=== PATIENT | female | born 1960 | race Caucasian/White ===

== ENCOUNTER 2019-04-27 11:02 | Emergency (ER) | payer OTHER, MEDICARE, SELFPAY ==
[2019-04-27 10:59] VITALS: BP 149/88; PULSE 80; RESP 12; TEMP 36.4; O2SAT 97
[2019-04-27 11:34] LABS: Basophils Absolute Auto 0.1 K/mm3 (0.0-0.1); Basophils Percent Auto 0.4 % (0.2-1.2); Eosinophils Absolute Auto 0.3 K/mm3 (0-0.3); Eosinophils Percent Auto 2.1 % (0-4.4); Hematocrit 41.6 % (37.0-47.0); Hemoglobin 13.5 g/dL (12.0-15.0); Immature Granulocyte Absolute 0.02 K/mm3 (0.00-0.031); Immature Granulocyte Percent A 0.2 % (0-0.5); Lymphocytes Absolute Auto 1.87 K/mm3 (0.9-3.2); Lymphocytes Percent Auto 15.4 % (18.3-44.2); Mean Corpuscular HGB Conc 32.5 g/dl (32-36); Mean Corpuscular Hemoglobin 30.3 pg (26-34); Mean Corpuscular Volume 93.3 fl (80-100); Mean Platelet Volume 10.5 fl (7.4-10.4); Monocytes Absolute Auto 0.7 K/mm3 (0.1-0.6); Monocytes Percent Auto 5.6 % (2.6-8.5); Neutrophils Absolute Auto 9.3 K/mm3 (1.3-6.7); Neutrophils Percent Auto 76.3 % (45.5-73.1); Platelet Count Result 247 k/mm3 (150-375); Red Blood Count 4.46 M/mm3 (4.2-5.4); Red Cell Distribution Width 14.7 % (11.5-14.5); White Blood Count 12.1 K/mm3 (4.5-10.0)
[2019-04-27 11:51] LABS: Alanine Aminotransferase 15 U/L (4-35); Alkaline Phosphatase 110 U/L (38-126); Aspartate Amino Transferase 19 U/L (14-36); Bilirubin,Total 0.7 mg/dL (0.2-1.3); Blood Urea Nitrogen 17 mg/dL (7-17); Calcium 8.9 mg/dL (8.4-10.2); Carbon Dioxide 29 mmol/L (22-30); Chloride 94 mmol/L (98-107); Estimated CRCL calculation 66 ml/min; Estimated Glomerular Filt Rate 57; Glucose 303 mg/dL (65-105); Potassium 4.2 mmol/L (3.4-5.0); Sodium 134 mmol/L (137-145)
--- NOTE | 2019-04-27 13:30 | ED.ABDPAIN ---
HPI - Abdominal Pain General Chief Complaint: Vaginal Bleeding Stated Complaint: VAG BLEED Time Seen by Provider: 04/27/19 11:14 Source: patient Mode of arrival: EMS Limitations: no limitations History of Present Illness HPI narrative: Patient presents with chief complaint of vaginal bleeding that was noted when she woke up this morning. Patient states that she had blood all over the bed sheets. care home staff states that patient went through 2 adult diapers. Patient denies any pain, weakness, dizziness, shortness of breath at this time. Patient states she has a history of vaginal bleeding and states during her last episode Dr. Rivera took her to the OR and performed a D&C. Patient states she also had a further evaluation which resulted that she was negative for cancer. Patient states she was informed by Dr. Rivera that if this happens again she will likely have to have a D&C or hysterectomy. Patient is on blood thinners due to past stroke. Patient also has diabetes. Related Data Home Medications Medication Instructions Recorded Confirmed acetaminophen 650 mg PO BID PRN 02/01/19 03/22/19 ascorbic acid (vitamin C) [Vitamin 500 mg PO BID 02/01/19 03/22/19 C] atorvastatin 80 mg PO HS 02/01/19 03/22/19 bumetanide 1 mg PO DAILY 02/01/19 03/22/19 clonidine HCl 0.1 mg PO BID 02/01/19 03/22/19 ergocalciferol (vitamin D2) 50,000 unit PO WEEKLY 02/01/19 03/22/19 [Vitamin D2] fluoxetine 20 mg PO DAILY 02/01/19 03/22/19 gentamicin 1 applic TOPICAL DIRECTED 02/01/19 03/22/19 hydrocodone-acetaminophen 1 tablet PO Q4H PRN 02/01/19 03/22/19 memantine 5 mg PO QAM 02/01/19 03/22/19 metoprolol succinate 25 mg PO DAILY 02/01/19 03/22/19 mupirocin 1 applic TOPICAL DIRECTED 02/01/19 03/22/19 senna 8.6 mg PO DAILY PRN 02/01/19 03/22/19 spironolactone 25 mg PO DAILY 02/01/19 03/22/19 Eliquis 5 mg PO BID 03/22/19 03/22/19 Saccharomyces boulardii 500 mg PO DAILY 03/22/19 03/22/19 cyanocobalamin (vitamin B-12) 1,000 mcg PO DAILY 03/22/19 03/22/19 [Vitamin B-12] Allergies Allergy/AdvReac Type Severity Reaction Status Date / Time No Known Allergies Allergy Unknown Verified 04/27/19 11:07 Review of Systems Review of Systems: Narrative: CONSTITUTIONAL: Denies fever, chills, or sweats. EYES: Denies visual changes, redness, or discharge. ENT: Denies rhinorrhea, congestion, sore throat, or otalgia. CARDIOVASCULAR: Denies chest pain, palpitations, or edema. RESPIRATORY: Denies cough or dyspnea. GASTROINTESTINAL: Denies abdominal pain, nausea, vomiting, or diarrhea. GENITOURINARY: Reports vaginal bleeding denies dysuria or hematuria. SKIN: Denies rash or itching. MUSCULOSKELETAL: Denies back pain, joint pain, or myalgia. NEUROLOGIC: Denies headache, numbness, dizziness, or weakness. PSYCHIATRIC: Denies anxiety or depression. [facility] Past Medical History Medical History (Updated 04/27/19 @ 14:06 by Jose Alberto Cardoso PA-C) Acute respiratory failure with hypoxia Current use of [facility] anticoagulation CVA (cerebral vascular accident) In 2015 and 2016, with residual right-sided weakness and expressive aphasia. Dementia Cognitive dysfunction felt to be a result of her strokes. Diastolic congestive heart failure Hypertension Morbid obesity Post-menopausal bleeding Status post endometrial curettage in January 2019 with benign pathology. Type 2 diabetes mellitus Insulin-dependent. Venous stasis ulcer Surgical History Surgical History (Updated 03/22/19 @ 17:11 by Marcela Bal PA-C) Status post debridement Upper buttock wound with necrotizing infection in 2016. Social History Social History (Updated 03/22/19 @ 17:28 by Marcela Bal PA-C) Social History: The patient lives at [facility] in [place]. She has been in prison since her stroke in 2016. No alcohol, tobacco, or drug use. Her brother, Mikey, is her healthcare power of mergers and acquisitions attorney. Her primary care providers Dr. Marty Birmingham. Terra
--- NOTE | 2019-04-27 13:33 | PC.NURSE ---
called pharm and requested insulin for pt, left on vm
[2019-04-27] MEDS: INSULIN ASPART (*BKC) 100 UNITS/ML SUB-Q (14:17)
[2019-04-27 14:18] VITALS: BP 153/93; PULSE 77; RESP 23; O2SAT 96
== END 2019-04-27 14:30 ==
PROVIDERS: Physician Assistant; Emergency Provider Emergency Medicine; PCP Student in an Organized Health Care Education/Training Program
DX: N93.9 Abnormal uterine and vaginal bleeding, unspecified (principal); E11.65 Type 2 diabetes mellitus with hyperglycemia; Z79.4 Long term (current) use of insulin; I69.920 Aphasia following unspecified cerebrovascular disease; I69.951 Hemiplegia and hemiparesis following unspecified cerebrovascular disease affecting right dominant side; I10 Essential (primary) hypertension; E66.9 Obesity, unspecified; Z68.43 Body mass index [BMI] 50.0-59.9, adult
CPT/HCPCS: 36415; 80053; 85025; 99284; J1815

== ENCOUNTER 2019-06-17 21:13 | Inpatient (IN) | payer OTHER, MEDICARE, SELFPAY ==
--- NOTE | ~2019-06-17 | XR_ITS ---
EXAMINATION: XR foot LT min 3V DATE: 06/18/2019 13:17 INDICATION: Left foot ulcer TECHNIQUE: Dorsoplantar, two oblique and lateral views of the left foot were obtained. COMPARISON: None. FINDINGS: Alignment is normal. No fracture. No cortical erosions or periosteal reaction. Mild osteoarthritis at the first metatarsophalangeal and a few interphalangeal joints. Moderate-sized plantar calcaneal spu r. Small enthesopathic ossicle at the distal Achilles tendon. No left ankle joint effusion. Diffuse s oft tissue swelling about the left foot, ankle and distal lower leg. Multiple dystrophic calcificatio ns in the soft tissues at the distal lower leg which can be seen with venous stasis. IMPRESSION: 1. No osteomyelitis or other acute osseous abnormality. Reviewed, dictated and finalized at location A.
--- NOTE | ~2019-06-17 | US_ITS ---
EXAMINATION: US pelvic complete w TV DATE: 06/18/2019 13:18 INDICATION: Postmenopausal bleeding TECHNIQUE: Multiple transabdominal sonographic images of the pelvis were obtained. Patient was unable to tolerate endovaginal probe. COMPARISON: 02/02/2019 FINDINGS: The uterus measures 10.4 x 3.7 x 6.8 cm. The endometrial complex measures 20 mm in thickness however this appears to be comprised almost exclusively by the endometrial canal with minimal more periphera l endometrial tissue. There is anechoic fluid within the endometrial canal at the fundus which appear s to delineate a hypoechoic endometrial filling defect with smooth margins but without definitive int ernal flow on color Doppler. There is a linear echogenic structure which appears to extend into the f luid collection from the region of the right uterine cornua. The right ovary measures 1.5 x 1.7 x 2.3 cm. The left ovary measures 1.7 x 2.2 x 1.7 cm. There is normal vascular flow in the ovaries. There is no free fluid in the pelvis. IMPRESSION: 1. Anechoic fluid surrounding hypoechoic material within the endometrial canal which appears to accou nt for the thickening of the endometrial complex. Differential for the echogenic material would inclu de clot, endometrial polyp, submucosal fibroid or malignancy. Recommend hysteroscopy for further eval uation. 2. Indeterminate linear echogenic structure which projects into the endometrial canal in the region o f the right uterine cornua. Correlate clinically for foreign body such as fallopian tube occlusion de vice. Differential would include calcified vessel or dystrophic myometrial calcifications. Reviewed, dictated and finalized at location A. IMPRESSION: 1. Anechoic fluid surrounding hypoechoic material within the endometrial canal which appears to account for the thickening of the endometrial complex. Differe ntial for the echogenic material would include clot, endometrial polyp, submuco liza fibroid or malignancy. Recommend hysteroscopy for further evaluation. 2. Indeterminate linear echogenic structure which projects into the endometrial canal in the region of the right uterine cornua. Correlate clinically for fore ign body such as fallopian tube occlusion device. Differential would include ca lcified vessel or dystrophic myometrial calcifications.
[2019-06-17 21:09] VITALS: BP 104/53; PULSE 84; RESP 22; TEMP 37.7; O2SAT 96
--- NOTE | 2019-06-17 22:39 | ED.FEMALEGU ---
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 Per brother states that the pt's H&H was 6.7 at the [facility], so they sent her here to get a blood transfusion. He reports that the pt has also been having confusion, lethargy, pallor, N/V and a fever of 100. He notes that the pt has a hx of abnormal vaginal bleeding in the past and was scheduled to have a hysteroscopy early next month, but states that it was canceled d/t the COVID pandemic. 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 MD elicited complaint: vaginal bleeding Pertinent past history: diabetes Onset (ago): week(s) (1) Location of symptoms: vaginal Vaginal bleeding: heavy Associated symptoms: fever (of 100), nausea, vomiting and other (confusion, lethargy, pallor) Related Data Home Medications Medication Instructions Recorded Confirmed atorvastatin 80 mg PO HS 02/01/19 06/18/19 bumetanide 1 mg PO DAILY 02/01/19 06/18/19 clonidine HCl 0.1 mg PO BID 02/01/19 06/18/19 ergocalciferol (vitamin D2) 50,000 unit PO WEEKLY 02/01/19 06/18/19 [Vitamin D2] fluoxetine 20 mg PO DAILY 02/01/19 06/18/19 memantine 5 mg PO QAM 02/01/19 06/18/19 metoprolol succinate 25 mg PO DAILY 02/01/19 06/18/19 spironolactone 25 mg PO DAILY 02/01/19 06/18/19 Eliquis 5 mg PO BID 03/22/19 06/18/19 NaCl-Zn ac-vit B6-citric acid See Rx Instructions .ROUTE .COMPLEX 06/18/19 06/18/19 [Wound Cleanser] mpbrwvfa-szbfiruko-cyxgotk HMB 1 ea PO BID 06/18/19 06/18/19 [Farhan] bismuth tribrom-petrolatum,wh 06/18/19 06/18/19 [Xeroform Non-Occlusive] calcium alginate 06/18/19 06/18/19 collagenase clostridium histo. 1 applic TOPICAL DAILY 06/18/19 06/18/19 [Santyl] ferrous sulfate 324 mg PO DAILY 06/18/19 06/18/19 insulin aspart U-100 [Novolog See Protocol SUBCUT ACINSULIN 06/18/19 06/18/19 Flexpen U-100 Insulin] losartan 50 mg PO DAILY 06/18/19 06/18/19 multivitamin with minerals 1 tablet PO DAILY 06/18/19 06/18/19 sodium hypochlorite [Dakin's See Rx Instructions .ROUTE .COMPLEX 06/18/19 06/18/19 Solution] Allergies Allergy/AdvReac Type Severity Reaction Status Date / Time No Known Allergies Allergy Unknown Verified 06/18/19 01:25 Review of Systems Review of Systems: All systems reviewed & are unremarkable except as noted in HPI and below Constitutional: Constitutional: Reports fever(s) (of 100) and Reports other (lethargy) Gastrointestinal: Gastrointestinal: Reports nausea and Reports vomiting Genitourinary: Genitourinary: Reports abnormal vaginal bleeding (heavy) Integumentary/Breasts: Skin/Breast: Reports other (pallor) Neurologic: Reports confusion PMFSH Family History Family History Grandparent Breast cancer Mother Carcinoma of colon Diabetes mellitus Hypertension Sibling Diabetes mellitus Sibling Diabetes mellitus Hypertension Sibling Diabetes mellitus Hypertension Father Diabetes mellitus Hypertension Social History Social History Social History: The patient lives at [facility] in [place]. She has been in [facility] since her stroke in 2016. No alcohol, tobacco, or drug use. Her brother, Mikey, is her healthcare power of commercial litigation attorney. Her primary care providers Dr. Marty Birmingham. Smoking status: Unknown if ever smoked Alcohol intake: unknown Substance use: unknown Substance use type: unknown Gender identity (if verbalized by the patient): Female Spiritual care concerns: No Agree to blood products: Yes Exam Const: General: no acute distress
[2019-06-17 22:43] LABS: Basophils Absolute Auto 0.1 K/mm3 (0.0-0.1); Basophils Percent Auto 0.4 % (0.2-1.2); Eosinophils Absolute Auto 0.1 K/mm3 (0-0.3); Eosinophils Percent Auto 0.4 % (0-4.4); Hematocrit 21.1 % (37.0-47.0); Immature Granulocyte Absolute 0.15 K/mm3 (0.00-0.031); Immature Granulocyte Percent A 0.9 % (0-0.5); Lymphocytes Percent Auto 13.5 % (18.3-44.2); Mean Corpuscular HGB Conc 31.3 g/dl (32-36); Mean Corpuscular Hemoglobin 30.7 pg (26-34); Mean Corpuscular Volume 98.1 fl (80-100); Mean Platelet Volume 10.7 fl (7.4-10.4); Monocytes Absolute Auto 1.1 K/mm3 (0.1-0.6); Monocytes Percent Auto 6.9 % (2.6-8.5); Neutrophils Absolute Auto 12.7 K/mm3 (1.3-6.7); Neutrophils Percent Auto 77.9 % (45.5-73.1); Nucleated Red Blood Cells Perc 0.2 % (0.0-0.2); Platelet Count Result 300 k/mm3 (150-375); Red Blood Count 2.15 M/mm3 (4.2-5.4); Red Cell Distribution Width 14.7 % (11.5-14.5); White Blood Count 16.4 K/mm3 (4.5-10.0)
[2019-06-17 22:46] LABS: Hemoglobin 6.6 g/dL (12.0-15.0)
[2019-06-17 22:53] LABS: INR 1.4; Prothrombin Time 16.5 Seconds (11.1-14.7)
[2019-06-17 22:54] LABS: Partial Thromboplastin Time 29.2 SECONDS (22.3-36.8)
[2019-06-17 22:56] LABS: Alanine Aminotransferase 13 U/L (4-35); Albumin Level 3.3 g/dL (3.5-5.1); Alkaline Phosphatase 76 U/L (38-126); Aspartate Amino Transferase 25 U/L (14-36); Bilirubin,Total 0.3 mg/dL (0.2-1.3); Blood Urea Nitrogen 35 mg/dL (7-17); Calcium 8.1 mg/dL (8.4-10.2); Carbon Dioxide 22 mmol/L (22-30); Chloride 100 mmol/L (98-107); Estimated CRCL calculation 58 ml/min; Estimated Glomerular Filt Rate 42; Glucose 166 mg/dL (65-105); Potassium 4.4 mmol/L (3.4-5.0); Sodium 132 mmol/L (137-145)
[2019-06-17] MEDS: SODIUM CHLORIDE 0.9% IV 1,000 ML 999 ML IV CONT (23:42)
[2019-06-17 23:47] LABS: Lactic Acid 1.6 mmol/L (0.7-2.1)
[2019-06-17 23:55] LABS: Add Urine Microscopic? NO; Appearance Urine Clear (Clear); Bilirubin Urine Negative (Negative); Blood Urine Negative (Negative); Color Urine Yellow (Yellow); Glucose Urine UA Negative (Negative); Ketones Urine Negative (Negative); Leukocyte Esterase Ur Negative LEU/UL (Negative); Nitrate Urine Negative (Negative); Protein Urine Negative (Negative); RBC Urine 0-2 /hpf (0-2); Specific Grav Ur 1.027 (1.001-1.035); Urobilinogen Urine Negative mg/dL (<2.0); WBC Urine 0-3 /hpf
[2019-06-18] VITALS (23 sets, daily range): BP systolic 94–122; BP diastolic 47–78; PULSE 18–99; RESP 18–99; TEMP 36.2–37.1; O2SAT 86–100; BMI 46.9
[2019-06-18 02:11] LABS: Hemoglobin 6.3 g/dL (12.0-15.0)
[2019-06-18 02:12] LABS: Hematocrit 19.5 % (37.0-47.0)
[2019-06-18] MEDS: SODIUM CHLORIDE 0.9% IV 250 ML 30 ML IV CONT ×3 (02:55→22:22)
--- NOTE | 2019-06-18 03:37 | ADMGEN ---
This patient, Maribell Kincaid, was admitted to Medical Room 256-01 at 0235. Patient/family oriented to hospital policies and general routines including ID bracelet, bed and alarms, visiting hours, pain management, procedures, bathroom and other care routines, personal items, smoking policy, room service/diet, and visiting hours. Valuables list has been completed. Information on how to activate the Rapid Response Team has been discussed. Patient/Family are encouraged to report perceived risks to care and to ask questions if they do not understand what they are told or what they should do.
[2019-06-18] MEDS: LACTATED RINGERS 1,000 ML 125 ML IV CONT (06:08)
[2019-06-18 08:09] LABS: Glucose Point of Care 194 (65-105)
[2019-06-18] MEDS: INSULIN ASPART (*BKC) 100 UNITS/ML SUB-Q ×3 (08:12→16:28)
[2019-06-18] MEDS: CLONIDINE HCL 0.1 MG TABLET PO ×2 (08:15→16:27)
[2019-06-18] MEDS: FERROUS SULFATE 324 MG TABLET PO (08:15)
[2019-06-18] MEDS: COLLAGENASE OINT 30 GM TUBE 1 APPLIC TOPICAL (08:15)
[2019-06-18] MEDS: METOPROLOL SUCCINATE EXT REL 25 MG TABCR PO (08:16)
[2019-06-18] MEDS: FLUOXETINE HCL 20 MG CAP PO (08:16)
[2019-06-18] MEDS: MEMANTINE 5 MG TABLET PO (08:16)
[2019-06-18] MEDS: THERAPEUTIC MULTIVITAMINS/MINERALS TAB (*BKC) 1 TABLET PO (08:16)
[2019-06-18] MEDS: TOLNAFTATE 1% POWDER 45 GM BTL 1 APPLIC TOPICAL ×2 (08:17→21:10)
[2019-06-18 08:42] LABS: Hematocrit 22.3 % (37.0-47.0); Hemoglobin 7.3 g/dL (12.0-15.0)
[2019-06-18 08:48] LABS: Hemoglobin A1C 7.6 % (<5.7)
--- NOTE | 2019-06-18 10:27 | P.CONIM_ITS ---
Assessment and Plan Assessment and plan (1) Postmenopausal vaginal bleeding: Code(s): N95.0 - Postmenopausal bleeding Status: Acute Assessment and Plan: Patient Hemodynamically stable; Dr. Banerjee is following and appreciate recommendations * Defer care to Dr. Banerjee * Gildardo on hold * Monitor * She will be getting transfusions today * Trend H&H (2) Anemia: Qualifiers: Anemia type: iron deficiency Iron deficiency anemia type: chronic blood loss Qualified Code(s): D50.0 - Iron deficiency anemia secondary to blood loss (chronic) Code(s): D64.9 - Anemia, unspecified Status: Acute Assessment and Plan: Likely secondary to above with underlying chronic anemia. Hgb stable at 6.5; transfusions today * Trend H&H * Transfusions as needed per Dr. Banerjee * Monitor (3) Wound of lower extremity: Code(s): S81.809A - Unspecified open wound, unspecified lower leg, initial encounter Status: Acute Assessment and Plan: Left heel wound. This is known diabetic foot wound; she was planned to have a debridement at [facility] on 06/19. After speaking with the SHOE SINGER there was no plan for initiating antibiotics yet. WBC 16.4; blood cultures pending. Wound has black eschar noted; surrounding tissue does not appear to be infected. * Pending length of stay, will consider Ortho Consult for further input. Should she be discharged tomorrow, likely follow up with Vascular Surgery at [facility] on 06/19 for debridement, however, unclear if this will occur in light of her bleeding/anemia * Will do left foot xray to r/o osteomyelitis * Will hold on antibiotics for now * Local wound care, as well as left buttocks * Wound care consulted, but they are not here over the weekends * Monitor closely (4) Hypertension: Qualifiers: Hypertension type: unspecified Qualified Code(s): I10 - Essential (primary) hypertension Code(s): I10 - Essential (primary) hypertension Status: Acute Assessment and Plan: BP reviewed and running soft overnight; currently stable. BP 120s sys this morning * Hold losartan, spironolactone, and bumetanide for now due to soft BP and MONTRELL * Will continue home clonidine and metoprolol for now * Monitor (5) MONTRELL (acute kidney injury): Code(s): N17.9 - Acute kidney failure, unspecified Status: Acute Assessment and Plan: Cr 1.30; likely due to volume depletion due to blood loss * Will trend with BMP this afternoon * Renally dose and avoid nephrotoxic agents if possible * Monitor * IVF repletion * Patient will be getting transfusions as well (6) Type 2 diabetes mellitus: Qualifiers: Diabetes mellitus nursing home insulin use: with buttermaker helper use Diabetes mellitus complication status: with hyperglycemia Qualified Code(s): E11.65 - Type 2 diabetes mellitus with hyperglycemia; Z79.4 - jail (current) use of insulin Code(s): E11.9 - Type 2 diabetes mellitus without complications Status: Chronic Assessment and Plan: A1c 7.6; BGL in 100s * Continue on home long acting insulin * Will do 5 u Novolog for meals * Accuchecks ACHS, hypoglycemia protocol, correctional insulin (7) CVA (cerebral vascular accident): Qualifiers: CVA mechanism: unspecified Qualified Code(s): I63.9 - Cerebral infarction, unspecified
--- NOTE | 2019-06-18 10:27 | PM.IMCN ---
Assessment and Plan Assessment and plan (1) Postmenopausal vaginal bleeding: Code(s): N95.0 - Postmenopausal bleeding Status: Acute Assessment and Plan: Patient Hemodynamically stable; Dr. Banerjee is following and appreciate recommendations Defer care to Dr. Lavonne Ewing on hold Monitor She will be getting transfusions today Trend H&H (2) Anemia: Qualifiers: Anemia type: iron deficiency Iron deficiency anemia type: chronic blood loss Qualified Code(s): D50.0 - Iron deficiency anemia secondary to blood loss (chronic) Code(s): D64.9 - Anemia, unspecified Status: Acute Assessment and Plan: Likely secondary to above with underlying chronic anemia. Hgb stable at 6.5; transfusions today Trend H&H Transfusions as needed per Dr. Banerjee Monitor (3) Wound of lower extremity: Code(s): S81.809A - Unspecified open wound, unspecified lower leg, initial encounter Status: Acute Assessment and Plan: Left heel wound. This is known diabetic foot wound; she was planned to have a debridement at [facility] on 06/19. After speaking with the PRODUCT LEAD there was no plan for initiating antibiotics yet. WBC 16.4; blood cultures pending. Wound has black eschar noted; surrounding tissue does not appear to be infected. Pending length of stay, will consider Ortho Consult for further input. Should she be discharged tomorrow, likely follow up with Vascular Surgery at [facility] on 06/19 for debridement, however, unclear if this will occur in light of her bleeding/anemia Will do left foot xray to r/o osteomyelitis Will hold on antibiotics for now Local wound care, as well as left buttocks Wound care consulted, but they are not here over the weekends Monitor closely (4) Hypertension: Qualifiers: Hypertension type: unspecified Qualified Code(s): I10 - Essential (primary) hypertension Code(s): I10 - Essential (primary) hypertension Status: Acute Assessment and Plan: BP reviewed and running soft overnight; currently stable. BP 120s sys this morning Hold losartan, spironolactone, and bumetanide for now due to soft BP and MONTRELL Will continue home clonidine and metoprolol for now Monitor (5) MONTRELL (acute kidney injury): Code(s): N17.9 - Acute kidney failure, unspecified Status: Acute Assessment and Plan: Cr 1.30; likely due to volume depletion due to blood loss Will trend with BMP this afternoon Renally dose and avoid nephrotoxic agents if possible Monitor IVF repletion Patient will be getting transfusions as well (6) Type 2 diabetes mellitus: Qualifiers: Diabetes mellitus buttermaker continuous churn insulin use: with nursing home use Diabetes mellitus complication status: with hyperglycemia Qualified Code(s): E11.65 - Type 2 diabetes mellitus with hyperglycemia; 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 Patient has chronic right sided deficit limiting her mobility Ambulate with assistance Fall precautions PT/OT consulted (8) Dementia: Code(s): F03.90 - Unspecified dementia without behavioral disturbance Status: Acute
--- NOTE | 2019-06-18 10:31 | PM.IMHP ---
H&P: HPI History of Present Illness Chief complaint: Anemia, vaginal bleeding Narrative: Maribell Kincaid is a 58 year old female with a long history of postmenopausal bleeding which is most likely secondary to her anticoagulation. She has had endometrial polyps on D and C in January. She has had intermittent bleeding since then. She has been recommended to get a hysterectomy at tertiary facility and has declined. The last plan was for a hysteroscopy D and C to determine if reoccurrence of polyps. She states that she has been bleeding. Her brother states that she had testing at [facility] yesterday in preparation for surgery on her foot. From report from nursing EVP MANAGING DIRECTOR the Eliquis was not stopped. It sounds like she was told she was anemic and was told to come to [place] for treatment of the anemia. In the ED her hgb was 6.6 and was 7.3 this am. She did have large clot on william changed this morning. Review of Systems Constitutional: Constitutional: Reports as per HPI and Reports fatigue ENT: Reports system reviewed and no additional complaints, except as documented Cardiovascular: Cardiovascular: Denies chest pain Gastrointestinal: Gastrointestinal: Reports no additional gastrointestinal complaints Musculoskeletal: Musculoskeletal: Reports other (left lower ulcer) Neurologic: Reports as per HPI Psychiatric: Psychiatric: Reports as per HPI [facility] Family History Family History Grandparent Breast cancer Mother Carcinoma of colon Diabetes mellitus Hypertension Sibling Diabetes mellitus Sibling Diabetes mellitus Hypertension Sibling Diabetes mellitus Hypertension Father Diabetes mellitus Hypertension Social History Social History Social History: The patient lives at [facility] in [place]. She has been in [facility] since her stroke in 2016. No alcohol, tobacco, or drug use. Her brother, Mikey, is her healthcare power of insurance attorney. Her primary care providers Dr. Marty Birmingham. Smoking status: Unknown if ever smoked Alcohol intake: unknown Substance use: unknown Substance use type: unknown Gender identity (if verbalized by the patient): Female Spiritual care concerns: No Agree to blood products: Yes Meds Home Medications and Allergies Home Medications Medication Instructions Recorded Confirmed Type atorvastatin 80 mg PO HS 02/01/19 06/18/19 History bumetanide 1 mg PO DAILY 02/01/19 06/18/19 History clonidine HCl 0.1 mg PO BID 02/01/19 06/18/19 History ergocalciferol (vitamin D2) 50,000 unit PO WEEKLY 02/01/19 06/18/19 History [Vitamin D2] fluoxetine 20 mg PO DAILY 02/01/19 06/18/19 History memantine 5 mg PO QAM 02/01/19 06/18/19 History metoprolol succinate 25 mg PO DAILY 02/01/19 06/18/19 History spironolactone 25 mg PO DAILY 02/01/19 06/18/19 History Eliquis 5 mg PO BID 03/22/19 06/18/19 History Basaglar KwikPen U-100 Insulin 21 units SUBCUT HS #0 03/26/19 06/18/19 Rx tolnaftate 1 applic TOPICAL Q12HR #45 gm 03/26/19 06/18/19 Rx NaCl-Zn ac-vit B6-citric acid See Rx Instructions .ROUTE .COMPLEX 06/18/19 06/18/19 History [Wound Cleanser] dolqluoi-geayuxbyn-ofciwxn HMB 1 ea PO BID 06/18/19 06/18/19 History [Farhan] bismuth tribrom-petrolatum,wh 06/18/19 06/18/19 History [Xeroform Non-Occlusive] calcium alginate 06/18/19 06/18/19 History collagenase clostridium histo. 1 applic TOPICAL DAILY 06/18/19 06/18/19 History [Santyl] ferrous sulfate 324 mg PO DAILY 06/18/19 06/18/19 History insulin aspart U-100 [Novolog See Protocol SUBCUT ACINSULIN 06/18/19 06/18/19 History Flexpen U-100 Insulin] losartan 50 mg PO DAILY 06/18/19 06/18/19 History multivitamin with minerals 1 tablet PO DAILY 06/18/19 06/18/19 History sodium hypochlorite [Dakin's See Rx Instructions .ROUTE .COMPLEX 06/18/19 06/18/19 History Solution] Allergies Allergy/AdvReac Type Sev
[2019-06-18 11:32] LABS: Mean Corpuscular Hemoglobin 31.3 pg (26-34); Mean Corpuscular Volume 97.6 fl (80-100); Mean Platelet Volume 10.4 fl (7.4-10.4); Platelet Count Result 261 k/mm3 (150-375); Red Blood Count 2.08 M/mm3 (4.2-5.4); Red Cell Distribution Width 14.7 % (11.5-14.5); White Blood Count 13.4 K/mm3 (4.5-10.0)
[2019-06-18 11:37] LABS: Hematocrit 20.3 % (37.0-47.0); Hemoglobin 6.5 g/dL (12.0-15.0)
[2019-06-18 12:03] LABS: Glucose Point of Care 184 (65-105)
[2019-06-18] MEDS: TUBING, BLOOD PLUM PUMP TUBING 1 EACH XX (16:16)
[2019-06-18 16:25] LABS: Glucose Point of Care 199 (65-105)
[2019-06-18 19:20] LABS: Hematocrit 23.2 % (37.0-47.0); Hemoglobin 7.2 g/dL (12.0-15.0)
[2019-06-18] MEDS: ATORVASTATIN 40 MG TABLET 80 MG PO (21:10)
[2019-06-18] MEDS: INSULIN GLARGINE (*BKC) 100 UNITS/ML 21 UNITS SUB-Q (21:11)
[2019-06-18 21:21] LABS: Glucose Point of Care 173 (65-105)
[2019-06-19] VITALS (20 sets, daily range): BP systolic 118–132; BP diastolic 51–66; PULSE 20–104; RESP 14–99; TEMP 35.9–36.5; O2SAT 94–100; BMI 10.0
[2019-06-19 00:31] LABS: Influenza Control Positive
--- NOTE | 2019-06-19 07:07 | PM.GYNPNOP ---
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 Despite Prometrium. I recommend Dilation and currettage, hysteroscopy, possible insertion of progesterone IUD. I talked with her power of disability attorney, Jose Kincaid, and he agrees. Informed of procedure and risk and benefits. I obtained verbal consent by Jose Kincaid. (2) Anemia: Qualifiers: Anemia type: other cause Other causes of anemia: acute posthemorrhagic Qualified Code(s): D62 - Acute posthemorrhagic anemia Code(s): D64.9 - Anemia, unspecified Status: Acute Postoperative Procedures: Procedures Operation Date: 06/19/19 07:30 <No data on this case meets the specified criteria> Time Spent With Patient Time: Total time spent is greater than 50% in coordination of care (as documented) at patient's floor/unit and/or counseling patient: Time with patient: less than 15 minutes CERTIFIED MASTER SAFECRACKER- PN:Subj Post-Op Subjective Date/time seen: 06/19/19 07:07 Patient awake and alert. She had several large clots and soaked william with urine with it per nurse report. Exam Const: General: no acute distress HENMT: Head: normocephalic Resp: Effort & Inspection: normal respiratory effort Cardio: Rate: tachycardic GI: GI Palp: No abdominal tenderness CERTIFIED MASTER SAFECRACKER - PN: Obj Data Vital Signs Vital Signs: Vital Signs - 24 hr 06/18/19 08:00 06/18/19 13:10 06/18/19 14:00 Temperature 97.8 F Pulse Rate 86 82 79 Respiratory Rate 20 20 Blood Pressure 114/78 Pulse Oximetry 99 97 06/18/19 15:14 06/18/19 15:30 06/18/19 15:45 Temperature 97.8 F 98.0 F 97.6 F Pulse Rate 79 79 80 Respiratory Rate 20 20 20 Blood Pressure 114/78 94/55 L 109/50 L Pulse Oximetry 97 94 94 06/18/19 16:30 06/18/19 17:00 06/18/19 17:30 Temperature 97.1 F L 97.4 F L Pulse Rate 81 79 74 Respiratory Rate 20 18 Blood Pressure 108/60 96/50 L Pulse Oximetry 100 94 06/18/19 20:00 06/18/19 21:46 06/18/19 22:40 Temperature 97.1 F L 97.6 F Pulse Rate 79 78 90 Respiratory Rate 18 18 Blood Pressure 108/56 L 118/53 L Pulse Oximetry 96 98 06/18/19 22:55 06/18/19 23:55 06/19/19 00:00 Temperature 97.4 F L 97.5 F L Pulse Rate 18 L 20 L 76 Respiratory Rate 99 H 98 H Blood Pressure 117/58 L 121/62 Pulse Oximetry 86 L 89 L 06/19/19 00:52 06/19/19 01:00 06/19/19 01:15 Temperature 97.7 F 97.7 F 97.5 F L Pulse Rate 92 92 88 Respiratory Rate 18 18 18 Blood Pressure 119/57 L 119/57 L 126/56 L Pulse Oximetry 99 98 06/19/19 02:15 06/19/19 03:15 06/19/19 03:45 Temperature 97.7 F 97.6 F 97.5 F L Pulse Rate 20 L 96 92 Respiratory Rate 99 H 20 20 Blood Pressure 122/54 L 124/51 L 119/55 L Pulse Oximetry 94 99 98 06/19/19 04:00 06/19/19 06:00 Temperature 97.5 F L Pulse Rate 76 104 H Respiratory Rate 18 Blood Pressure 119/52 L Pulse Oximetry 97 Intake/Output Intake/Output: Intake & Output 06/16/19 06/17/19 06/18/19 06/19/19 23:59 23:59 23:59 23:59 Intake Total 1000 2263 630 Balance 1000 2263 630 Meds/Results Medications: Active Medications Generic Name Dose Route Start Last Admin Trade Name Freq PRN Reason Stop Dose Admin Atorvastatin Calcium 80 mg 06/18/19 21:00 06/18/19 21:10 Lipitor PO 80 mg HS SEBLE Administration Clonidine HCl 0.1 mg 06/18/19 09:00 06/18/19 16:27 Catapres PO 0.1 mg BID SEBLE Administration Collagenase 1 applic 06/18/19 09:00 06/18/19 08:15 Santyl Oint TOPICAL 1 applic DAILY SEBLE Administration Dextrose 12.5 gm 06/18/19 07:21 Dextrose 50% Syringe IV PUSH PRN PRN Hypoglycemia Protocol Ferrous Sulfate 324 mg 06/18/19 09:00 06/18/19 08:15 Ferrous Sulfate PO 324 mg DAILY SEBLE Administration Fluoxetine HCl 20 mg 06/18/19 09:00 06/18/19 08:16 Prozac PO 20 mg DAILY SEBLE Administration Glucagon 1 mg
[2019-06-19 07:17] LABS: Basophils Absolute Auto 0.1 K/mm3 (0.0-0.1); Basophils Percent Auto 0.5 % (0.2-1.2); Eosinophils Absolute Auto 0.3 K/mm3 (0-0.3); Hematocrit 27.1 % (37.0-47.0); Hemoglobin 8.6 g/dL (12.0-15.0); Immature Granulocyte Percent A 0.9 % (0-0.5); Lymphocytes Absolute Auto 2.51 K/mm3 (0.9-3.2); Lymphocytes Percent Auto 22.9 % (18.3-44.2); Mean Corpuscular HGB Conc 31.7 g/dl (32-36); Mean Corpuscular Hemoglobin 29.8 pg (26-34); Mean Corpuscular Volume 93.8 fl (80-100); Mean Platelet Volume 10.2 fl (7.4-10.4); Monocytes Percent Auto 8.9 % (2.6-8.5); Neutrophils Percent Auto 63.8 % (45.5-73.1); Nucleated Red Blood Cells Perc 0.4 % (0.0-0.2); Platelet Count Result 243 k/mm3 (150-375); Red Blood Count 2.89 M/mm3 (4.2-5.4); Red Cell Distribution Width 17.3 % (11.5-14.5); White Blood Count 10.9 K/mm3 (4.5-10.0)
--- NOTE | 2019-06-19 07:36 | WPDANESEPPF ---
Anes - Initial Pre Proc Eval Procedure: Operation Date: 06/19/19 07:30 Proposed Procedures p Hysteroscopy Dilation and Curettage - Danny Banerjee MD Date/Time: 06/19/19 07:36 Surgeon: Danny Banerjee MD Pre Op Diagnosis: Anemia, vaginal bleeding Patient Data Age: 58 Gender: F Height: 5 ft 5 in Weight: 128 kg Last Vital Signs Temp 36.4 C L 06/19/19 06:00 Pulse 104 H 06/19/19 06:00 Resp 18 06/19/19 06:00 BP 119/52 L 06/19/19 06:00 Pulse Ox 97 06/19/19 06:00 Allergies Allergy/AdvReac Type Severity Reaction Status Date / Time No Known Allergies Allergy Unknown Verified 06/18/19 01:25 Home Medications Medication Instructions Recorded Confirmed Type atorvastatin 80 mg PO HS 02/01/19 06/18/19 History bumetanide 1 mg PO DAILY 02/01/19 06/18/19 History clonidine HCl 0.1 mg PO BID 02/01/19 06/18/19 History ergocalciferol (vitamin D2) 50,000 unit PO WEEKLY 02/01/19 06/18/19 History [Vitamin D2] fluoxetine 20 mg PO DAILY 02/01/19 06/18/19 History memantine 5 mg PO QAM 02/01/19 06/18/19 History metoprolol succinate 25 mg PO DAILY 02/01/19 06/18/19 History spironolactone 25 mg PO DAILY 02/01/19 06/18/19 History Eliquis 5 mg PO BID 03/22/19 06/18/19 History Basaglar KwikPen U-100 Insulin 21 units SUBCUT HS #0 03/26/19 06/18/19 Rx tolnaftate 1 applic TOPICAL Q12HR #45 gm 03/26/19 06/18/19 Rx NaCl-Zn ac-vit B6-citric acid See Rx Instructions .ROUTE .COMPLEX 06/18/19 06/18/19 History [Wound Cleanser] dkfyrefa-syiqnocza-sdukrvo HMB 1 ea PO BID 06/18/19 06/18/19 History [Farhan] bismuth tribrom-petrolatum,wh 06/18/19 06/18/19 History [Xeroform Non-Occlusive] calcium alginate 06/18/19 06/18/19 History collagenase clostridium histo. 1 applic TOPICAL DAILY 06/18/19 06/18/19 History [Santyl] ferrous sulfate 324 mg PO DAILY 06/18/19 06/18/19 History insulin aspart U-100 [Novolog See Protocol SUBCUT ACINSULIN 06/18/19 06/18/19 History Flexpen U-100 Insulin] losartan 50 mg PO DAILY 06/18/19 06/18/19 History multivitamin with minerals 1 tablet PO DAILY 06/18/19 06/18/19 History sodium hypochlorite [Dakin's See Rx Instructions .ROUTE .COMPLEX 06/18/19 06/18/19 History Solution] Laboratory Tests 06/17/19 06/18/19 06/18/19 22:38 08:04 08:35 WBC RBC Hgb 7.3 g/dL L g/dL (12.0-15.0) Hct 22.3 % L % (37.0-47.0) MCV MCH MCHC RDW Plt Count MPV Immature Gran % (Auto) Neut % (Auto) Lymph % (Auto) Teller % (Auto) Eos % (Auto) Baso % (Auto) Lymph # (Auto) Teller # (Auto) Eos # (Auto) Baso # (Auto) Abs Immat Gran (auto) Absolute Neuts (auto) Absolute Nucleated RBC Nucleated RBC % Sodium Potassium Chloride Carbon Dioxide BUN Creatinine Estim Creat Clear Calc Estimated GFR Glucose POC Capillary Glucose 194 mg/dl H mg/dl (65-105) Hemoglobin A1c Calcium Influenza Types A,B Ag Blood Type A Positive Antibody Screen Negative Crossmatch See Detail 06/18/19 06/18/19 06/18/19 08:35 11:26 12:00 WBC 13.4 K/mm3 H K/mm3 (4.5-10.0) RBC 2.08 M/mm3 L M/mm3 (4.2-5.4) Hgb 6.5 g/dL L* g/dL (12.0-15.0) Hct 20.3 % L* % (37.0-47.0) MCV 97.6 fl fl (80-100) MCH 31.3 pg pg (26-34) MCHC 32.0 g/dl g/dl (32-36) RDW 14.7 % H % (11.5-14.5) Plt Count 261 k/mm3 k/mm3 (150-375) MPV 10.4 fl fl (7.4-10.4) Immature Gran % (Auto) Neut % (Auto) Lymph % (Auto) Teller % (Auto)
[2019-06-19 07:37] LABS: Blood Urea Nitrogen 17 mg/dL (7-17); Calcium 8.2 mg/dL (8.4-10.2); Carbon Dioxide 28 mmol/L (22-30); Chloride 106 mmol/L (98-107); Estimated CRCL calculation 71 ml/min; Estimated Glomerular Filt Rate 57; Glucose 173 mg/dL (65-105); Potassium 4.3 mmol/L (3.4-5.0); Sodium 135 mmol/L (137-145)
[2019-06-19] MEDS: ceFAZolin SODIUM 1 GM VIAL IV PUSH (08:00)
--- NOTE | 2019-06-19 08:28 | PC.NURSE ---
Pt down in the OR,taken in the bed.
--- NOTE | 2019-06-19 08:31 | PM.PROC ---
Procedure Note - Detailed Date of procedure: 06/19/19 Pre-op diagnosis: Anemia, vaginal bleeding 1. Abnormal ultrasound finding Post-op diagnosis: other (3. Endometrial lesion suspect polyp) Procedure performed: Operative hysteroscopy with removal of endometrial growth and dilation and currettage 2. Insertion of Mirena IUD. Description of procedure: After informed consent was obtained. Patient was taken to operating room and placed in low lithotomy position. There was a large clot removed when she was being prepped.Weighed at 77 cc. IV sedation was obtained. The blood from vagina mixed with urine. Palacios catheter inserted. 500cc of clear urine obtained. Speculum was inserted. Single tooth tenaculum placed on anterior cervix. 10cc of 1% lidocaine plain was injected at cervicovaginal interface at 2,5,8,10 oclock. The cervix was noted to be slightly dilated. Uterus sound to 8cm but felt like a lot of tissue in cavity.The cervix was dilated to an 8 zuniga dilator. The hysteroscope was inserted. There was noted to be a growth protruding from cavity through upper cervical os. Could not visualize the rest of the cavity behind this. A stone polyp forcep was inserted. This did not get the growth. Then a myoma forcep was inserted into os cavity and a 4cm smooth elongated growth was removed. The hysteroscope was inserted. The rest of the cavity was visualized. There was some thickening lining posterior uterine wall. The rest of the lining appeared atrophic. An endometrial currettage was performed. Minimal tissue. The uterus was sounded again at 7.5cm. The Mirena IUD was inserted in sterile fashion. The IUD string was cut to 3 cm. Hemostasis noted at tenaculum site. No bleeding at os. The patient tolerated procedure well. Sponge count correct. Implants: IUD Anesthesia: MAC and local Surgeon: Danny Banerjee MD Estimated blood loss (mL): 10 Urine output (mL): 550 Drains: No Packing: No Pathology: yes (1. Endometrial currettings and removal of endometrial lesion) Complications: No immediate complications Condition: stable Disposition: PACU Findings: Large vaginal clot and vagina with blood and urine mix. Uterine cavity lesion 4cm elongated. Smooth ,suspect polyp.
[2019-06-19] MEDS: LACTATED RINGERS 1,000 ML 30 ML IV CONT (08:35)
[2019-06-19 08:59] LABS: Glucose Point of Care 176 (65-105)
--- NOTE | 2019-06-19 10:05 | PC.NURSE ---
Returned to the room per bed resting . Em pad dry and intact. Palacios intact.
[2019-06-19] MEDS: METOPROLOL SUCCINATE EXT REL 25 MG TABCR PO (10:16)
[2019-06-19] MEDS: THERAPEUTIC MULTIVITAMINS/MINERALS TAB (*BKC) 1 TABLET PO (10:16)
[2019-06-19] MEDS: CLONIDINE HCL 0.1 MG TABLET PO ×2 (10:16→17:28)
[2019-06-19] MEDS: FERROUS SULFATE 324 MG TABLET PO (10:17)
[2019-06-19] MEDS: APIXABAN 5 MG TABLET PO ×2 (10:17→17:28)
[2019-06-19] MEDS: BUMETANIDE 1 MG TABLET PO (10:17)
[2019-06-19] MEDS: MEMANTINE 5 MG TABLET PO (10:17)
[2019-06-19] MEDS: FLUOXETINE HCL 20 MG CAP PO (10:17)
[2019-06-19] MEDS: TOLNAFTATE 1% POWDER 45 GM BTL 1 APPLIC TOPICAL ×2 (10:18→21:21)
[2019-06-19] MEDS: COLLAGENASE OINT 30 GM TUBE 1 APPLIC TOPICAL (10:18)
[2019-06-19 12:07] LABS: Glucose Point of Care 170 (65-105)
[2019-06-19] MEDS: INSULIN ASPART (*BKC) 100 UNITS/ML SUB-Q ×3 (12:34→17:25)
--- NOTE | 2019-06-19 13:43 | P.PNIM_ITS ---
Progress Note: A&P Assessment and Plan (1) Postmenopausal vaginal bleeding: Code(s): N95.0 - Postmenopausal bleeding Status: Acute Assessment and Plan: Patient appears to be hemodynamically stable; Hgb [address] Banerjee is following and appreciate recommendations. Patient went for hysteroscopy with removal of endometrial growth, D&C and insertion of IUD today per Dr. Banerjee * Defer care to primary service; Eliquis resumed * Recommend monitoring overnight and trend H&H tomorrow; if stable, okay for discharge from Hospitalist standpoint * Monitor for bleeding (2) Anemia: Qualifiers: Anemia type: iron deficiency Iron deficiency anemia type: chronic blood loss Qualified Code(s): D50.0 - Iron deficiency anemia secondary to blood loss (chronic) Code(s): D64.9 - Anemia, unspecified Status: Acute Assessment and Plan: Likely secondary to above with underlying chronic anemia. Hgb stable at 8.6; transfusions yesterday * Trend H&H tomorrow * Transfusions as needed per Dr. Banerjee * Monitor (3) Wound of lower extremity: Code(s): S81.809A - Unspecified open wound, unspecified lower leg, initial encounter Status: Acute Assessment and Plan: Left heel wound. This is a known diabetic foot wound; she was planned to have a debridement at [facility] on 06/19. After speaking with the FLOOR DIRECTOR there was no plan for initiating antibiotics yet. WBC 10.9k today; blood cultures negative to date. Wound has black eschar noted; surrounding tissue does not appear to be infected. * Pending length of stay, will consider Ortho Consult for further input. Should she be discharged tomorrow, likely follow up with Vascular Surgery at [facility] on 06/19 for debridement, however, unclear if this will still be in light of her bleeding/anemia * Will do left foot xray to r/o osteomyelitis * Will hold on antibiotics for now * Local wound care to heal, as well as, left buttock * Wound care consulted, but they are not here over the weekends * Monitor closely * From hospitalist standpoint, anticipate discharge tomorrow if H&H/WBC stable. Wound does not appear to be acutely infected/no signs or symptoms of acute infection. Recommend following up with her established specialist for the same. (4) Hypertension: Qualifiers: Hypertension type: unspecified Qualified Code(s): I10 - Essential (primary) hypertension Code(s): I10 - Essential (primary) hypertension Status: Acute Assessment and Plan: BP reviewed and running soft overnight; currently stable. BP 120s sys this afternoon * Hold losartan, spironolactone for now due to soft BP and MONTRELL earlier in stay. Anticipate resuming tomorrow or on discharge * Will continue home clonidine and metoprolol for now * Monitor (5) MONTRELL (acute kidney injury): Code(s): N17.9 - Acute kidney failure, unspecified Status: Acute Assessment and Plan: Cr 1.00; likely due to volume depletion due to blood loss * Will trend with BMP this afternoon * Renally dose and avoid nephrotoxic agents if possible * Monitor (6) Type 2 diabetes mellitus: Qualifiers: Diabetes mellitus terminal press operator insulin use: with terminal press operator use Diabetes mellitus complication status: with hyperglycemia Qualified Code(s): E11.65 - Type 2 diabetes mellitus with hyperglycemia; Z79.4 - terminal gauger (current) use of insulin Code(s): E11.9 - T
--- NOTE | 2019-06-19 13:43 | PM.IMPN ---
Progress Note: A&P Assessment and Plan (1) Postmenopausal vaginal bleeding: Code(s): N95.0 - Postmenopausal bleeding Status: Acute Assessment and Plan: Patient appears to be hemodynamically stable; Hgb [address] Banerjee is following and appreciate recommendations. Patient went for hysteroscopy with removal of endometrial growth, D&C and insertion of IUD today per Dr. Banerjee Defer care to primary service; Eliquis resumed Recommend monitoring overnight and trend H&H tomorrow; if stable, okay for discharge from Hospitalist standpoint Monitor for bleeding (2) Anemia: Qualifiers: Anemia type: iron deficiency Iron deficiency anemia type: chronic blood loss Qualified Code(s): D50.0 - Iron deficiency anemia secondary to blood loss (chronic) Code(s): D64.9 - Anemia, unspecified Status: Acute Assessment and Plan: Likely secondary to above with underlying chronic anemia. Hgb stable at 8.6; transfusions yesterday Trend H&H tomorrow Transfusions as needed per Dr. Banerjee Monitor (3) Wound of lower extremity: Code(s): S81.809A - Unspecified open wound, unspecified lower leg, initial encounter Status: Acute Assessment and Plan: Left heel wound. This is a known diabetic foot wound; she was planned to have a debridement at [facility] on 06/19. After speaking with the COMPRESSOR BAT[employer]Y PELLETS there was no plan for initiating antibiotics yet. WBC 10.9k today; blood cultures negative to date. Wound has black eschar noted; surrounding tissue does not appear to be infected. Pending length of stay, will consider Ortho Consult for further input. Should she be discharged tomorrow, likely follow up with Vascular Surgery at [facility] on 06/19 for debridement, however, unclear if this will still be in light of her bleeding/anemia Will do left foot xray to r/o osteomyelitis Will hold on antibiotics for now Local wound care to heal, as well as, left buttock Wound care consulted, but they are not here over the weekends Monitor closely From hospitalist standpoint, anticipate discharge tomorrow if H&H/WBC stable. Wound does not appear to be acutely infected/no signs or symptoms of acute infection. Recommend following up with her established specialist for the same. (4) Hypertension: Qualifiers: Hypertension type: unspecified Qualified Code(s): I10 - Essential (primary) hypertension Code(s): I10 - Essential (primary) hypertension Status: Acute Assessment and Plan: BP reviewed and running soft overnight; currently stable. BP 120s sys this afternoon Hold losartan, spironolactone for now due to soft BP and MONTRELL earlier in stay. Anticipate resuming tomorrow or on discharge Will continue home clonidine and metoprolol for now Monitor (5) MONTRELL (acute kidney injury): Code(s): N17.9 - Acute kidney failure, unspecified Status: Acute Assessment and Plan: Cr 1.00; likely due to volume depletion due to blood loss Will trend with BMP this afternoon Renally dose and avoid nephrotoxic agents if possible Monitor (6) Type 2 diabetes mellitus: Qualifiers: Diabetes mellitus shelter insulin use: with shelter use Diabetes mellitus complication status: with hyperglycemia Qualified Code(s): E11.65 - Type 2 diabetes mellitus with hyperglycemia; Z79.4 - rn long term care (current) use of insulin Code(s): E11.9 - Type 2 diabetes mellitus without complications Status: Chronic Assessment and Plan: A1c 7.6; BGL in 170s today Continue on home long acting insulin Will do 5 u Novolog for meals Accuchecks ACHS, hypoglycemia protocol, correctional insulin (7) CVA (cerebral vascular accident): Qualifiers: CVA
[2019-06-19 16:33] LABS: Glucose Point of Care 249 (65-105)
[2019-06-19] MEDS: INSULIN GLARGINE (*BKC) 100 UNITS/ML 21 UNITS SUB-Q (21:21)
[2019-06-19] MEDS: ATORVASTATIN 40 MG TABLET 80 MG PO (21:21)
[2019-06-19 21:28] LABS: Glucose Point of Care 153 (65-105)
[2019-06-20] VITALS: PULSE 71
[2019-06-20 04:00] VITALS: PULSE 69
[2019-06-20 05:40] LABS: Hematocrit 27.5 % (37.0-47.0); Hemoglobin 8.6 g/dL (12.0-15.0); Mean Corpuscular HGB Conc 31.3 g/dl (32-36); Mean Corpuscular Hemoglobin 29.9 pg (26-34); Mean Corpuscular Volume 95.5 fl (80-100); Mean Platelet Volume 10.1 fl (7.4-10.4); Platelet Count Result 242 k/mm3 (150-375); Red Blood Count 2.88 M/mm3 (4.2-5.4); Red Cell Distribution Width 18.3 % (11.5-14.5); White Blood Count 12.3 K/mm3 (4.5-10.0)
[2019-06-20 06:00] VITALS: BP 112/52; PULSE 104; RESP 20; TEMP 36.1; O2SAT 98
[2019-06-20 08:00] VITALS: PULSE 64
[2019-06-20] MEDS: APIXABAN 5 MG TABLET PO (08:58)
[2019-06-20 08:59] VITALS: PULSE 104
[2019-06-20] MEDS: METOPROLOL SUCCINATE EXT REL 25 MG TABCR PO (08:59)
[2019-06-20] MEDS: FLUOXETINE HCL 20 MG CAP PO (08:59)
[2019-06-20] MEDS: FERROUS SULFATE 324 MG TABLET PO (08:59)
[2019-06-20] MEDS: THERAPEUTIC MULTIVITAMINS/MINERALS TAB (*BKC) 1 TABLET PO (08:59)
[2019-06-20] MEDS: MEMANTINE 5 MG TABLET PO (08:59)
[2019-06-20] MEDS: BUMETANIDE 1 MG TABLET PO (08:59)
[2019-06-20] MEDS: TOLNAFTATE 1% POWDER 45 GM BTL 1 APPLIC TOPICAL (09:01)
[2019-06-20] MEDS: INSULIN ASPART (*BKC) 100 UNITS/ML SUB-Q ×2 (09:01→11:42)
[2019-06-20] MEDS: CLONIDINE HCL 0.1 MG TABLET PO (09:02)
--- NOTE | 2019-06-20 09:38 | PM.GYNPNOP ---
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 Anemia stable- no symptoms of hypovolemia. Discharge today if cleared by medicine service. She should continue her iron supplementation. Postoperative Procedures: Procedures Operation Date: 06/19/19 07:30 Actual Procedures Side Surgeon p Hysteroscopy Dilation and Curettage, polypectomy & insertion of intrauterine device Danny Banerjee MD Time Spent With Patient Time: Total time spent is greater than 50% in coordination of care (as documented) at patient's floor/unit and/or counseling patient: Time with patient: less than 15 minutes LAWN MOWER MECHANIC- PN:Subj Post-Op Subjective Date/time seen: 06/20/19 09:38 She denies any bleeding. No pain. I discussed her surgery with her. Interval history: Patient is a 58 year old female with history of morbid obesity, history of stroke x2 with resultant expressive aphasia and right-sided hemiparesis, type 2 diabetes mellitus, and hypertension who for evaluation for vaginal bleeding and profound anemia likely due to acute blood loss; Hospitalist service consulted for medical management for other comorbidities. Patient is doing better today. She had D&C this morning per Dr. Banerjee. She is doing okay post operatively; does not think she has had any additional bleeding. She is more alert and oriented this morning, able to tell me her name and birthdate, and remembers me from previous hospital stay; she answers questions more appropriately. She has no other complaints today. Upon questioning, she answers to yes/no questions; she denies f/c/s, headaches, cp/palpitations, sob/cough, n/v/d/c, abd pain, changes in BMs, dysuria, hematuria, cloudy urine, calf pain/swelling. Exam Const: General: alert and awake Resp: Effort & Inspection: normal respiratory effort GI: Other: nontender : Other: Perineum dry pad Extrem: Other: nontender LAWN MOWER MECHANIC - PN: Obj Data Vital Signs Vital Signs: Vital Signs - 24 hr 06/19/19 09:50 06/19/19 12:00 06/19/19 14:00 Temperature 96.9 F L 97.0 F L Pulse Rate 73 67 67 Respiratory Rate 16 20 Blood Pressure 127/61 122/62 Pulse Oximetry 100 100 06/19/19 16:00 06/19/19 20:00 06/19/19 22:00 Temperature 96.7 F L Pulse Rate 67 66 74 Respiratory Rate 16 Blood Pressure 118/58 L Pulse Oximetry 97 06/20/19 00:00 06/20/19 04:00 06/20/19 06:00 Temperature 97.0 F L Pulse Rate 71 69 104 H Respiratory Rate 20 Blood Pressure 112/52 L Pulse Oximetry 98 06/20/19 08:59 Temperature Pulse Rate 104 H Respiratory Rate Blood Pressure Pulse Oximetry Intake/Output Intake/Output: Intake & Output 06/17/19 06/18/19 06/19/19 06/20/19 23:59 23:59 23:59 23:59 Intake Total 1000 2263 1160 200 Output Total 1950 Balance 1000 2263 -790 200 Meds/Results Medications: Active Medications Generic Name Dose Route Start Last Admin Trade Name Freq PRN Reason Stop Dose Admin Apixaban 5 mg 06/19/19 09:19 06/20/19 08:58 Eliquis PO 5 mg BID SEBLE Administration Atorvastatin Calcium 80 mg 06/18/19 21:00 06/19/19 21:21 Lipitor PO 80 mg HS SEBLE Administration Bumetanide 1 mg 06/19/19 09:19 06/20/19 08:59 Bumex Po PO 1 mg DAILY SEBLE Administration Clonidine HCl 0.1 mg 06/18/19 09:00 06/20/19 09:02 Catapres PO 0.1 mg BID SEBLE Administration Collagenase 1 applic 06/18/19 09:00 06/19/19 10:18 Santyl Oint TOPICAL 1 applic DAILY SEBLE Administration Dextrose 12.5 gm 06/18/19 07:21 Dextrose 50% Syringe IV PUSH PRN PRN Hypoglycemia Protocol Ergocalciferol 50,000 unit 06/22/19 09:00 Drisdol PO We@0900 SEBLE Ferrous Sulfate 324 mg 06/18/19 09:00 06/20/19 08:59 Ferrous Sulfate PO 324 mg DAILY SEBLE Administration Fluoxetine HCl 20 mg 06/18/19 09:00 06/20/19 08:59 Prozac PO 20 mg DAILY SEBLE
--- NOTE | 2019-06-20 09:42 | PM.DS ---
DS: Diagnosis Admitting Diagnosis Admitting Diagnosis: Postmenopausal bleeding DS: Summary Time Spent with Patient Time attestation: Total time spent providing and/or coordinating discharge services: DS: Data Data Completed and Pending Pending studies at discharge: Pending at discharge 06/19/19 08:23 Surgical [PTH] Routine Labs on day of discharge: Labs from last 24 hours 06/20/19 06/19/19 06/19/19 05:12 21:17 16:19 WBC 12.3 H RBC 2.88 L Hgb 8.6 L Hct 27.5 L MCV 95.5 MCH 29.9 MCHC 31.3 L RDW 18.3 H Plt Count 242 MPV 10.1 POC Capillary Glucose 153 H 249 H 06/19/19 11:58 WBC RBC Hgb Hct MCV MCH MCHC RDW Plt Count MPV POC Capillary Glucose 170 H Preliminary micro results at discharge 06/17/19 23:19 Blood Culture - Preliminary Blood 06/17/19 23:21 Blood Culture - Preliminary Blood Discharge Plan Discharge Attending physician on discharge: Danny Banerjee Consulting providers: Sim Grimes Discharging Clinician: Danny Banerjee Anticipated Discharge Date/Time: 06/20/19 09:43 Patient Disposition: Nursing Home Care Hospital Activity: july shower Diet: diabetic Discharge Instructions: Call for follow up appointment. Follow up in one month. Call for heavy bleeding or foul vaginal discharge. Will call her with results of pathology specimen. Continue home meds as per medicine service recommendations. Patient Instructions: Apixaban (By mouth), Heart Failure (DC), Dysfunctional Uterine Bleeding (DC), MRSA (Methicillin-Resistant Staphylococcus Aureus) (DC), Blood Thinners (DC) Stand Alone Forms: General Discharge Information, Long-Term Discharge Discharge Medications: Continued atorvastatin 80 mg Tablet 80 mg PO HS RF: 0 clonidine HCl 0.1 mg Tablet 0.1 mg PO BID RF: 0 spironolactone 25 mg Tablet 25 mg PO DAILY RF: 0 bumetanide 1 mg Tablet 1 mg PO DAILY RF: 0 ergocalciferol (vitamin D2) [Vitamin D2] 50,000 unit Capsule 50,000 unit PO WEEKLY RF: 0 fluoxetine 20 mg Capsule 20 mg PO DAILY RF: 0 metoprolol succinate 25 mg Capsule,Sprinkle,Er 24hr 25 mg PO DAILY RF: 0 Eliquis 5 mg Tablet 5 mg PO BID RF: 0 tolnaftate 1 % Powder 1 applic topical Q12HR Qty: 45 RF: 0 Basaglar KwikPen U-100 Insulin 21 units subcut HS Qty: 0 RF: 0 losartan 50 mg tablet 50 mg PO DAILY RF: 0 multivitamin with minerals Tablet 1 tablet PO DAILY RF: 0 Farhan 7-7-1.5 gram Powder In Packet 1 ea PO BID RF: 0 ferrous sulfate 325 mg (65 mg iron) tablet 324 mg PO DAILY RF: 0 Santyl 250 unit/gram Ointment 1 applic TOPICAL DAILY RF: 0 Dakin's Solution 0.25 % Solution See Rx Instructions .ROUTE .COMPLEX RF: 0 Wound Cleanser Olmitz,Non-Aerosol See Rx Instructions .ROUTE .COMPLEX RF: 0 (DME) Xeroform Non-Occlusive 4 X 3 -yard Bandage TOPICAL RF: 0 (DME) calcium alginate 4 X 4 Bandage TOPICAL RF: 0 insulin aspart U-100 [Novolog Flexpen U-100 Insulin] 100 unit/mL (3 mL) insulin pen See Protocol unit SUBCUT ACINSULIN RF: 0 No Action memantine 5 mg Tablet 5 mg PO QAM RF: 0 Date of admission: 06/18/19 01:39 Primary Care Provider: Gordy Guardado Admitting Provider: Danny Banerjee Attending physician on admission: Danny Banerjee Condition: Stable Quality VTE Prophylaxis VTE prophylaxis: pharmacologic ordered (Home eliquis resumed per primary service)
[2019-06-20 09:50] LABS: Glucose Point of Care 142 (65-105)
--- NOTE | 2019-06-20 09:55 | PM.IMPN ---
Progress Note: A&P Assessment and Plan (1) Postmenopausal vaginal bleeding: Code(s): N95.0 - Postmenopausal bleeding Status: Acute Assessment and Plan: Patient appears to be hemodynamically stable; Hgb 8.6 today; stable. Dr. Banerjee is following and appreciate recommendations. Patient went for hysteroscopy with removal of endometrial growth, D&C and insertion of IUD yesterday per Dr. Banerjee Defer care to primary service; Eliquis resumed Patient stable and okay for discharge from a medical standpoint Monitor for bleeding (2) Anemia: Qualifiers: Anemia type: iron deficiency Iron deficiency anemia type: chronic blood loss Qualified Code(s): D50.0 - Iron deficiency anemia secondary to blood loss (chronic) Code(s): D64.9 - Anemia, unspecified Status: Acute Assessment and Plan: Likely secondary to above with underlying chronic anemia. Hgb stable at 8.6; transfusions earlier in stay Further care per NH (3) Wound of lower extremity: Code(s): S81.809A - Unspecified open wound, unspecified lower leg, initial encounter Status: Acute Assessment and Plan: Left heel wound. This is a known diabetic foot wound; she was planned to have a debridement at [facility] on 06/19. After speaking with the CEMETERY KEEPER there was no plan for initiating antibiotics yet. WBC 10.9k today; blood cultures negative to date. Wound has black eschar noted; surrounding tissue does not appear to be infected. Recommend further care per [place] and her established specialist for the same xray negative for osteomyelitis No antibiotics during stay (4) Hypertension: Qualifiers: Hypertension type: unspecified Qualified Code(s): I10 - Essential (primary) hypertension Code(s): I10 - Essential (primary) hypertension Status: Acute Assessment and Plan: BP reviewed and running soft overnight; currently stable. BP 110s sys this morning Resume medications on discharge (5) MONTRELL (acute kidney injury): Code(s): N17.9 - Acute kidney failure, unspecified Status: Acute Assessment and Plan: Cr 1.00 yesterday; likely due to volume depletion due to blood loss Further care deferred to [facility] physician (6) Type 2 diabetes mellitus: Qualifiers: Diabetes mellitus fpc insulin use: with fpc use Diabetes mellitus complication status: with hyperglycemia Qualified Code(s): E11.65 - Type 2 diabetes mellitus with hyperglycemia; Z79.4 - buttermaker (current) use of insulin Code(s): E11.9 - Type 2 diabetes mellitus without complications Status: Chronic Assessment and Plan: A1c 7.6; BGL in 140s today Continue on home long acting insulin and short acting insulin regimen at discharge (7) CVA (cerebral vascular accident): Qualifiers: CVA mechanism: unspecified Qualified Code(s): I63.9 - Cerebral infarction, unspecified Code(s): I63.9 - Cerebral infarction, unspecified Status: Chronic Assessment and Plan: Old CVA. Patient has chronic right sided deficit limiting her mobility Ambulate with assistance Fall precautions PT/OT consulted (8) Dementia: Code(s): F03.90 - Unspecified dementia without behavioral disturbance Status: Acute Assessment and Plan: Will continue memantine Subjective Date/time seen: 06/20/19 09:55 This is a Hospitalist Consult progress note Interval history: Patient is a 58 year old female with history of morbid obesity, history of stroke x2 with resultant expressive aphasia and right-sided hemiparesis, type 2 diabetes mellitus, and hypertension who for evaluation for vaginal ble
--- NOTE | 2019-06-20 09:55 | WPDANESPN ---
Anes - Prog Note Post-Op Date/Time: 06/20/19 09:55 Vital Signs: Last Vital Signs Temp 97.0 F L 06/20/19 06:00 Pulse 104 H 06/20/19 08:59 Resp 20 06/20/19 06:00 BP 112/52 L 06/20/19 06:00 Pulse Ox 98 06/20/19 06:00 I/O: Intake & Output 06/19/19 06/20/19 06/20/19 23:59 07:59 15:59 Intake Total 240 200 240 Output Total 1400 Balance -1160 200 240 Laboratory Tests 06/20/19 05:12 06/19/19 06:53 06/19/19 06/19/19 06/19/19 11:58 16:19 21:17 WBC RBC Hgb Hct MCV MCH MCHC RDW Plt Count MPV POC Capillary Glucose 170 H 249 H 153 H 06/20/19 06/20/19 05:12 07:42 WBC 12.3 H RBC 2.88 L Hgb 8.6 L Hct 27.5 L MCV 95.5 MCH 29.9 MCHC 31.3 L RDW 18.3 H Plt Count 242 MPV 10.1 POC Capillary Glucose 142 H Microbiology 06/17/19 23:19 Blood Blood Culture - Preliminary 06/17/19 23:21 Blood Blood Culture - Preliminary Patient Feedback: Patient satisfied with anesthetic care.
[2019-06-20] MEDS: SILVERGEL (ELTA) 45 ML 1 APPLIC TOPICAL (11:41)
[2019-06-20] MEDS: SOD HYPOCHLORITE 1/4 STRENGTH 473 ML 1 APPLIC TOPICAL (11:42)
[2019-06-20 12:29] LABS: Glucose Point of Care 149 (65-105)
== END 2019-06-20 13:03 | DRG 744 ==
LOC: ANHED 22:36 → ANH2MED 06-18 01:51
PROVIDERS: Physician Assistant; Admitting Provider Obstetrics & Gynecology; Emergency Provider Emergency Medicine; PCP Family Medicine; Visit Provider Obstetrics & Gynecology
PROC: 0U5B8ZZ Destruction of Endometrium, Via Natural or Artificial Opening Endoscopic (ICD-10-PCS; CPT 58563; principal; 2019-06-19 07:30)
DX: N95.0 Postmenopausal bleeding (principal); L97.429 Non-pressure chronic ulcer of left heel and midfoot with unspecified severity; D62 Acute posthemorrhagic anemia; N17.9 Acute kidney failure, unspecified; Z68.42 Body mass index [BMI] 45.0-49.9, adult; I69.351 Hemiplegia and hemiparesis following cerebral infarction affecting right dominant side; I50.32 Chronic diastolic (congestive) heart failure; N84.0 Polyp of corpus uteri; I11.0 Hypertensive heart disease with heart failure; B95.62 Methicillin resistant Staphylococcus aureus infection as the cause of diseases classified elsewhere; E11.621 Type 2 diabetes mellitus with foot ulcer; E11.65 Type 2 diabetes mellitus with hyperglycemia; E66.01 Morbid (severe) obesity due to excess calories; F03.90 Unspecified dementia, unspecified severity, without behavioral disturbance, psychotic disturbance, mood disturbance, and anxiety; I69.318 Other symptoms and signs involving cognitive functions following cerebral infarction; Z79.4 Long term (current) use of insulin; I69.320 Aphasia following cerebral infarction; Z79.01 Long term (current) use of anticoagulants
CPT/HCPCS: 36415; 36430; 51701; 73630; 76830; 76856; 80048; 80053; 81003; 83036; 83605; 85014; 85018; 85025; 85027; 85610; 85730; 86850; 86900; 86901; 86923; 87040; 87804; 88305; 96360; 97110; 97161; 97165; 97530; 99285; A9270; J0690; J1815; J2250; J2405; J2704; J3010; J7030; J7050; J7120; P9016

== ENCOUNTER 2020-06-10 07:07 | Inpatient (IN) | payer MEDICARE, OTHER, SELFPAY ==
[2020-06-10] VITALS (32 sets, daily range): BP systolic 104–195; BP diastolic 40–121; PULSE 77–126; RESP 16–59; TEMP 36.9–38.7; O2SAT 88–98; BMI 48.6
--- NOTE | ~2020-06-10 | XR_ITS ---
EXAMINATION: XR chest 1V portable DATE: 06/10/2020 07:59 INDICATION: Shortness of breath. Recent COVID vaccine. TECHNIQUE: frontal view of the chest was obtained. COMPARISON: Chest radiograph dated 03/22/2019 FINDINGS: Again seen is a diffuse increased interstitial pattern in the bilateral mid and lower lung zones cons istent with mild pulmonary edema. No pleural effusion or pneumothorax. Borderline heart size accounti ng for AP technique. Moderate thoracic spondylosis. IMPRESSION: 1. Mild pulmonary edema in the mid and lower lung zones. Reviewed, dictated and finalized at location A.
--- NOTE | 2020-06-10 07:19 | ECG_ITS ---
Measurements Intervals [place] Rate: 120 P: 60 LA: 175 QRS: 103 QRSD: 93 T: 63 QT: 334 QTc: 472 Interpretive Statements SINUS TACHYCARDIA VENTRICULAR PREMATURE COMPLEX RIGHT AXIS DEVIATION BORDERLINE ST-T WAVE ABNORMALITY- INFERIOR LEADS BASELINE ARTIFACT- II, III, AVL, AVF, V1-V2, V4-V6 ABNORMAL ECG Electronically Signed On 06-10-2020 7:42:44 CDT by Cuong Sawant D.O.
--- NOTE | 2020-06-10 07:27 | ED.GENADULT ---
HPI - General Adult General Chief complaint: Shortness of Breath/Dyspnea Stated complaint: SOB Time Seen by Provider: 06/10/20 07:08 Source: patient History of Present Illness HPI narrative: Patient is a 59 y/o female complaining of mild SOB starting a few hours ago this morning. There is no alleviating or exacerbating factor. She also has some cough and she feels cold. She denies any chest pain, nausea or vomiting. Related Data Home Medications Medication Instructions Recorded Confirmed bumetanide 1 mg PO DAILY 02/01/19 06/18/19 ergocalciferol (vitamin D2) 50,000 unit PO WEEKLY 02/01/19 06/18/19 [Vitamin D2] fluoxetine 20 mg PO DAILY 02/01/19 06/18/19 memantine 10 mg PO QAM 02/01/19 06/18/19 metoprolol succinate 25 mg PO DAILY 02/01/19 06/18/19 Eliquis 5 mg PO BID 03/22/19 06/18/19 Wound Cleanser See Rx Instructions .ROUTE .COMPLEX 06/18/19 06/18/19 Xeroform Non-Occlusive 06/18/19 06/18/19 calcium alginate 06/18/19 06/18/19 ferrous sulfate 324 mg PO DAILY 06/18/19 06/18/19 insulin aspart U-100 [Novolog See Protocol SUBCUT ACINSULIN 06/18/19 06/18/19 Flexpen U-100 Insulin] losartan 50 mg PO DAILY 06/18/19 06/18/19 multivitamin with minerals 1 tablet PO DAILY 06/18/19 06/18/19 Trulicity 06/10/20 gabapentin 06/10/20 hydrocodone-acetaminophen 06/10/20 06/10/20 nystatin 06/10/20 Allergies Allergy/AdvReac Type Severity Reaction Status Date / Time No Known Allergies Allergy Unknown Verified 06/10/20 08:01 Review of Systems Constitutional: Constitutional: Reports chills, Reports fever(s), Denies headache(s) and Denies weakness Eyes: Eyes: Denies blurry vision ENT: Denies headache(s) and Denies neck pain Cardiovascular: Cardiovascular: Denies chest pain and Reports dyspnea Respiratory: Respiratory: Reports cough and Reports dyspnea Gastrointestinal: Gastrointestinal: Denies abdominal pain, Denies diarrhea, Denies nausea and Denies vomiting Genitourinary: Genitourinary: Denies hematuria and Denies dysuria Musculoskeletal: Musculoskeletal: Denies back pain and Denies neck pain Neurologic: Denies headache(s) and Denies weakness PMFSH Past Medical History Medical History (Updated 06/10/20 @ 12:43 by Irma Bennett MD) Anemia Cerebrovascular accident In 2015 and 2016, with residual right-sided weakness and expressive aphasia. Current use of fdc anticoagulation Dementia Cognitive dysfunction felt to be a result of her strokes. Diastolic congestive heart failure History of MRSA infection Hypertension Insulin dependent type 2 diabetes mellitus Hemoglobin A1c was 7.8% in May 2019. Morbid obesity Post-menopausal bleeding Endometrial curettage in January 2019 with benign pathology. Status post hysteroscopy with endometrial polypectomy in May 2019. Venous stasis ulcer Surgical History Surgical History (Updated 06/10/20 @ 12:42 by Marcela Bal PA-C) History of dilation and curettage Status post debridement Upper buttock wound with necrotizing infection in 2016. Family History Family History Grandparent Breast cancer Mother Carcinoma of colon Diabetes mellitus Hypertension Sibling Diabetes mellitus Sibling Diabetes mellitus Hypertension Sibling Diabetes mellitus Hypertension Father Diabetes mellitus Hypertension Social History Social History Social History: The patient lives at [facility] in [place]. She has been in [facility] since her stroke in 2016. No alcohol, tobacco, or drug use. Her brother, Mikey, is her healthcare power of employee benefits attorney. Her primary care providers Dr. Marty [place]. Smoking status: Unknown if ever smoked Alcohol intake: unknown Substance use: unknown Substance use type: unknown Gender identity (if verbalized by the patient): Female Spiritual care concerns: No Agree to blood products: Yes
[2020-06-10 07:42] LABS: Basophils Absolute Auto 0.1 K/mm3 (0.0-0.1); Basophils Percent Auto 0.4 % (0.2-1.2); Eosinophils Absolute Auto 0.2 K/mm3 (0-0.3); Eosinophils Percent Auto 0.9 % (0-4.4); Hematocrit 42.5 % (37.0-47.0); Hemoglobin 13.9 g/dL (12.0-15.0); Immature Granulocyte Absolute 0.09 K/mm3 (0.00-0.031); Immature Granulocyte Percent A 0.4 % (0-0.5); Lymphocytes Absolute Auto 0.94 K/mm3 (0.9-3.2); Lymphocytes Percent Auto 4.6 % (18.3-44.2); Mean Corpuscular HGB Conc 32.7 g/dl (32-36); Mean Corpuscular Hemoglobin 31.1 pg (26-34); Mean Corpuscular Volume 95.1 fl (80-100); Mean Platelet Volume 9.9 fl (7.4-10.4); Monocytes Absolute Auto 0.8 K/mm3 (0.1-0.6); Monocytes Percent Auto 3.9 % (2.6-8.5); Neutrophils Absolute Auto 18.4 K/mm3 (1.3-6.7); Neutrophils Percent Auto 89.8 % (45.5-73.1); Platelet Count Result 298 k/mm3 (150-375); Red Blood Count 4.47 M/mm3 (4.2-5.4); White Blood Count 20.5 K/mm3 (4.5-10.0)
[2020-06-10 07:50] LABS: Add Urine Microscopic? YES; Appearance Urine Cloudy (Clear); Bacteria Urine 2+ /hpf; Bilirubin Urine Negative (Negative); Blood Urine 2+ (Negative); Color Urine Yellow (Yellow); Glucose Urine UA Negative (Negative); Ketones Urine Negative (Negative); Leukocyte Esterase Ur 3+ LEU/UL (Negative); Mucus Urine Rare /lpf; Nitrate Urine Negative (Negative); Protein Urine 2+ mg/dL (Negative); Specific Grav Ur 1.009 (1.001-1.035); Urobilinogen Urine Negative mg/dL (<2.0); WBC Urine >75 /hpf
[2020-06-10 07:54] LABS: D Dimer 0.41 ug/mL (<0.48)
[2020-06-10] MEDS: ACETAMINOPHEN 325 MG TABLET 650 MG PO (07:54)
[2020-06-10 07:59] LABS: Lactic Acid Reflex 1.3 mmol/L (0.7-2.1)
[2020-06-10 08:00] LABS: Alanine Aminotransferase 15 U/L (4-35); Albumin Level 3.9 g/dL (3.5-5.1); Alkaline Phosphatase 113 U/L (38-126); Anion Gap 10 mmol/L (8-16); Aspartate Amino Transferase 22 U/L (14-36); Bilirubin,Total 0.8 mg/dL (0.2-1.3); Blood Urea Nitrogen 16 mg/dL (7-17); Calcium 8.6 mg/dL (8.4-10.2); Carbon Dioxide 30 mmol/L (22-30); Chloride 103 mmol/L (98-107); Estimated Glomerular Filt Rate 56; Glucose 209 mg/dL (65-105); Potassium 4.1 mmol/L (3.4-5.0); Sodium 143 mmol/L (137-145)
[2020-06-10 08:11] LABS: INR 1.2; Prothrombin Time 15.8 Seconds (11.1-14.7)
[2020-06-10 08:12] LABS: NT Pro B Type Natriuretic Pept 400 PG/ML (5-100); Troponin I < 0.012 ng/mL (0.000-0.034)
--- NOTE | 2020-06-10 09:47 | PC.NURSE ---
Note pt's LAC IV infiltrated. zithromax stopped. New IV initiated to left forearm. Pt complaining does not want to stay, does not have pneumonia, and does not have covid. Angry that brother isn't allowed to visit.
[2020-06-10] MEDS: FUROSEMIDE INJ 40 MG/4 ML VIAL IV PUSH (10:17)
--- NOTE | 2020-06-10 10:24 | PC.NURSE ---
Attempt to call report to 3rd med surg. Saida WEBBER is passing meds and will return call yu.
[2020-06-10 12:06] LABS: Troponin I < 0.012 ng/mL (0.000-0.034)
--- NOTE | 2020-06-10 13:00 | PM.IMHP ---
H&P: HPI History of Present Illness Date/Time: 06/10/20 13:00 Chief Complaint: Shortness of breath. Narrative: This is a 59-year-old female with history of stroke x2 with resultant expressive aphasia and right-sided weakness, type 2 diabetes mellitus, and hypertension who presented to the emergency department earlier this morning via EMS from [facility] for evaluation of shortness of breath. Sometime in the middle night she began feeling short of breath and this morning she reported to staff at [facility] that she was feeling cold. At that time she was found to be hypoxic with an SpO2 in the mid 70s and 911 was called. EMS placed her on 4 liters nasal cannula with improvement in her shortness of breath and oxygen saturations. On arrival to the emergency department she had a temperature 101.6? F and her chest x-ray demonstrated mild pulmonary edema in the mid and lower lung zones. Her urine is suspicious for urinary tract infection however she has not really had any symptoms of such. She has no known history of congestive heart failure or coronary disease. No chest pain, pleuritic pain, or palpitations. She denies dysphagia and concerns for aspiration. She has not had sinus congestion, rhinorrhea, otalgia, or odynophagia. No nausea, vomiting, or diarrhea. She has chronic lower extremity edema with chronic venous stasis which is unchanged. No known sick contacts. No joint swelling, warmth, or redness. Of note she has received both vaccinations for COVID-19. Review of Systems Review of Systems: Narrative: Twelve systems were reviewed with pertinent positives and negatives as per HPI. She denies headache. No cold or flu symptoms. No known exposure to those positive for COVID-19. No open wounds. She denies dysuria, urinary hesitancy, and urgency. No abdominal pain. No back pain. Denies concerns for aspiration. Except as documented, all other systems were reviewed and are negative. [facility] Past Medical History Medical History (Updated 06/10/20 @ 13:08 by Marcela Bal PA-C) Anemia Cerebrovascular accident In 2015 and 2016, with residual right-sided weakness and expressive aphasia. Current use of superintendent [employer] anticoagulation Dementia Cognitive dysfunction felt to be a result of her strokes. Diastolic congestive heart failure History of MRSA infection Hypertension Insulin dependent type 2 diabetes mellitus Hemoglobin A1c was 7.8% in May 2019. Morbid obesity Post-menopausal bleeding Endometrial curettage in January 2019 with benign pathology. Status post hysteroscopy with endometrial polypectomy in May 2019. Venous stasis ulcer Surgical History Surgical History (Updated 06/10/20 @ 12:44 by Marcela Bal PA-C) History of dilation and curettage History of hysteroscopy (~05/2019) Benign endometrial polyp. Status post debridement Upper buttock wound with necrotizing infection in 2017. Family History Family History Grandparent Breast cancer Mother Carcinoma of colon Diabetes mellitus Hypertension Sibling Diabetes mellitus Sibling Diabetes mellitus Hypertension Sibling Diabetes mellitus Hypertension Father Diabetes mellitus Hypertension Social History Social History (Updated 06/10/20 @ 12:47 by Marcela Bal PA-C) Social History: The patient lives at [facility]. She has been in care home since her stroke in 2016. No alcohol, tobacco, or drug use. Her brother, Mikey, is her healthcare power of county attorney. She is a full code. Smoking status: Never smoker Alcohol intake: unknown Substance use: unknown Substance use type: unknown Gender identity (if verbalized by the patient): Female Spiritual care concerns: No Agree to blood products: Yes Meds Home Medications and Allergies Home Medications Medication Instructions Recorded Confirmed Type bumetanide 1 mg PO DAILY 02/01/19 06/10/20 His
[2020-06-10 14:02] LABS: Glucose Point of Care 191 (65-105)
--- NOTE | 2020-06-10 14:07 | PC.NURSE ---
Addendum entered by Saida Doyle RN 06/10/20 14:10: 1044 WAS THE TIME CALLED AND GOT REPORT FROM ER Original Note: [id number] CALLED AND GOT REPORT.
[2020-06-10 14:57] LABS: Hemoglobin A1C 6.1 % (<5.7)
[2020-06-10 15:09] LABS: Troponin I < 0.012 ng/mL (0.000-0.034)
[2020-06-10 16:59] LABS: Glucose Point of Care 183 (65-105)
[2020-06-11] VITALS (9 sets, daily range): BP systolic 95–151; BP diastolic 63–79; PULSE 73–97; RESP 16–20; TEMP 36.4–37; O2SAT 93–99
[2020-06-11 01:24] LABS: Glucose Point of Care 150 (65-105)
[2020-06-11] MEDS: GABAPENTIN 300 MG CAPSULE PO ×3 (01:58→21:08)
[2020-06-11] MEDS: INSULIN GLARGINE (*BKC) 100 UNITS/ML 21 UNITS SUB-Q ×2 (01:58→21:10)
[2020-06-11 06:27] LABS: Basophils Absolute Auto 0.1 K/mm3 (0.0-0.1); Basophils Percent Auto 0.4 % (0.2-1.2); Eosinophils Absolute Auto 0.3 K/mm3 (0-0.3); Eosinophils Percent Auto 1.8 % (0-4.4); Hematocrit 37.7 % (37.0-47.0); Immature Granulocyte Absolute 0.07 K/mm3 (0.00-0.031); Immature Granulocyte Percent A 0.4 % (0-0.5); Lymphocytes Absolute Auto 1.49 K/mm3 (0.9-3.2); Lymphocytes Percent Auto 9.3 % (18.3-44.2); Mean Corpuscular HGB Conc 31.8 g/dl (32-36); Mean Corpuscular Volume 97.4 fl (80-100); Mean Platelet Volume 10.1 fl (7.4-10.4); Monocytes Absolute Auto 0.9 K/mm3 (0.1-0.6); Monocytes Percent Auto 5.8 % (2.6-8.5); Neutrophils Absolute Auto 13.2 K/mm3 (1.3-6.7); Neutrophils Percent Auto 82.3 % (45.5-73.1); Platelet Count Result 226 k/mm3 (150-375); Red Blood Count 3.87 M/mm3 (4.2-5.4); Red Cell Distribution Width 14.3 % (11.5-14.5); White Blood Count 16.1 K/mm3 (4.5-10.0)
[2020-06-11 06:48] LABS: Anion Gap 5 mmol/L (8-16); Blood Urea Nitrogen 19 mg/dL (7-17); Calcium 8.2 mg/dL (8.4-10.2); Carbon Dioxide 29 mmol/L (22-30); Chloride 105 mmol/L (98-107); Estimated CRCL calculation 79 ml/min; Estimated Glomerular Filt Rate > 60; Glucose 123 mg/dL (65-105); Potassium 3.2 mmol/L (3.4-5.0); Sodium 139 mmol/L (137-145)
[2020-06-11 08:52] LABS: Glucose Point of Care 124 (65-105)
[2020-06-11] MEDS: MEMANTINE 5 MG TABLET 10 MG PO (09:19)
[2020-06-11] MEDS: THERAPEUTIC MULTIVITAMINS/MINERALS TAB (*BKC) 1 TABLET PO (09:19)
[2020-06-11] MEDS: FERROUS SULFATE 324 MG TABLET PO (09:19)
[2020-06-11] MEDS: METOPROLOL SUCCINATE EXT REL 25 MG TABCR PO (09:20)
[2020-06-11] MEDS: LOSARTAN POTASSIUM 50 MG TABLET PO (09:20)
[2020-06-11] MEDS: BUMETANIDE INJ 1 MG/4 ML VIAL IV PUSH ×2 (09:21→17:32)
[2020-06-11] MEDS: APIXABAN 5 MG TABLET PO ×2 (09:21→17:32)
[2020-06-11] MEDS: FLUoxetine HCL 20 MG CAPSULE PO (09:21)
[2020-06-11] MEDS: TOLNAFTATE 1% POWDER 45 GM BTL 1 APPLIC TOPICAL ×2 (09:22→21:09)
[2020-06-11] MEDS: POTASSIUM CHLORIDE 20 MEQ TABLET 40 MEQ PO (09:25)
[2020-06-11 12:11] LABS: Glucose Point of Care 138 (65-105)
--- NOTE | 2020-06-11 12:53 | PCSTNOTE ---
Please refer to the Bedside Swallow Evaluation in the EMR. Please note, silent aspiration cannot be ruled out at bedside.
[2020-06-11 13:22] LABS: SARS-CoV-2 RNA PCR Negative
--- NOTE | 2020-06-11 17:19 | PM.IMPN ---
Progress Note: A&P Assessment and Plan (1) Acute respiratory failure with hypoxia: Code(s): J96.01 - Acute respiratory failure with hypoxia Status: Acute Assessment and Plan: Presumably secondary to pulmonary edema noted on chest x-ray. Cannot rule out developing pneumonia given fever with T-max of 101.6?. She denies dysphagia and concerns for aspiration and had an unremarkable swallow study done about a year ago. Pulmonary embolism unlikely as she is on apixaban. She is currently requiring 2 L supplemental oxygen and maintaining adequate O2 saturations. Continue supplemental O2 with goal saturation 92% or above. Wean to goal. Continue diuresis with 1 mg Bumex b.i.d. IV antibiotics for suspected developing pneumonia as detailed below (2) Abnormal chest x-ray: Code(s): R93.89 - Abnormal findings on diagnostic imaging of other specified body structures Status: Acute Assessment and Plan: Chest x-ray shows mild pulmonary edema in the mid and lower lung zones. Cannot rule out developing pneumonia given fever. Continue diuresis as well as antibiotics to include ceftriaxone and azithromycin. Supportive care to include bronchodilators, expectorants, antipyretics Supplemental O2 (3) Urinary tract infection: Code(s): N39.0 - Urinary tract infection, site not specified Status: Acute Assessment and Plan: UA suspicious for UTI however she denies symptoms of such. Preliminary urine culture demonstrates growth of Gram-negative bacilli. Continue ceftriaxone Await final urine culture results and tailor antibiotics accordingly. (4) Sepsis: Qualifiers: Sepsis acute organ dysfunction status: unspecified Sepsis type: sepsis due to unspecified organism Qualified Code(s): A41.9 - Sepsis, unspecified organism Code(s): A41.9 - Sepsis, unspecified organism Status: Acute Assessment and Plan: Present on admission and supported by fever, tachycardia, leukocytosis, and hypoxia. Source not entirely clear at this time but urinary tract infection most likely. Developing pneumonia may also be contributing. Cellulitis consider, however unlikely as lower extremity erythema is more likely related to chronic venous stasis. Lactic acid level was within normal limits. Leukocytosis improving. She has been afebrile today. Blood cultures have been obtained and are pending. Continue IV Rocephin for UTI. Azithromycin in addition to Rocephin for suspected pneumonia. Monitor vital signs closely. (5) Insulin dependent type 2 diabetes mellitus: Code(s): E11.9 - Type 2 diabetes mellitus without complications; Z79.4 - manager intermediate (current) use of insulin Status: Inactive Assessment and Plan: A1c is 6.1. Blood sugars reviewed and are fairly well controlled. Initiate sliding scale insulin, Accu-Cheks, and hypoglycemic protocol. Continue basal insulin. (6) Hypertension: Qualifiers: Hypertension type: unspecified Qualified Code(s): I10 - Essential (primary) hypertension Code(s): I10 - Essential (primary) hypertension Status: Acute Assessment and Plan: Blood pressures were reviewed and they are stable. Last BP 142/73. Continue losartan and metoprolol (7) Diastolic congestive heart failure: Code(s): I50.30 - Unspecified diastolic (congestive) heart failure Status: Acute Assessment and Plan: Chest x-ray shows mild pulmonary edema and she does have lower extremity edema. Continue diuresing with close monitoring of volume status. Echo has been ordered and is pending Monitor intake and output. Weigh patient daily. Heart healthy diet (8) COVID-19 ruled out by laboratory testing: Code(s): Z20.822 - Contact with and (suspected) exposure to COVID-19 Status: Acute Assessment and Plan: Negative test result on 06/10/2020. Isolation precautions discon
[2020-06-11 17:24] LABS: Glucose Point of Care 150 (65-105)
[2020-06-11] MEDS: SILVERGEL (ELTA) 45 ML 1 APPLIC TOPICAL (17:26)
[2020-06-11] MEDS: guaiFENesin 12 HR 600 MG TABCR PO (21:08)
[2020-06-11 21:25] LABS: Glucose Point of Care 130 (65-105)
[2020-06-12] VITALS: PULSE 75
[2020-06-12 04:00] VITALS: PULSE 72
[2020-06-12 06:00] VITALS: BP 114/53; PULSE 73; RESP 20; TEMP 36.7; O2SAT 96
[2020-06-12 06:12] LABS: Hematocrit 36.6 % (37.0-47.0); Hemoglobin 11.5 g/dL (12.0-15.0); Mean Corpuscular HGB Conc 31.4 g/dl (32-36); Mean Corpuscular Hemoglobin 30.7 pg (26-34); Mean Corpuscular Volume 97.6 fl (80-100); Mean Platelet Volume 10.2 fl (7.4-10.4); Platelet Count Result 230 k/mm3 (150-375); Red Blood Count 3.75 M/mm3 (4.2-5.4); Red Cell Distribution Width 14.4 % (11.5-14.5)
[2020-06-12 06:29] LABS: Anion Gap 3 mmol/L (8-16); Blood Urea Nitrogen 18 mg/dL (7-17); Calcium 8.1 mg/dL (8.4-10.2); Carbon Dioxide 31 mmol/L (22-30); Chloride 105 mmol/L (98-107); Estimated CRCL calculation 72 ml/min; Estimated Glomerular Filt Rate 56; Glucose 112 mg/dL (65-105); Magnesium 2.1 mg/dL (1.6-2.3); Potassium 3.7 mmol/L (3.4-5.0); Sodium 139 mmol/L (137-145)
[2020-06-12] MEDS: METOPROLOL SUCCINATE EXT REL 25 MG TABCR PO (07:49)
[2020-06-12] MEDS: LOSARTAN POTASSIUM 50 MG TABLET PO (07:49)
[2020-06-12] MEDS: MEMANTINE 5 MG TABLET 10 MG PO (07:49)
[2020-06-12] MEDS: APIXABAN 5 MG TABLET PO ×2 (07:50→18:55)
[2020-06-12] MEDS: FERROUS SULFATE 324 MG TABLET PO (07:50)
[2020-06-12] MEDS: FLUoxetine HCL 20 MG CAPSULE PO (07:50)
[2020-06-12] MEDS: BUMETANIDE INJ 1 MG/4 ML VIAL IV PUSH ×2 (07:50→18:55)
[2020-06-12] MEDS: guaiFENesin 12 HR 600 MG TABCR PO ×2 (07:50→20:19)
[2020-06-12] MEDS: GABAPENTIN 300 MG CAPSULE PO ×2 (07:58→20:19)
[2020-06-12] MEDS: THERAPEUTIC MULTIVITAMINS/MINERALS TAB (*BKC) 1 TABLET PO (07:58)
[2020-06-12 08:00] VITALS: PULSE 73; RESP 20; O2SAT 96
[2020-06-12] MEDS: TOLNAFTATE 1% POWDER 45 GM BTL 1 APPLIC TOPICAL ×2 (08:38→20:22)
--- NOTE | 2020-06-12 10:05 | PM.IMPN ---
Progress Note: A&P Assessment and Plan (1) Acute respiratory failure with hypoxia: Code(s): J96.01 - Acute respiratory failure with hypoxia Status: Acute Assessment and Plan: Presumably secondary to pulmonary edema noted on chest x-ray. Cannot rule out developing pneumonia given fever with T-max of 101.6?. She denies dysphagia and concerns for aspiration and had an unremarkable swallow study done about a year ago. Pulmonary embolism unlikely as she is on apixaban. She was weaned to room air today and she is tolerating this well so far. Continue supplemental O2 with goal saturation 92% or above. Wean to goal. Continue diuresis with 1 mg Bumex b.i.d. IV antibiotics for suspected developing pneumonia as detailed below (2) Abnormal chest x-ray: Code(s): R93.89 - Abnormal findings on diagnostic imaging of other specified body structures Status: Acute Assessment and Plan: Chest x-ray shows mild pulmonary edema in the mid and lower lung zones. Cannot rule out developing pneumonia given fever. Continue diuresis as well as antibiotics to include ceftriaxone and azithromycin (initiated 06/10/20). Supportive care to include bronchodilators, expectorants, antipyretics Supplemental O2 (3) Urinary tract infection: Code(s): N39.0 - Urinary tract infection, site not specified Status: Acute Assessment and Plan: UA suspicious for UTI however she denies symptoms of such. Final urine culture demonstrates Enterobacter cloacae complex susceptible to ceftriaxone. Continue ceftriaxone (initiated 06/10/20). Anticipate transition to oral antibiotic at discharge. (4) Sepsis: Qualifiers: Sepsis acute organ dysfunction status: unspecified Sepsis type: sepsis due to unspecified organism Qualified Code(s): A41.9 - Sepsis, unspecified organism Code(s): A41.9 - Sepsis, unspecified organism Status: Acute Assessment and Plan: Present on admission and supported by fever, tachycardia, leukocytosis, and hypoxia. Source not entirely clear at this time but urinary tract infection most likely. Developing pneumonia may also be contributing. Cellulitis consider, however unlikely as lower extremity erythema is more likely related to chronic venous stasis. Lactic acid level was within normal limits. Leukocytosis improving. She has been afebrile since 06/10. Preliminary blood cultures demonstrate NGTD. Continue IV Rocephin for UTI. Azithromycin in addition to Rocephin for suspected pneumonia. Monitor vital signs closely. (5) Insulin dependent type 2 diabetes mellitus: Code(s): E11.9 - Type 2 diabetes mellitus without complications; Z79.4 - penitentiary (current) use of insulin Status: Inactive Assessment and Plan: A1c is 6.1. Blood sugars reviewed and are at target. Continue sliding scale insulin, Accu-Cheks, and hypoglycemic protocol. Continue basal insulin. (6) Hypertension: Qualifiers: Hypertension type: unspecified Qualified Code(s): I10 - Essential (primary) hypertension Code(s): I10 - Essential (primary) hypertension Status: Acute Assessment and Plan: Blood pressures were reviewed and they reasonably controlled. Last BP 114/53. Continue losartan and metoprolol (7) Diastolic congestive heart failure: Code(s): I50.30 - Unspecified diastolic (congestive) heart failure Status: Acute Assessment and Plan: Chest x-ray shows mild pulmonary edema and she did have lower extremity edema which has improved. Continue diuresing with close monitoring of volume status. Echo has been ordered and is pending Monitor intake and output. Weigh patient daily. Heart healthy diet (8) COVID-19 ruled out by laboratory testing: Code(s): Z20.822 - Contact with and (suspected) exposure to COVID-19 Status: Acute Assessment and Plan: Negative test res
--- NOTE | 2020-06-12 12:53 | ECHO_ITS ---
Patient Info Name: Maribell Kincaid Age: 59 years : 1960 Gender: Female Ht: 65 in Wt: 292 lbs BSA: 2.54 m2 HR: 75 bpm BP: 151 / 79 mmHg Heart Rhythm: Sinus Rhythm Technical Quality: Good Exam Date: 06/12/2020 2:55 PM Exam Location: [facility] Patient Status: Inpatient Admit Date: 06/10/2020 Staff Ordering Physician: Marcela Bal PA-C Flat Optical Element Maker: Jeremiah Kingston RDCS, RT Attending Provider: Dana Nobles PA-C Referring Physician: Valeriano ORDOÑEZ; Exam Type: CA echo doppler color flow Study Info Indications I50.9 - Heart failure, unspecified Complete two-dimensional, color flow and Doppler transthoracic echocardiogram is performed. Summary 1. Complete two-dimensional, color flow and Doppler transthoracic echocardiogram is performed. 2. Left ventricular endocardium not well seen. There appears to be mild enlargement and mild eccentric left ventricular hypertrophy. The left ventricular function is at the lower limit of normal, or perhaps mildly hypokinetic. There is a suggestion of inferior wall hypokinesis seen on some views. Grade 2 diastolic dysfunction is present. 3. Left atrial chamber dimension is mildly enlarged. 4. No significant valve disease. 5. Dilated inferior vena cava. 6. Normal sinus rhythm. 7. Technically difficult study. Left Ventricle Left ventricular chamber dimension is mildly enlarged. Left ventricular systolic function is mildly reduced, estimated at 50-55%. There is mildly increased left ventricular wall thickness. Left ventricular septal wall motion is normal. The left ventricular diastolic function is grade I diastolic dysfunction. Right Ventricle Right ventricular chamber dimension is normal. Right ventricular systolic function is normal. Left Atria Left atrial chamber dimension is mildly enlarged. Right Atria Right atrial chamber dimension is normal. Aortic Valve The aortic valve is trileaflet. There is no aortic valve sclerosis. There is no aortic valve stenosis. There is no aortic valve regurgitation. Pulmonic Valve The pulmonic valve is normal. There is no pulmonic valve stenosis. There is no pulmonic regurgitation. Mitral Valve The mitral valve has normal leaflets. There is no mitral valve stenosis. There is no mitral valve regurgitation. Tricuspid Valve The tricuspid valve leaflets are normal. There is no significant tricuspid valve stenosis. There is no tricuspid valve regurgitation. No pulmonary hypertension, estimated pulmonary arterial systolic pressure is Empty. Pericardium/Pleural The pericardium appears normal. There is no pericardial effusion. Inferior Vena Cava Dilated inferior vena cava with >50% collapse upon inspiration consistent with Empty right atrial pressure, Empty. Aorta The aortic root size at the sinus of Valsalva is normal. The prox ascending aorta size is normal. Left Ventricular Outflow Tract Name Value Normal LVOT 2D LVOT Diameter 2.0 cm LVOT Doppler LVOT Peak Gradient 6 mmHg LVOT Mean Gradient 4 mmHg LVOT
[2020-06-12] MEDS: SILVERGEL (ELTA) 45 ML 1 APPLIC TOPICAL (13:10)
[2020-06-12 13:31] LABS: Glucose Point of Care 108 (65-105)
[2020-06-12 14:00] VITALS: BP 118/67; PULSE 74; RESP 24; TEMP 36.8; O2SAT 95
[2020-06-12 17:54] LABS: Glucose Point of Care 139 (65-105)
[2020-06-12] MEDS: INSULIN GLARGINE (*BKC) 100 UNITS/ML 21 UNITS SUB-Q (20:23)
[2020-06-12 21:33] LABS: Glucose Point of Care 130 (65-105)
[2020-06-12 22:00] VITALS: BP 144/60; PULSE 77; RESP 18; TEMP 36.1; O2SAT 96
[2020-06-13 06:00] VITALS: BP 138/64; PULSE 80; RESP 20; TEMP 36.3; O2SAT 90
[2020-06-13 06:42] LABS: Anion Gap 5 mmol/L (8-16); Blood Urea Nitrogen 19 mg/dL (7-17); Calcium 8.2 mg/dL (8.4-10.2); Carbon Dioxide 30 mmol/L (22-30); Chloride 103 mmol/L (98-107); Estimated CRCL calculation 66 ml/min; Estimated Glomerular Filt Rate 50; Glucose 123 mg/dL (65-105); Potassium 3.4 mmol/L (3.4-5.0); Sodium 138 mmol/L (137-145)
[2020-06-13 06:45] LABS: Hematocrit 37.1 % (37.0-47.0); Mean Corpuscular HGB Conc 32.3 g/dl (32-36); Mean Corpuscular Hemoglobin 31.2 pg (26-34); Mean Corpuscular Volume 96.4 fl (80-100); Mean Platelet Volume 10.2 fl (7.4-10.4); Platelet Count Result 262 k/mm3 (150-375); Red Blood Count 3.85 M/mm3 (4.2-5.4); Red Cell Distribution Width 14.3 % (11.5-14.5); White Blood Count 13.5 K/mm3 (4.5-10.0)
[2020-06-13 08:00] VITALS: PULSE 80; RESP 20; O2SAT 90
[2020-06-13 08:03] LABS: Glucose Point of Care 122 (65-105)
[2020-06-13] MEDS: FLUoxetine HCL 20 MG CAPSULE PO (09:35)
[2020-06-13] MEDS: FERROUS SULFATE 324 MG TABLET PO (09:35)
[2020-06-13] MEDS: THERAPEUTIC MULTIVITAMINS/MINERALS TAB (*BKC) 1 TABLET PO (09:35)
[2020-06-13 09:36] VITALS: PULSE 80
[2020-06-13] MEDS: MEMANTINE 5 MG TABLET 10 MG PO (09:36)
[2020-06-13] MEDS: APIXABAN 5 MG TABLET PO (09:36)
[2020-06-13] MEDS: METOPROLOL SUCCINATE EXT REL 25 MG TABCR PO (09:36)
[2020-06-13] MEDS: LOSARTAN POTASSIUM 50 MG TABLET PO (09:37)
[2020-06-13] MEDS: BUMETANIDE 1 MG TABLET PO (09:37)
[2020-06-13] MEDS: GABAPENTIN 300 MG CAPSULE PO (09:37)
[2020-06-13] MEDS: SILVERGEL (ELTA) 45 ML 1 APPLIC TOPICAL (09:37)
[2020-06-13] MEDS: guaiFENesin 12 HR 600 MG TABCR PO (09:37)
[2020-06-13] MEDS: TOLNAFTATE 1% POWDER 45 GM BTL 1 APPLIC TOPICAL (09:37)
[2020-06-13 12:29] LABS: Glucose Point of Care 123 (65-105)
[2020-06-13 14:00] VITALS: BP 120/72; PULSE 80; RESP 20; TEMP 36.3; O2SAT 96
--- NOTE | 2020-06-13 14:54 | PM.DS ---
DS: Admitting Diagnosis Admitting Diagnosis Admitting Diagnosis: CHF exacerbation, Pneumonia, and Urinary tract infection DS: Discharge Diagnosis Discharge Diagnosis (1) Acute respiratory failure with hypoxia: Code(s): J96.01 - Acute respiratory failure with hypoxia Status: Acute Assessment and Plan: Discharge Summary (Date of service 06/13/20): Ms. Kincaid is a 59 y.o. 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 She had no associated chest pain, pleuritic pain, or palpitations. She was noted to be hypoxic at the fpc with oxygen saturation in the 70s and EMS was activated. She was placed on 4 liters per nasal cannula with improvement. On arrival to the emergency department, vitals were notable for temperature of 101.6F, pulse rate of 124, tachypnea with respirations 32, and blood pressure 185/121. Labs were notable for markedly elevated WBC of 20,500 with neutrophil predominance. D-dimer was 0.41. BNP was 400. Troponin was <0.012 x3. EKG demonstrated sinus tachycardia, PVC, right axis deviation, and borderline ST-T abnormality in inferior leads. Lactic acid was 1.3. Urinalysis was grossly abnormal and suspicious for UTI. CXR demonstrated mild pulmonary edema in the mid and lower lung zones. She was treated with IV ceftriaxone and IV azithromycin for pneumonia and UTI admitted to the hospitalist service. She was treated with IV bumex for diuresis given pulmonary edema on CXR and concern for CHF exacerbation. Her dyspnea improved and she was weaned to room air on 06/12/20. Echocardiogram was ordered with results available after discharge and demonstrated mild left ventricular enlargement, mild eccentric left ventricular hypertrophy, left ventricular ejection fraction mildly reduced at 50-55% with possible inferior wall hypokinesis and grade 2 diastolic dysfunction. I called to discuss the echocardiogram findings with MIKE Vaughn at [facility], and recommended referral to cardiology and stress test and he stated that he will ensure the referral is taken care of. I also called to notify the patient's family and they said she follows with a cert pharmacy tech at [facility] and he will ensure she gets follow-up. She is on metoprolol and losartan which were continued. Worrisome signs and symptoms which would warrant return to the emergency department were discussed and the patient verbalized understanding. She was discharged in hemodynamically stable condition on the afternoon of 06/13/20. (2) HFrEF (heart failure with reduced ejection fraction): Code(s): I50.20 - Unspecified systolic (congestive) heart failure Status: Acute Assessment and Plan: Echocardiogram was ordered with results available after discharge and demonstrated mild left ventricular enlargement, mild eccentric left ventricular hypertrophy, left ventricular ejection fraction mildly reduced at 50-55% with possible inferior wall hypokinesis and grade 2 diastolic dysfunction. I called to discuss the echocardiogram findings with MIKE Vaughn at [facility], and recommended referral to cardiology and stress test and he stated that he will ensure the referral is taken care of. I also called to notify the patient's family and they said she follows with a cert pharmacy tech at [facility] and he will ensure she gets follow-up. She is on metoprolol and losartan which were continued. (3) Abnormal chest x-ray: Code(s): R93.89 - Abnormal findings on diagnostic imaging of other specified body structures Status: Acute Assessment and Plan: Chest x-ray showed mild pulmonary edema in the mid and lower lung zones and she was treated for with IV azithromycin and ceftriaxone for pneumonia given leukocytosis a
[2020-06-13 16:22] LABS: SARS-CoV-2 RNA PCR Negative
== END 2020-06-13 16:47 | DRG 871 ==
LOC: ANHED 09:48 → ANH3MEDSUR 09:51
PROVIDERS: Physician Assistant; Admitting Provider Family Medicine; Emergency Provider Emergency Medicine; PCP Family Medicine; Visit Provider Physician Assistant
DX: J96.01 Acute respiratory failure with hypoxia; A41.9 Sepsis, unspecified organism; J18.9 Pneumonia, unspecified organism; I50.43 Acute on chronic combined systolic (congestive) and diastolic (congestive) heart failure; N39.0 Urinary tract infection, site not specified; I69.351 Hemiplegia and hemiparesis following cerebral infarction affecting right dominant side; Z68.42 Body mass index [BMI] 45.0-49.9, adult; I11.0 Hypertensive heart disease with heart failure; F03.90 Unspecified dementia, unspecified severity, without behavioral disturbance, psychotic disturbance, mood disturbance, and anxiety; Z20.822 Contact with and (suspected) exposure to COVID-19; I69.320 Aphasia following cerebral infarction; E11.9 Type 2 diabetes mellitus without complications; E66.01 Morbid (severe) obesity due to excess calories; I87.2 Venous insufficiency (chronic) (peripheral); Z79.01 Long term (current) use of anticoagulants; Z79.4 Long term (current) use of insulin; Z86.14 Personal history of Methicillin resistant Staphylococcus aureus infection
CPT/HCPCS: 36415; 51701; 71045; 80048; 80053; 81001; 82948; 83036; 83605; 83735; 83880; 84484; 85025; 85027; 85380; 85610; 85730; 87040; 87077; 87086; 87088; 87186; 92610; 93005; 93306; 96365; 96375; 97110; 97161; 97530; 99291; A9270; C9803; J0456; J0696; J1815; J1940; U0003; U0005

== ENCOUNTER 2021-02-19 17:38 | Inpatient (IN) | payer MEDICARE, SELFPAY ==
[2021-02-19] VITALS (23 sets, daily range): BP systolic 98–152; BP diastolic 68–89; PULSE 107–124; RESP 22–38; TEMP 36.8; O2SAT 80–95
--- NOTE | ~2021-02-19 | XR_ITS ---
EXAMINATION: XR chest 1V portable DATE: 02/19/2021 22:27 INDICATION: Right-sided chest pain. Jaundice. Confusion. TECHNIQUE: A single frontal view of the chest was obtained. COMPARISON: Chest single view 06/10/2020 FINDINGS: There is mild atelectasis in the lower lung zones. No pleural effusion or pneumothorax. The heart size is normal. IMPRESSION: 1. Mild atelectasis in the lower lung zones. Reviewed, dictated and finalized at location A. PRESIDENT PRECISION MARKET INSIGHTS
--- NOTE | ~2021-02-19 | US_ITS ---
EXAMINATION: US perc cholecystostomy w imag DATE: 02/21/2021 15:57 INDICATION: Acute cholecystitis TECHNIQUE: The procedure including the risks and benefits was discussed with the patient. Risks discu ssed included bleeding including hemorrhage and bile peritonitis. Oral and written consent were obtai jazmine. The patient was confirmed to be receiving appropriate antibiotic coverage. The skin overlying t he liver and gallbladder was prepped and draped in usual sterile fashion. Anesthetic was administere d with 1% lidocaine subcutaneously. An 8.5 Fr catheter was inserted into the gallbladder by trocar t echnique. The metal stiffener and trocar needle were removed, and the pigtail tip was locked. Bile wa s aspirated and sent for culture. The catheter was stitched to the skin with suture. There were no im mediate complications. FINDINGS: The gallbladder is dilated with wall thickening and sludge, consistent with acute cholecyst itis. Ultrasound images demonstrate the catheter within the gallbladder. 220 mL bile was aspirated wi th 20 mL sent to the lab for Gram stain and cultures. Final images show the formed pigtail catheter tip in the gallbladder. IMPRESSION: 1. Successful ultrasound-guided cholecystostomy tube placement. 2. 20 mL bile was sent for aerobic, anaerobic, and fungal cultures. 3. The catheter will be managed by Dr. Starks. A catheter cholangiogram may be performed not less th an 48 hours after tube placement if clinically indicated to assess cystic duct patency. If cholecyst ectomy is not eventually performed and the infectious episode has resolved, the tube may be removed o nica a guidewire, preferably not less than 3 weeks after placement to allow time for a mature catheter tract to form to prevent bile leakage and peritonitis. Reviewed, dictated and finalized at location A. PENDENT VIDEO PRODUCER IMPRESSION: 1. Successful ultrasound-guided cholecystostomy tube placement. 2. 20 mL bile was sent for aerobic, anaerobic, and fungal cultures. 3. The catheter will be managed by Dr. Starks. A catheter cholangiogram may be performed not less than 48 hours after tube placement if clinically indicated to assess cystic duct patency. If cholecystectomy is not eventually performed and the infectious episode has resolved, the tube may be removed over a guidewi re, preferably not less than 3 weeks after placement to allow time for a mature catheter tract to form to prevent bile leakage and peritonitis.
--- NOTE | ~2021-02-19 | US_ITS ---
EXAMINATION: US right upper quadrant DATE: 02/19/2021 18:37 INDICATION: Right upper quadrant abdominal pain. Jaundice. TECHNIQUE: Multiple grayscale and Doppler ultrasound images of the abdomen were obtained. COMPARISON: None FINDINGS: The visualized portions of the body of the pancreas are normal. There is diffuse hepatic st eatosis. There is normal flow in main portal vein. The gallbladder is distended and contains sludge. No visible gallstones. Gallbladder wall thickening is noted. There is a positive sonographic Kingston s ign. The common duct is dilated to 8 mm. IMPRESSION: 1. Distended gallbladder with sludge, gallbladder wall thickening, and positive sonographic Kingston si gn, consistent with acute cholecystitis. 2. Diffuse hepatic steatosis. 3. Mildly dilated common duct. Reviewed, dictated and finalized at location A. WRIGHT IMPRESSION: 1. Distended gallbladder with sludge, gallbladder wall thickening, and positive sonographic Kingston sign, consistent with acute cholecystitis. 2. Diffuse hepatic steatosis. 3. Mildly dilated common duct.
--- NOTE | ~2021-02-19 | US_ITS ---
EXAMINATION: US renal BI EXAM DATE: 02/21/2021 15:13 INDICATION: Acute kidney insufficiency. Acute cholecystitis. TECHNIQUE: Multiple grayscale and Doppler images of the kidneys were obtained (by a technologist who performed the scan) and subsequently reviewed. Comparison is made to prior examination from . FINDINGS: Gallbladder was partially imaged, is distended with severe wall thickening. No sonographic evidence of gallbladder wall gas. Right kidney: There is normal contour and echogenicity. It measures 9.8 x 5.1 x 5.7 centimeters. Th ere are no focal renal lesions identified. There is no hydronephrosis. Left kidney: There is normal contour and echogenicity. It measures 11.1 x 5.0 x 7.4 centimeters. Th ere are no focal renal lesions identified. There is no hydronephrosis. Bladder is undistended, Palacios catheter balloon in position. IMPRESSION: 1. Sonographically unremarkable kidneys. Reviewed, dictated and finalized at location A. BAR AND SEGMENT ASSEMBLER
--- NOTE | ~2021-02-19 | CT_ITS ---
EXAMINATION: CT brain wo con DATE: 02/19/2021 23:19 INDICATION: Confusion. TECHNIQUE: Computed tomography (CT) of the head was performed without intravenous contrast. The mA wa s adjusted according to patient size. Iterative reconstruction technique was employed. The dose-lengt h product was 681.00 mGy-cm. COMPARISON: Head CT 02/20/2017 FINDINGS: There is an old infarct involving left parietal, occipital, and temporal lobes. There is an old infarct involving left thalamus. There are scattered areas of low attenuation in the cerebral wh ite matter. There is no intracranial hemorrhage, acute infarction, or abnormal intracranial mass les ion. There is ex vacuo dilatation of left lateral ventricle. There is mild mucosal thickening in the ethmoid sinuses. There is a trace right mastoid effusion. IMPRESSION: 1. Old infarcts involving the left parietal, occipital, and temporal lobes and left thalamus. 2. Mild nonspecific cerebral white matter disease, which likely represents chronic small vessel ische rolando disease. Reviewed, dictated and finalized at location A. EARER IMPRESSION: 1. Old infarcts involving the left parietal, occipital, and temporal lobes and left thalamus. 2. Mild nonspecific cerebral white matter disease, which likely represents bar roller ted small vessel ischemic disease.
--- NOTE | ~2021-02-19 | XR_ITS ---
EXAMINATION: XR chest port-a-cath/central DATE: 02/21/2021 10:02 INDICATION: Central line placement TECHNIQUE: frontal view of the chest was obtained. COMPARISON: Chest radiograph dated 02/21/2021 FINDINGS: Right internal jugular central venous catheter with distal tip in the midsuperior vena cava. Persiste nt opacities in the left mid to lower and right lower lung zones. No pleural effusion or pneumothorax . Cardiomegaly. Severe right glenohumeral osteoarthritis. IMPRESSION: 1. No significant change in opacities in the left mid to lower and right lower lung zones which could represent atelectasis and/or pneumonia. Reviewed, dictated and finalized at location A. BAIT PICKER
--- NOTE | ~2021-02-19 | XR_ITS ---
XR chest 1V portable 02/21/2021 08:26 Indication: Pneumonia and shortness of breath Procedure: AP portable chest Comparison: Comparison to multiple prior studies sequentially, with oldest reviewed study dated 02/22. Findings: Cardiomegaly. Bibasilar airspace disease may represent atelectasis and/or pneumonia. Possib le small effusion. No pneumothorax. No acute osseous abnormality. Impression: 1: Bibasilar airspace disease atelectasis/or pneumonia. Reviewed, dictated and finalized at location B. OWING WORKER Impression: 1: Bibasilar airspace disease atelectasis/or pneumonia.
--- NOTE | ~2021-02-19 | CT_ITS ---
EXAMINATION: CT abdomen pelvis wo con DATE: 02/19/2021 23:19 INDICATION: Jaundice. TECHNIQUE: Computed tomography (CT) of the abdomen and pelvis was performed without intravenous contr ast. Automated exposure control and iterative reconstruction technique were employed. The dose-length product was 1606.07 mGy-cm. COMPARISON: Abdomen ultrasound 02/19/2021 FINDINGS: The visualized portions of the lung bases demonstrate mild atelectasis. No pleural effusion . The heart size is normal. There are coronary artery calcifications. No pericardial effusion. The li nica and spleen are normal. The gallbladder is distended and contains sludge. There is fat stranding a round the gallbladder. The pancreas, adrenal glands, and kidneys are normal. There is an intrauterine device in expected position. There are no dilated loops of bowel. The appendix is normal. There are no pathologically enlarged lymph nodes. There is no free intraperitoneal fluid. There are bridging en dplate osteophytes at multiple levels in the spine, consistent with diffuse idiopathic skeletal hyper ostosis (DISH). There are chronic bilateral L5 pars defects. There is a 10 mm anterolisthesis of L5 o n S1. There is severe lower lumbar spondylosis. IMPRESSION: 1. Acute cholecystitis. Reviewed, dictated and finalized at location A. DDED FILLER HOPPER FEEDER IMPRESSION: 1. Acute cholecystitis.
--- NOTE | ~2021-02-19 | XR_ITS ---
EXAMINATION: XR abdomen NG/feed tube insert DATE: 02/23/2021 17:31 INDICATION: Nasogastric tube placement. TECHNIQUE: A supine view of the abdomen on 2 radiographs was obtained. COMPARISON: CT abdomen and pelvis 02/19/2021. FINDINGS: The lower abdomen is excluded. There are no visible dilated loops of bowel. The nasogastric tube tip is in the distal stomach. A percutaneous cholecystostomy tube is noted. IMPRESSION: 1. Nasogastric tube tip in the distal stomach. Reviewed, dictated and finalized at location A. RACTIVE GRAPHIC DESIGNER
[2021-02-19] MEDS: SODIUM CHLORIDE 0.9% IV 1,000 ML 999 ML IV CONT (19:05)
[2021-02-19] MEDS: MORPHINE SULFATE (*CRX) 4 MG/ML INJ IV PUSH (19:06)
[2021-02-19] MEDS: ONDANSETRON INJ 4 MG/2 ML VIAL IV PUSH (19:06)
--- NOTE | 2021-02-19 19:09 | ED.GENADULT ---
HPI - General Adult General Chief complaint: Altered Mental Status Stated complaint: Altered mental status Time Seen by Provider: 02/19/21 17:48 History of Present Illness HPI narrative: Patient is a 60-year-old female who presents the ER with reports of new onset confusion as well as abdominal pain and vomiting. Furthermore long term realized that she is also newly jaundiced. Patient has history of CVA and is oriented x2-3 at baseline and is currently only oriented x1. Symptoms ongoing over the last day Related Data Home Medications Medication Instructions Recorded Confirmed bumetanide 1 mg PO DAILY 02/01/19 06/10/20 ergocalciferol (vitamin D2) 50,000 unit PO WEEKLY 02/01/19 06/10/20 [Vitamin D2] fluoxetine 20 mg PO DAILY 02/01/19 06/10/20 memantine 10 mg PO QAM 02/01/19 06/10/20 metoprolol succinate 25 mg PO DAILY 02/01/19 06/10/20 Eliquis 5 mg PO BID 03/22/19 06/10/20 Wound Cleanser See Rx Instructions .ROUTE .COMPLEX 06/18/19 06/18/19 Xeroform Non-Occlusive 06/18/19 06/18/19 calcium alginate 06/18/19 06/18/19 ferrous sulfate 324 mg PO DAILY 06/18/19 06/10/20 insulin aspart U-100 [Novolog 5 unit SUBCUT TID 06/18/19 06/10/20 Flexpen U-100 Insulin] losartan 50 mg PO DAILY 06/18/19 06/10/20 multivitamin with minerals 1 tablet PO DAILY 06/18/19 06/10/20 Trulicity 0.75 mg SUBCUT WEEKLY 06/10/20 06/10/20 gabapentin 300 mg PO BID 06/10/20 06/10/20 hydrocodone-acetaminophen 1 tablet PO BID 06/10/20 06/10/20 nystatin 100,000 units TOPICAL BID 06/10/20 06/10/20 Allergies Allergy/AdvReac Type Severity Reaction Status Date / Time No Known Allergies Allergy Unknown Verified 06/10/20 13:01 Review of Systems Review of Systems: ROS unobtainable: Yes unobtainable due to medical condition PMFSH Past Medical History Medical History (Updated 02/19/21 @ 20:47 by Armand Art MD) Anemia Cerebrovascular accident In 2016 and 2016, with residual right-sided weakness and expressive aphasia. Chronic venous insufficiency Current use of moth exterminator anticoagulation Dementia Cognitive dysfunction felt to be a result of her strokes. Diastolic congestive heart failure History of MRSA infection Hypertension Insulin dependent type 2 diabetes mellitus Hemoglobin A1c was 7.8% in May 2019. Morbid obesity Post-menopausal bleeding Endometrial curettage in January 2019 with benign pathology. Status post hysteroscopy with endometrial polypectomy in May 2019. Venous stasis ulcer Surgical History Surgical History (Updated 06/10/20 @ 12:44 by Marcela Bal PA-C) History of dilation and curettage History of hysteroscopy (~05/2019) Benign endometrial polyp. Status post debridement Upper buttock wound with necrotizing infection in 2017. Family History Family History Grandparent Breast cancer Mother Carcinoma of colon Diabetes mellitus Hypertension Sibling Diabetes mellitus Sibling Diabetes mellitus Hypertension Sibling Diabetes mellitus Hypertension Father Diabetes mellitus Hypertension Social History Social History (Updated 06/10/20 @ 12:47 by Marcela Bal PA-C) Social History: The patient lives at [place]. She has been in long term since her stroke in 2016. No alcohol, tobacco, or drug use. Her brother, Mikey, is her healthcare power of regulatory attorney. She is a full code. Smoking status: Never smoker Alcohol intake: unknown Substance use: unknown Substance use type: unknown Gender identity (if verbalized by the patient): Female Spiritual care concerns: No Agree to blood products: Yes Exam Narrative: GENERAL: Chronically ill-appearing, morbidly obese, and in no acute distress. HEAD: Normocephalic, atraumatic. EYES: PERRL and EOMI. scleral icterus noted. CHEST: Clear to auscultation. No respiratory distress. HEART: Regular rate and rhythm. Normal peripheral pulses. ABDOMEN: Soft, exquis
--- NOTE | 2021-02-19 19:15 | PC.NURSE ---
RN attempted multiple times to obtain labs. Pt very difficult stick. 22g IV initiated for meds, not able to get enough blood for labs. made aware.
--- NOTE | 2021-02-19 19:42 | PC.NURSE ---
Phlebotomy called due to inability to obtain labs.
--- NOTE | 2021-02-19 20:11 | PC.NURSE ---
journeyman glazier from lab unable to get all of ordered blood. pt difficult stick.
[2021-02-19 20:18] LABS: Hematocrit 44.6 % (37.0-47.0); Hemoglobin 15.3 g/dL (12.0-15.0); Mean Corpuscular HGB Conc 34.3 g/dl (32-36); Mean Corpuscular Volume 99.1 fl (80-100); Mean Platelet Volume 10.5 fl (7.4-10.4); Platelet Count Result 245 k/mm3 (150-375); Red Cell Distribution Width 13.5 % (11.5-14.5); White Blood Count 28.8 K/mm3 (4.5-10.0)
--- NOTE | 2021-02-19 20:19 | PC.NURSE ---
additional phleb in room to attempt lab draw.
[2021-02-19 20:21] LABS: INR 1.3
[2021-02-19 20:22] LABS: Partial Thromboplastin Time 37.2 SECONDS (22.3-36.8)
[2021-02-19 20:31] LABS: Lymphocytes Absolute Manual 0.86 K/mm3 (1.1-4.5); Lymphocytes Percent Manual 3 % (18-44); Neutrophils Percent Manual 83 % (46-73); Platelet Estimate Adequate (Adequate)
[2021-02-19 20:32] LABS: Monocytes Absolute Manual 4.03 K/mm3 (0.1-0.90); Monocytes Percent Manual 14 % (3-9)
[2021-02-19 20:46] LABS: Alanine Aminotransferase 136 U/L (4-35); Alkaline Phosphatase 513 U/L (38-126); Anion Gap 11 mmol/L (8-16); Aspartate Amino Transferase 65 U/L (14-36); Blood Urea Nitrogen 22 mg/dL (7-17); Calcium 8.9 mg/dL (8.4-10.2); Carbon Dioxide 24 mmol/L (22-30); Chloride 95 mmol/L (98-107); Estimated Glomerular Filt Rate 35; Glucose 336 mg/dL (65-110); Potassium 3.7 mmol/L (3.4-5.0); Sodium 130 mmol/L (137-145)
--- NOTE | 2021-02-19 22:12 | PM.IMHP ---
H&P: HPI History of Present Illness Date/Time: 02/19/21 22:12 Chief Complaint: Confusion Narrative: Patient is a 60-year-old female who presents the ER with reports of new onset confusion as well as abdominal pain and vomiting. She is from a [facility] and was noted to have jaundice. She has a history of CVA with right-sided weakness and expressive aphasia and most of the history was very limited because of this. She verbalizes some but does not able to complete the sentences. She was noted to have acute cholecystitis in her right upper quadrant and was noted to have elevated liver enzymes. General surgery and GI has been consulted from the ER. She is planned for an ERCP in the morning for further evaluation. She is thus admitted for further evaluation and management. Review of Systems Review of Systems: ROS unobtainable: Yes unobtainable due to medical condition [facility] Past Medical History Medical History (Updated 02/19/21 @ 20:47 by Armand Art MD) Anemia Cerebrovascular accident In 2015 and 2016, with residual right-sided weakness and expressive aphasia. Chronic venous insufficiency Current use of recreational assistant anticoagulation Dementia Cognitive dysfunction felt to be a result of her strokes. Diastolic congestive heart failure History of MRSA infection Hypertension Insulin dependent type 2 diabetes mellitus Hemoglobin A1c was 7.8% in May 2019. Morbid obesity Post-menopausal bleeding Endometrial curettage in January 2019 with benign pathology. Status post hysteroscopy with endometrial polypectomy in May 2019. Venous stasis ulcer Surgical History Surgical History (Updated 06/10/20 @ 12:44 by Marcela Bal PA-C) History of dilation and curettage History of hysteroscopy (~05/2019) Benign endometrial polyp. Status post debridement Upper buttock wound with necrotizing infection in 2016. Family History Family History Grandparent Breast cancer Mother Carcinoma of colon Diabetes mellitus Hypertension Sibling Diabetes mellitus Sibling Diabetes mellitus Hypertension Sibling Diabetes mellitus Hypertension Father Diabetes mellitus Hypertension Social History Social History (Updated 06/10/20 @ 12:47 by Marcela Bal PA-C) Social History: The patient lives at [place]. She has been in fpc since her stroke in 2016. No alcohol, tobacco, or drug use. Her brother, Mikey, is her healthcare power of disability attorney. She is a full code. Smoking status: Never smoker Alcohol intake: unknown Substance use: unknown Substance use type: unknown Gender identity (if verbalized by the patient): Female Spiritual care concerns: No Agree to blood products: Yes Meds Home Medications and Allergies Home Medications Medication Instructions Recorded Confirmed Type bumetanide 1 mg PO DAILY 02/01/19 06/10/20 History ergocalciferol (vitamin D2) 50,000 unit PO WEEKLY 02/01/19 06/10/20 History [Vitamin D2] fluoxetine 20 mg PO DAILY 02/01/19 06/10/20 History memantine 10 mg PO QAM 02/01/19 06/10/20 History metoprolol succinate 25 mg PO DAILY 02/01/19 06/10/20 History Eliquis 5 mg PO BID 03/22/19 06/10/20 History Basaglar KwikPen U-100 Insulin 21 units SUBCUT HS #0 03/26/19 06/10/20 Rx Wound Cleanser See Rx Instructions .ROUTE .COMPLEX 06/18/19 06/18/19 History Xeroform Non-Occlusive 06/18/19 06/18/19 History calcium alginate 06/18/19 06/18/19 History ferrous sulfate 324 mg PO DAILY 06/18/19 06/10/20 History insulin aspart U-100 [Novolog 5 unit SUBCUT TID 06/18/19 06/10/20 History Flexpen U-100 Insulin] losartan 50 mg PO DAILY 06/18/19 06/10/20 History multivitamin with minerals 1 tablet PO DAILY 06/18/19 06/10/20 History Trulicity 0.75 mg SUBCUT WEEKLY 06/10/20 06/10/20 History gabapentin 300 mg PO BID 06/10/20 06/10/20 History hydrocodone-acetaminophen 1 tablet PO BID 06/10/20 06/10/20 History ny
--- NOTE | 2021-02-19 23:27 | PC.NURSE ---
No Marlena in pyxis. Spoke with pharmacy, awaiting dose.
[2021-02-19] MEDS: SODIUM CHLORIDE 0.9% IV 1,000 ML 125 ML IV CONT (23:32)
--- NOTE | 2021-02-19 23:39 | PC.NURSE ---
Abx infusing. Pt updated on admission bed assignment. Pt's mental status improving, able to communicate more. Denies any needs at this time. Waiting transport to admission room.
[2021-02-20 00:20] VITALS: BP 118/62; PULSE 100; RESP 22; TEMP 36.2; O2SAT 91; BMI 49.4
[2021-02-20 01:01] VITALS: BMI 47.8
[2021-02-20 06:00] VITALS: BP 125/66; PULSE 97; RESP 20; TEMP 36.6; O2SAT 92
[2021-02-20 06:40] LABS: Basophils Absolute Auto 0.1 K/mm3 (0.0-0.1); Basophils Percent Auto 0.2 % (0.2-1.2); Eosinophils Absolute Auto 0.1 K/mm3 (0-0.3); Eosinophils Percent Auto 0.2 % (0-4.4); Hematocrit 39.9 % (37.0-47.0); Hemoglobin 13.5 g/dL (12.0-15.0); Immature Granulocyte Absolute 0.68 K/mm3 (0.00-0.031); Immature Granulocyte Percent A 2.3 % (0-0.5); Lymphocytes Absolute Auto 0.69 K/mm3 (0.9-3.2); Lymphocytes Percent Auto 2.3 % (18.3-44.2); Mean Corpuscular HGB Conc 33.8 g/dl (32-36); Mean Corpuscular Hemoglobin 33.3 pg (26-34); Mean Corpuscular Volume 98.3 fl (80-100); Mean Platelet Volume 10.8 fl (7.4-10.4); Monocytes Percent Auto 6.7 % (2.6-8.5); Neutrophils Absolute Auto 26.5 K/mm3 (1.3-6.7); Neutrophils Percent Auto 88.3 % (45.5-73.1); Platelet Count Result 308 k/mm3 (150-375); Red Blood Count 4.06 M/mm3 (4.2-5.4); Red Cell Distribution Width 13.5 % (11.5-14.5)
[2021-02-20 07:06] LABS: Alanine Aminotransferase 126 U/L (4-35); Albumin Level 3.4 g/dL (3.5-5.1); Alkaline Phosphatase 514 U/L (38-126); Anion Gap 12 mmol/L (8-16); Aspartate Amino Transferase 149 U/L (14-36); Bilirubin Direct 2.9 mg/dL (0-0.3); Bilirubin,Total 5.7 mg/dL (0.2-1.3); Blood Urea Nitrogen 27 mg/dL (7-17); Calcium 8.5 mg/dL (8.4-10.2); Carbon Dioxide 21 mmol/L (22-30); Chloride 97 mmol/L (98-107); Estimated CRCL calculation 39 ml/min; Estimated Glomerular Filt Rate 25; Glucose 340 mg/dL (65-110); Lipase 27 U/L (23-300); Potassium 3.8 mmol/L (3.4-5.0); Sodium 130 mmol/L (137-145)
--- NOTE | 2021-02-20 07:06 | WPDGICN ---
Assessment and Plan Assessment and plan (1) Obstructive jaundice: Code(s): K83.1 - Obstruction of bile duct Status: Acute Assessment and Plan: will schedule her for ERCP to be done tomorrow because of suspected choledocholithiasis. Her anticoagulant has been held (2) Acute cholecystitis: Code(s): K81.0 - Acute cholecystitis Status: Acute Assessment and Plan: Dr. Starks has been consulted (3) CVA (cerebral vascular accident): Qualifiers: CVA mechanism: unspecified Qualified Code(s): I63.9 - Cerebral infarction, unspecified Code(s): I63.9 - Cerebral infarction, unspecified Status: Chronic Assessment and Plan: she has had a cerebrovascular accident for which reason she is at a nursing facility. This impairs her ability to communicate somewhat GI Consult Note Consult date/time: 02/20/21 07:06 HPI: Maribell Kincaid is a 60 year old female was a group home resident. She was noted to have increasing confusion. She also had been complaining of abdominal pain and was vomiting. Somebody had also noticed that she was jaundiced. In the emergency room she was found to have elevated liver enzymes and CT scan shows changes of acute cholecystitis and also dilated bile duct. She is unable to verbalize to any great extent having had a cerebrovascular accident. She can answer questions if they are relatively simple. She does admit to abdominal pain in having had for 2 or 3 days. She denies prior history of liver disease or gallbladder disease. Review of Systems Review of Systems: All systems reviewed & are unremarkable except as noted in HPI and below PMFSH Past Medical History Medical History Anemia Cerebrovascular accident In 2015 and 2016, with residual right-sided weakness and expressive aphasia. Chronic venous insufficiency Current use of director long term care anticoagulation Dementia Cognitive dysfunction felt to be a result of her strokes. Diastolic congestive heart failure History of MRSA infection Hypertension Insulin dependent type 2 diabetes mellitus Hemoglobin A1c was 7.8% in May 2019. Morbid obesity Post-menopausal bleeding Endometrial curettage in January 2019 with benign pathology. Status post hysteroscopy with endometrial polypectomy in May 2019. Venous stasis ulcer Surgical History Surgical History History of dilation and curettage History of hysteroscopy (~05/2019) Benign endometrial polyp. Status post debridement Upper buttock wound with necrotizing infection in 2017. Family History Family History Grandparent Breast cancer Mother Carcinoma of colon Diabetes mellitus Hypertension Sibling Diabetes mellitus Sibling Diabetes mellitus Hypertension Sibling Diabetes mellitus Hypertension Father Diabetes mellitus Hypertension Social History Social History Social History: The patient lives at [facility]. She has been in group home since her stroke in 2016. No alcohol, tobacco, or drug use. Her brother, Mikey, is her healthcare power of divorce attorney. She is a full code. Smoking status: Unknown if ever smoked Alcohol intake: unknown Substance use: unknown Substance use type: unknown Gender identity (if verbalized by the patient): Female Spiritual care concerns: No Agree to blood products: Yes Meds Home Medications and Allergies Home Medications Medication Instructions Recorded Confirmed Type bumetanide 1 mg PO DAILY 02/01/19 02/20/21 History ergocalciferol (vitamin D2) 50,000 unit PO WEEKLY 02/01/19 02/20/21 History [Vitamin D2] fluoxetine 20 mg PO DAILY 02/01/19 02/20/21 History memantine 10 mg PO QAM 02/01/19 02/20/21 History metoprolol succinate 25 mg PO DAILY
[2021-02-20 07:14] LABS: Prealbumin 5.1 mg/dL (17.6-36.0)
[2021-02-20] MEDS: ENOXAPARIN 40 MG/0.4 ML SYRINGE SUB-Q (09:15)
--- NOTE | 2021-02-20 09:32 | PM.IMPN ---
Progress Note: A&P Assessment and Plan (1) Acute cholecystitis: Code(s): K81.0 - Acute cholecystitis Status: Acute Assessment and Plan: Patient is symptomatic with abdominal pain. Abdominal exam is challenging given severely obese body habitus. CT scan and RUQ ultrasound suggest acute cholecystitis as well as a dilated common bile duct. This in the setting of transaminitis is concerning for biliary obstruction. There is also a possibility that her leukocytosis and acute illness could be related to ascending cholangitis rather than cholecystitis alone. GI has been consulted and she is scheduled for an ERCP tomorrow. Continue broad-spectrum IV antibiotics, IV fluids, and analgesics, per surgery recommendation. Given the patient multiple comorbidities, she represent a high risk surgical risk candidate. We agree with the surgical advice to continue with the ERCP and place a percutaneous cholecystostomy tube in Radiology if necessary. (2) HFrEF (heart failure with reduced ejection fraction): Code(s): I50.20 - Unspecified systolic (congestive) heart failure Status: Acute Assessment and Plan: Patient carries a diagnosis of heart failure with reduced ejection fraction. She will be treated based on symptomatology. Continue bumetanide 1 mg p.o. daily, losartan 25 mg p.o. daily. (3) Chronic venous insufficiency: Code(s): I87.2 - Venous insufficiency (chronic) (peripheral) Status: Acute (4) Diastolic congestive heart failure: Code(s): I50.30 - Unspecified diastolic (congestive) heart failure Status: Acute (5) MONTRELL (acute kidney injury): Code(s): N17.9 - Acute kidney failure, unspecified Status: Acute Assessment and Plan: Acute nonoliguric kidney injury, likely related to acute illness. Admission creatinine was mildly elevated at 1.5 on admission. Creatinine is increasing at 2 today. Baseline creatinine is is unknown. Most recent outpatient creatinine was 1.1 as of May 2020. This is likely prerenal versus ischemic ATN in the setting of hypotension. Patient presented with a blood pressure of 98/70. Currently patient is hemodynamically stable with blood pressure in the 107/52-125/66 range. Hold blood pressure and cardioprotective medications for the time being. Send UA, urine lytes and perform a renal ultrasound. Monitor daily weight, intake and output. There is no recent contrast exposure. Avoid nephrotoxic medications. (6) Dementia: Code(s): F03.90 - Unspecified dementia without behavioral disturbance Status: Acute Assessment and Plan: Patient carries a diagnosis of CVA. 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 (7) CVA (cerebral vascular accident): Qualifiers: CVA mechanism: unspecified Qualified Code(s): I63.9 - Cerebral infarction, unspecified Code(s): I63.9 - Cerebral infarction, unspecified Status: Chronic Assessment and Plan: Head CT reveals old infarcts involving left palatal, occipital and temporal lobes and left hilum ribs. Mild nonspecific cerebral white matter disease likely represents chronic small vessel ischemic disease. Consult neurology. (8) Type 2 diabetes mellitus: Qualifiers: Diabetes mellitus senior living insulin use: with predatory animal exterminator use Diabetes mellitus complication status: with hyperglycemia Qualified Code(s): E11.65 - Type 2 diabetes mellitus with hyperglycemia; Z79.4 - long term care pharmacist (current) use of insulin Code(s): E11.9 - Type 2 diabetes mellitus without complications Status: Chronic Assessment and Plan: Diabetes is uncontrolled. Despite poor oral intake fasting blood glucose was 240 today. Accu-Cheks is 333 this afternoon. Check Accu-Chek every 6 hours. Continue insulin coverage and Lantus. Subjective Date/time seen: 02/20/21 09:32 Background:Patient is a 60-year-old female who presents the ER with reports of new o
--- NOTE | 2021-02-20 09:35 | PCOTNOTE ---
Attempted to see pt. for evaluation. Pt. has procedure with Dr. Santos at 10:45 am. Will follow-up this afternoon upon pt. return to room.
[2021-02-20 12:00] VITALS: PULSE 122; RESP 22; O2SAT 92
--- NOTE | 2021-02-20 12:05 | PM.CNGS ---
Assessment and Plan Assessment and plan (1) Acute cholecystitis: Code(s): K81.0 - Acute cholecystitis Status: Acute Assessment and Plan: CT scan and RUQ ultrasound suggest acute cholecystitis as well as a dilated common bile duct. This in the setting of transaminitis is concerning for biliary obstruction. There is also a possibility that her leukocytosis and acute illness could be related to ascending cholangitis rather than cholecystitis alone. GI has been consulted and she is scheduled for an ERCP tomorrow. Continue broad-spectrum IV antibiotics, IV fluids, and analgesics. I have discussed the case with Dr. Starks. With her multiple co-morbidities, the patient would be a high risk surgical candidate. At this time, we would recommend continuing with the ERCP and trying to plan for placement of a percutaneous cholecystostomy tube in Radiology if necessary. We will continue to follow along with serial abdominal exams and await the results of the ERCP tomorrow. Will repeat labs tomorrow. Thank you for allowing us to see the patient in consultation and we will continue to follow along with you. (2) Obstructive jaundice: Code(s): K83.1 - Obstruction of bile duct Status: Acute Assessment and Plan: The patient presented with elevated LFTs, jaundice, and leukocytosis. Consider ascending cholangitis. GI following and planning ERCP tomorrow. See plan above. (3) Sepsis: Qualifiers: Sepsis acute organ dysfunction status: unspecified Sepsis type: sepsis due to unspecified organism Qualified Code(s): A41.9 - Sepsis, unspecified organism Code(s): A41.9 - Sepsis, unspecified organism Status: Acute Assessment and Plan: Sepsis criteria met on admission with tachycardia, tachypnea, and leukocytosis in the setting of known infection. Secondary to acute cholecystitis versus ascending cholangitis. Blood cultures pending. WBC 30,000 today. Agree with continuing broad-spectrum IV antibiotics and cautious IV fluids. Trend labs. See plan above. (4) Current use of long term care phlebotomist anticoagulation: Code(s): Z79.01 - care home (current) use of anticoagulants Status: Acute Assessment and Plan: On Eliquis, which is currently held. We should continue to hold the Eliquis both for the ERCP tomorrow and also for possible cholecystostomy tube placement. I have asked nursing to call her shelter to confirm her last dose of Eliquis since the patient is unable to confirm this herself. (5) CVA (cerebral vascular accident): Qualifiers: CVA mechanism: unspecified Qualified Code(s): I63.9 - Cerebral infarction, unspecified Code(s): I63.9 - Cerebral infarction, unspecified Status: Chronic Assessment and Plan: Hx CVA with residual right-sided weakness and expressive aphasia. (6) Type 2 diabetes mellitus: Qualifiers: Diabetes mellitus usp insulin use: with long term care phlebotomist use Diabetes mellitus complication status: with hyperglycemia Qualified Code(s): E11.65 - Type 2 diabetes mellitus with hyperglycemia; Z79.4 - long term care phlebotomist (current) use of insulin Code(s): E11.9 - Type 2 diabetes mellitus without complications Status: Chronic (7) Diastolic congestive heart failure: Code(s): I50.30 - Unspecified diastolic (congestive) heart failure Status: Acute Additional Plan I have discussed the patient's case and plan of care with Dr. Starks. Thank you for allowing us to see the patient in consultation and we will continue to follow along with you. History of Present Illness Consult details Consult date: 02/20/21 Reason for consult: other (Acute cholecystitis, CBD dilatation, transaminitis) Requesting physician: Armand Art MD Narrative: This is a 60-year-old female with a history of CVA with residual right-sided weakness and expressive aphasia, IDDM, CHF, chronic oral anticoagulation, and multiple other medical problems. She was b
[2021-02-20 14:00] VITALS: BP 107/52; PULSE 117; RESP 14; TEMP 36.9; O2SAT 92
--- NOTE | 2021-02-20 14:39 | PCPTNOTE ---
Attempted PT evaluation this date, spoke with RN patient to have procedure tomorrow, will follow for therapy after procedure.
[2021-02-20] MEDS: SODIUM CHLORIDE 0.9% IV 1,000 ML 125 ML IV CONT (17:10)
[2021-02-20 18:20] LABS: Glucose Point of Care 333 mg/dl (65-105)
[2021-02-20] MEDS: INSULIN ASPART (*BKC) 100 UNITS/ML SUB-Q ×2 (19:53→23:42)
[2021-02-20 21:27] VITALS: BP 91/58; PULSE 124; RESP 22; TEMP 36.4; O2SAT 92
[2021-02-20 21:48] LABS: Add Urine Microscopic? YES; Appearance Urine Cloudy (Clear); Bacteria Urine 4+ /hpf; Bilirubin Urine Negative (Negative); Blood Urine 3+ (Negative); Color Urine Amber (Yellow); Glucose Urine UA Negative (Negative); Ketones Urine Negative (Negative); Leukocyte Esterase Ur 2+ LEU/UL (Negative); Mucus Urine Few /lpf; Nitrate Urine Negative (Negative); Protein Urine 2+ mg/dL (Negative); RBC Urine >75 /hpf (0-2); Specific Grav Ur 1.018 (1.001-1.035); Squamous Epithelial Cell Urine Few /hpf (Few); WBC Clumps Urine Present /HPF; WBC Urine >75 /hpf
[2021-02-20 22:00] LABS: Creatinine Urine 164.9 mg/dL; Urea Random Urine 411 MG/DL
[2021-02-20 22:21] LABS: Sodium Urine Random 30 meq/L
--- NOTE | 2021-02-20 22:28 | ECG_ITS ---
Measurements Intervals [place] Rate: 120 P: 50 OR: 153 QRS: 110 QRSD: 118 T: 41 QT: 426 QTc: 604 Interpretive Statements SINUS TACHYCARDIA RIGHT AXIS DEVIATION INCOMPLETE RIGHT BUNDLE BRANCH BLOCK BORDERLINE T WAVE ABNORMALITY- INFERIOR LEADS BASELINE WANDER- V1 ABNORMAL ECG Electronically Signed On 02-21-2021 6:34:13 BRUSH MACHINE SETTER by Cuong Sawant D.O.
[2021-02-20 22:36] LABS: Glucose Point of Care 322 mg/dl (65-105)
[2021-02-20 22:42] VITALS: BP 89/46; PULSE 122; RESP 22; TEMP 37.1; O2SAT 92
[2021-02-20 23:10] LABS: Microalbumin Urine Random > 1140.0 mg/L (0-16.7); Total Protein Urine Random 277 mg/dL
[2021-02-20] MEDS: SODIUM CHLORIDE 0.9% IV 1,000 ML 999 ML IV CONT (23:53)
[2021-02-21] VITALS (29 sets, daily range): BP systolic 66–128; BP diastolic 28–88; PULSE 102–118; RESP 22–32; TEMP 36.2–37.2; O2SAT 91–99
--- NOTE | 2021-02-21 | ECHO_ITS ---
Patient Info Name: Maribell Kincaid Age: 60 years : 1960 Gender: Female Ht: 67 in Wt: 303 lbs BSA: 2.63 m2 HR: 117 bpm BP: 110 / 56 mmHg Heart Rhythm: Tachycardia Technical Quality: Poor Exam Date: 02/21/2021 11:33 AM Exam Location: [facility] Card Pulmonary Patient Status: Inpatient Admit Date: 02/20/2021 Staff Ordering Physician: Bebeto Rider MD Senior Health Consultant: GENARO GUZMAN Attending Provider: Bebeto Rider MD Exam Type: CA echo doppler color flow Study Info Limited two-dimensional transthoracic echocardiogram is performed. Summary 1. Grossly normal left ventricular size and thickness. Grossly good left ventricular systolic function with estimated ejection fraction 55-60%. There may be some hypokinesis of the inferior wall but the left ventricle was difficult to visualize. Diastolic function is indeterminate. 2. No significant valve disease. 3. Unable to calculate pulmonary pressure with this study. 4. Highly technically difficult study; patient was combative and also refused IV definity contrast. In addition she was very tachycardic. 5. Rhythm indeterminate; tachycardia. Left Ventricle Left ventricular chamber dimension is normal. Left ventricular systolic function is normal, estimated at 55-60%. There is no increased left ventricular wall thickness. Left ventricular septal wall motion is normal. The left ventricular diastolic function is indeterminate. Right Ventricle Right ventricular chamber dimension is normal. Right ventricular systolic function is normal. Left Atria Left atrial chamber dimension is normal. Right Atria Right atrial chamber dimension is normal. Aortic Valve The aortic valve is trileaflet. There is mild aortic valve sclerosis. There is no aortic valve stenosis. There is no aortic valve regurgitation. Pulmonic Valve The pulmonic valve is normal. There is no pulmonic valve stenosis. There is no pulmonic regurgitation. Mitral Valve The mitral valve has normal leaflets. There is no mitral valve stenosis. There is trace mitral valve regurgitation. Tricuspid Valve The tricuspid valve leaflets are normal. There is no significant tricuspid valve stenosis. There is trace tricuspid valve regurgitation. No pulmonary hypertension, estimated pulmonary arterial systolic pressure is 15 mmHg. Pericardium/Pleural The pericardium appears normal. There is no pericardial effusion. Inferior Vena Cava Not well visualized inferior vena cava with >50% collapse upon inspiration consistent with Empty right atrial pressure, 10 mmHg. Aorta The aortic root size at the sinus of Valsalva is normal. The prox ascending aorta size is not well visualized. Left Ventricular Outflow Tract Name Value Normal LVOT 2D LVOT Diameter 2.3 cm LVOT Doppler LVOT Peak Gradient 7 mmHg LVOT Mean Gradient 3 mmHg LVOT VTI 17 cm LVOT VTI/AV VTI Ratio 1.3 LVOT Stroke Volume 73 ml LVOT CO 21.3 l/min
[2021-02-21 05:28] LABS: Basophils Percent Auto 0.1 % (0.2-1.2); Hematocrit 38.1 % (37.0-47.0); Hemoglobin 13.2 g/dL (12.0-15.0); Immature Granulocyte Absolute 0.23 K/mm3 (0.00-0.031); Immature Granulocyte Percent A 0.9 % (0-0.5); Lymphocytes Absolute Auto 0.78 K/mm3 (0.9-3.2); Lymphocytes Percent Auto 3.2 % (18.3-44.2); Mean Corpuscular HGB Conc 34.6 g/dl (32-36); Mean Corpuscular Hemoglobin 33.3 pg (26-34); Mean Corpuscular Volume 96.2 fl (80-100); Mean Platelet Volume 11.1 fl (7.4-10.4); Monocytes Absolute Auto 1.2 K/mm3 (0.1-0.6); Monocytes Percent Auto 4.7 % (2.6-8.5); Neutrophils Absolute Auto 22.1 K/mm3 (1.3-6.7); Neutrophils Percent Auto 91.1 % (45.5-73.1); Platelet Count Result 372 k/mm3 (150-375); Red Blood Count 3.96 M/mm3 (4.2-5.4); Red Cell Distribution Width 14.1 % (11.5-14.5); White Blood Count 24.3 K/mm3 (4.5-10.0)
[2021-02-21 05:54] LABS: Alanine Aminotransferase 310 U/L (4-35); Albumin Level 2.9 g/dL (3.5-5.1); Alkaline Phosphatase 733 U/L (38-126); Anion Gap 15 mmol/L (8-16); Bilirubin,Total 5.9 mg/dL (0.2-1.3); Blood Urea Nitrogen 46 mg/dL (7-17); Carbon Dioxide 17 mmol/L (22-30); Chloride 103 mmol/L (98-107); Estimated CRCL calculation 17 ml/min; Estimated Glomerular Filt Rate 9; Glucose 322 mg/dL (65-110); Potassium 4.5 mmol/L (3.4-5.0); Sodium 135 mmol/L (137-145)
[2021-02-21 06:02] LABS: Hemoglobin A1C 7.8 % (<5.7)
[2021-02-21] MEDS: SODIUM CHLORIDE 0.9% IV 1,000 ML 999 ML IV CONT ×3 (06:29→08:35)
--- NOTE | 2021-02-21 07:46 | ECG_ITS ---
Measurements Intervals [place] Rate: 111 P: 65 MI: 156 QRS: 115 QRSD: 115 T: -39 QT: 300 QTc: 408 Interpretive Statements SINUS TACHYCARDIA RIGHT AXIS DEVIATION INCOMPLETE RIGHT BUNDLE BRANCH BLOCK T WAVE ABNORMALITY IN INFERIOR LEADS- CONSIDER ISCHEMIA BASELINE ARTIFACT- AVF ABNORMAL ECG Electronically Signed On 02-21-2021 8:33:18 INSURANCE ASSISTANT by Cuong Sawant D.O.
--- NOTE | 2021-02-21 07:56 | PM.IMPN ---
Progress Note: A&P Assessment and Plan (1) Hypotension: Code(s): I95.9 - Hypotension, unspecified Status: Acute Assessment and Plan: Patient presents persistent hypotension despite a bolus of IV fluid overnight. Patient is currently being treated aggressively with 2 L normal saline IV boluses, serial abdominal examination, blood pressure measurements. Given body habitus, accurate blood pressure measurements have been challneging. Apparently she has responded to initial bolus with improvement of blood pressure to 100/50. The teacher visually impaired is being consulted for higher level of care. Send lactic acid level, troponin, blood culture, ABG. Perform stat EKG and portable chest x-ray. Perform continuous pulse ox monitoring. This is likely sepsis secondary to intra-abdominal infectious process due to previously diagnosed acute cholecystitis. Patient is already on appropriate IV antibiotics. Plan for US guided cholecystostomy tube when stable. Transfer to ICU. (2) Acute cholecystitis: Code(s): K81.0 - Acute cholecystitis Status: Acute Assessment and Plan: Patient is symptomatic with abdominal pain. Abdominal exam is challenging given severely obese body habitus. CT scan and RUQ ultrasound suggest acute cholecystitis as well as a dilated common bile duct. This in the setting of transaminitis is concerning for biliary obstruction. There is also a possibility that her leukocytosis and acute illness could be related to ascending cholangitis rather than cholecystitis alone. GI has been consulted and she is scheduled for an ERCP tomorrow. Continue broad-spectrum IV antibiotics, IV fluids, and analgesics, per surgery recommendation. Given the patient multiple comorbidities, she represent a high risk surgical risk candidate. We agree with the surgical advice to continue with the ERCP and place a percutaneous cholecystostomy tube in Radiology if necessary. (3) HFrEF (heart failure with reduced ejection fraction): Code(s): I50.20 - Unspecified systolic (congestive) heart failure Status: Acute Assessment and Plan: Patient carries a diagnosis of heart failure with reduced ejection fraction. She will be treated based on symptomatology. Continue bumetanide 1 mg p.o. daily, losartan 25 mg p.o. daily. (4) Chronic venous insufficiency: Code(s): I87.2 - Venous insufficiency (chronic) (peripheral) Status: Acute (5) Diastolic congestive heart failure: Code(s): I50.30 - Unspecified diastolic (congestive) heart failure Status: Acute (6) MONTRELL (acute kidney injury): Code(s): N17.9 - Acute kidney failure, unspecified Status: Acute Assessment and Plan: Acute nonoliguric kidney injury, likely related to acute illness. Admission creatinine was mildly elevated at 1.5 on admission. Creatinine is increasing at 2 today. Baseline creatinine is is unknown. Most recent outpatient creatinine was 1.1 as of May 2020. This is likely prerenal versus ischemic ATN in the setting of hypotension. Patient presented with a blood pressure of 98/70. Currently patient is hemodynamically stable with blood pressure in the 107/52-125/66 range. Hold blood pressure and cardioprotective medications for the time being. Send UA, urine lytes and perform a renal ultrasound. Monitor daily weight, intake and output. There is no recent contrast exposure. Avoid nephrotoxic medications. (7) Dementia: Code(s): F03.90 - Unspecified dementia without behavioral disturbance Status: Acute Assessment and Plan: Patient carries a diagnosis of CVA. 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 (8) CVA (cerebral vascular accident): Qualifiers: CVA mechanism: unspecified Qualified Code(s): I63.9 - Cerebral infarction, unspecified Code(s): I63.9 - Cerebral infarction, unspecified Status: Chronic Assessment and Plan: Head CT rev
[2021-02-21 08:20] LABS: Lactic Acid Reflex 2.6 mmol/L (0.7-2.1)
[2021-02-21 08:30] LABS: Aspartate Amino Transferase 683 U/L (14-36)
[2021-02-21 08:32] LABS: Troponin I 0.159 ng/mL (0.000-0.034)
[2021-02-21] MEDS: SODIUM BICARBONATE 8.4% 50 MEQ/50 ML SYRINGE 100 MEQ IV PUSH (08:34)
[2021-02-21] MEDS: NOREPINEPHRINE 8 MG/D5W 250 ML 8 MG/250 ML BAG 18.75 MG IV CONT (08:35)
[2021-02-21 08:36] LABS: Glucose Point of Care 266 mg/dl (65-105)
[2021-02-21 08:55] LABS: Alveolar/Arterial O2 Gradient 56.4 mmHg; Base Excess ABG -3.9 mEq/l (+/-2.0); Fractional Inspired Oxygen 21 %; HCO3 ABG 19.8 mEq/l (22.0-26.0); Oxygen Content ABG 16.4 %vol (16.0-22.0); Oxygen Saturation ABG 89.1 % (95.0-100.0); PCO2 ABG 32.3 mmHg (35.0-45.0); PO2 ABG 54.7 mmHg (80.0-100.0); Total Hemoglobin 13.3 g/dL (12.0-18.0); pH ABG 7.406 (7.350-7.450)
[2021-02-21 08:59] LABS: Oxyhemoglobin 87.8 % THb (90.0-100.0)
[2021-02-21 09:00] LABS: Device ROOM AIR; Modified Allen's Test Pass; Site Drawn RIGHT RADIAL
[2021-02-21] MEDS: SODIUM CHLORIDE 0.9% IV 1,000 ML 125 ML IV CONT (09:04)
[2021-02-21] MEDS: ENOXAPARIN 40 MG/0.4 ML SYRINGE SUB-Q (09:07)
--- NOTE | 2021-02-21 09:37 | P.CDI_ITS ---
CDI Query Clarification Request - 02/20 sepsis documented by surgery and 02/21 sepsis documented by hospitalist -02/19 glascow coma score was 14 and creatinine was 1.5 on arrival for SOFA 2 and respiratory rate was 34, GCS 14 and BP 98/70 in ED for qSOFA 3. Please clarify if sepsis was: * Present on arrival * Not present on arrival * Unable to determine <Brianne Childers RN - Last Filed: 02/21/21 09:51> Patient was hypotensive and tachycardic on the 1st day of my evaluation 02/20/2021. Has such patient was septic. She had at least 1 organ dysfunction with creatinine elevated at 1.5 above baseline. This qualifies her for sepsis. <Anabel Gaston MD - Last Filed: 02/22/21 19:27>
[2021-02-21] MEDS: SODIUM BICARBONATE 8.4% 150 MEQ in WATER, STERILE FOR INJECTION 950 ML IV CONT (09:48)
--- NOTE | 2021-02-21 10:39 | WPDCNINT ---
Assessment and Plan Assessment and plan (1) Septic shock: Code(s): A41.9 - Sepsis, unspecified organism; R65.21 - Severe sepsis with septic shock Status: Acute Assessment and Plan: Secondary to cholecystitis and UTI Patient was given 2 additional L of saline bolus Started on Levophed. Will add vasopressin and stress dose hydrocortisone Reviewed blood culture sent Emergent central venous catheter placed in right IJ (2) Current use of assisted anticoagulation: Code(s): Z79.01 - intermediate (current) use of anticoagulants Status: Acute Assessment and Plan: Eliquis is on hold (3) Obstructive jaundice: Code(s): K83.1 - Obstruction of bile duct Status: Acute Assessment and Plan: ERCP when hemodynamically stable (4) Acute cholecystitis: Code(s): K81.0 - Acute cholecystitis Status: Acute Assessment and Plan: Consulted IR for ultrasound-guided cholecystostomy placement Discussed with general surgery Continue empiric Zosyn (5) Urinary tract infection: Code(s): N39.0 - Urinary tract infection, site not specified Status: Acute Assessment and Plan: Zosyn should cover for UTI Urine culture is pending (6) MONTRELL (acute kidney injury): Code(s): N17.9 - Acute kidney failure, unspecified Status: Acute Assessment and Plan: Likely prerenal versus ATN secondary to sepsis Check CK level Monitor electrolytes urine output and creatinine CT did not show any hydronephrosis Consult nephrology IV fluid with bicarb due to metabolic acidosis (7) Elevated troponin: Code(s): R77.8 - Other specified abnormalities of plasma proteins Status: Acute Assessment and Plan: Likely secondary to septic shock and acute kidney injury EKG reviewed Check echo (8) Insulin dependent type 2 diabetes mellitus: Code(s): E11.9 - Type 2 diabetes mellitus without complications; 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 This critical care time included obtaining a history; examining the patient; pulse oximetry; ordering and review of studies; arranging urgent treatment with development of a management plan; evaluation of patient's response to treatment; frequent reassessment; and discussions with other providers. It was exclusive of separately billable procedures and treating other patients and teaching time. 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 She is from a senior care and was noted to have jaundice. 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 CT abdomen pelvis showed acute cholecystitis in her right upper quadrant and was noted to have elevated liver enzymes. General surgery and GI were consulted from the ER. She is planned for an ERCP today. I responded to a rapid response in patient's room for hypotension. Patient already received 2 L of saline bolus and blood pressure was still. Patient was not able to provide any further meaningful history and history was obtained from chart and physician signed. She did point towards her abdomen when asked if she was having any pain. At response ABG
--- NOTE | 2021-02-21 10:51 | P.PCNBED_ITS ---
Procedures Central Line Placement Right IJ: Central Line Date: 02/21/21 Central Line Time: 09:00 Discussed w/ the patient/family/POA,the placement of a central venous catheter, including its clinical necessity/indication & associated potential risks, benifits and alternatives.: Yes The patient/family/POA understand(s) and acknowledge(s) the need to proceed with central venous catheter insertion as an important element of the patient's clinical management.: Yes Consent: Consent was obtained from patient's son by phone Time Out Performed: Yes Patient Position: supine Patient placed on monitor/pulse ox: Yes Provider Prep: mask, sterile gown, sterile gloves, Max. sterile barrier precautions, cap and hand hygiene with conventional soap/water or alcohol based hand rub Local anesthesia used: lidocaine 1% Amount of anesthesia used (ml): 5 Sterile US Technique with sterile gel/sterile probe covers: Yes Central line lumen inserted: triple Depth of Insertion (cm): 16 Post Procedure: sutured in place, good blood return, all ports aspirated, flushed, capped, transparent dressing, hemostatic product and aseptic technique maintained throughout procedure Post procedure x-ray: tip of catheter in good position and no pneumothorax seen Patient tolerated procedure: other Complications: other Additional comments: Patient was confused encephalopathy and uncooperative and kept on moving her neck/head and kept on bringing her hand in the field. A certified nursing assistant he had to hold her hand and nurse had to hold her head to accomplish the procedure. On my 1st attempt while I was able to get a good flash before I could advance a guidewire patient moved her neck and head into needle being out of vein. On 2nd attempt her head was held firmly by the nurse and I was able to advance the guidewire without any difficulty.
[2021-02-21 10:57] LABS: Reflex Lactic Acid Yes or No Add Lactic
[2021-02-21 12:21] LABS: Lactic Acid Reflex 2.1 mmol/L (0.7-2.1)
[2021-02-21 12:42] LABS: Glucose Point of Care 274 mg/dl (65-105)
[2021-02-21] MEDS: HYDROCORTISONE SODIUM SUCCINATE 100 MG/2 ML VIAL IV PUSH ×2 (13:04→23:16)
[2021-02-21] MEDS: INSULIN ASPART (*BKC) 100 UNITS/ML SUB-Q ×2 (13:04→17:31)
--- NOTE | 2021-02-21 14:35 | PM.PNGS ---
Progress Note: A&P Assessment and Plan (1) Obstructive jaundice: Code(s): K83.1 - Obstruction of bile duct Status: Acute Assessment and Plan: Now she is 48 hours after the dose and more invasive procedures could be performed. She is getting low-dose Lovenox as a DVT preventive. As I was visiting her doctor from her from Radiology was placing a ultrasound-guided percutaneous drain in the gallbladder and sending off cultures from the gallbladder fluid. I think this is what is best for her at this time in view of her other comorbidities and problems. She also ever needs to have a ERCP to drain the bile duct and relieve her suspected ascending cholangitis. However today she is unstable enough on pressors that she may not be able to go to GI lab for the procedure. I have discussed this with Dr. Santos and if anesthesia approves he is willing to try to do that tomorrow morning 02/22/2021. (2) Acute cholecystitis: Code(s): K81.0 - Acute cholecystitis Status: Acute Assessment and Plan: Therefore, now she is 48 hours after the last dose of Eliquis more invasive procedures could be performed. As I was visiting her Dr. Rothman from Radiology was placing a ultrasound-guided percutaneous drain in the gallbladder and sending off cultures from the gallbladder fluid. I think this is what is best for her at this time in view of her other comorbidities and problems. She also needs to have a ERCP to drain the bile duct and relieve her suspected ascending cholangitis. However, today she is unstable enough on pressors that she may not be able to go to GI lab for the procedure. I have discussed this with Dr. Simeon Santos and if anesthesia approves he is willing to try to do that tomorrow morning 02/22/2021. (3) Septic shock: Code(s): A41.9 - Sepsis, unspecified organism; R65.21 - Severe sepsis with septic shock Status: Acute Assessment and Plan: see hazmat tanker driver note from today. 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 Patient is continuing to have a high glucose is even though not really receiving any significant nutrition (5) Hypotension: Code(s): I95.9 - Hypotension, unspecified Status: Acute (6) Current use of [facility] anticoagulation: Code(s): Z79.01 - [facility] (current) use of anticoagulants Status: Acute Assessment and Plan: off of Eliquis at this time and on prophylactic Lovenox daily. (7) Diastolic congestive heart failure: Code(s): I50.30 - Unspecified diastolic (congestive) heart failure Status: Acute (8) Urinary tract infection: Code(s): N39.0 - Urinary tract infection, site not specified Status: Acute Assessment and Plan: cultures pending from a clean-catch are not back yet but, Zosyn should cover this well. (9) Abnormal chest x-ray: Code(s): R93.89 - Abnormal findings on diagnostic imaging of other specified body structures Status: Acute Assessment and Plan: It appears from these studies that patient may also have pneumonia which would put her into possible multi organ failure. Subjective Subjective Date/Time Seen: 02/21/21 14:35 Patient seen in ICU bed 12 after she was transferred there because of low blood pressure this morning. I have discussed her care with Dr. abreu our hazmat tanker driver. He has placed a right IJ central line and start her on pressors because of hypotension probably related to sepsis. Our ability to intervene in the source of infection was limited by her anticoagulation. The nurses check last night and her [facility] Therefore now she is 48 hours after the dose and more invasive procedures could be performed. She is
[2021-02-21] MEDS: MORPHINE SULFATE (*CRX) 4 MG/ML INJ IV PUSH (14:40)
[2021-02-21] MEDS: VASOPRESSIN INJ 100 UNITS in DEXTROSE 5% 95 ML IV CONT (14:41)
--- NOTE | 2021-02-21 14:50 | WPDGIPROGNO ---
Progress Note: A&P Assessment and Plan (1) Septic shock: Code(s): A41.9 - Sepsis, unspecified organism; R65.21 - Severe sepsis with septic shock Status: Acute Assessment and Plan: Severe hypotension today,notresponsive initially to 2 L fluids. BP initially 66/44, now up to 121/66 Hopefully can be weanedfrom pressors (2) Obstructive jaundice: Code(s): K83.1 - Obstruction of bile duct Status: Acute Assessment and Plan: <del>In</del> <del>view</del> of marked leukocytosis, septic shock, , she clearly has suppurative cholangitis. ERCP needs to be done to releive obstruction as soon as possible, hopefully tomorrow (3) Acute cholecystitis: Code(s): K81.0 - Acute cholecystitis Status: Acute Assessment and Plan: percutaneous drain has been placed in GB Subjective Date/time seen: 02/21/21 14:50 She was scheduled for ERCP today but overnight her white blood count increased dramatically to 30,000. Then this morning she developed hypotension. A rapid response was called. She had been given 2 L of saline without significant e increased of her blood pressure. She subsequently had been moved to intensive care as been started on a Levophed drip. Central venous line was started. Because she has cholecystitis and suspected sepsis, surgery felt that a percutaneous cholecystostomy tube would be appropriate. She still of course needs ERCP as soon as feasible to help relieve her of cholangitis and biliary obstruction. In her current situation anesthesia was obviously not comfortable with proceeding with that procedure today Exam Const: General: ill appearing Nutritional Appearance: overweight GI: Inspection: obesity GI Palp: Yes abdominal tenderness ( upper abdomen) Auscultation: normal bowel sounds Objective Data Vital Signs Vital Signs: Vital Signs - 24 hr 02/20/21 21:27 02/20/21 22:42 02/21/21 01:59 Temperature 36.4 C L 37.1 C Pulse Rate 124 H 122 H Respiratory Rate 22 H 22 H Blood Pressure 91/58 L 89/46 L 94/42 L Pulse Oximetry 92 92 02/21/21 05:44 02/21/21 08:35 02/21/21 10:04 Temperature 36.2 C L Pulse Rate 113 H 102 H 118 H Respiratory Rate 22 H Blood Pressure 66/44 L 72/28 L 84/52 L Pulse Oximetry 91 02/21/21 10:38 02/21/21 10:52 02/21/21 10:58 Temperature Pulse Rate 118 H 117 H 117 H Respiratory Rate 32 H Blood Pressure 98/31 L Pulse Oximetry 95 02/21/21 12:00 02/21/21 12:46 02/21/21 14:00 Temperature 36.6 C Pulse Rate 115 H 114 H 113 H Respiratory Rate 27 H 24 H Blood Pressure 102/62 110/56 L 121/66 Pulse Oximetry 99 95 02/21/21 14:41 02/21/21 14:42 Temperature Pulse Rate 113 H 112 H Respiratory Rate Blood Pressure 121/66 121/66 Pulse Oximetry Intake/Output Intake/Output: Intake & Output 02/18/21 02/19/21 02/20/21 02/21/21 23:59 23:59 23:59 23:59 Intake Total 1000 1200 2350 Output Total 500 250 Balance 0657 592 1789 Meds/Results Medications: Active Medications Generic Name Dose Route Start Last Admin Trade Name Freq PRN Reason Stop Dose Admin Dextrose 12.5 gm 02/21/21 08:13 Dextrose 50% 25 Gm/50 Ml Syringe IV PUSH PRN PRN Hypoglycemia Protocol Enoxaparin Sodium 40 mg 02/20/21 09:00 02/21/21 09:07 Enoxaparin 40 Mg/0.4 Ml Syringe SUB-Q 40 mg DAILY SEBLE Administration Glucagon 1 mg 02/21/21 08:13 Glucagon For Inj 1 Mg Vial IM PRN PRN Hypoglycemia Protocol Glucose 15 gm 02/21/21 08:13 Glucose Oral Gel 15 Gm Of Glucse In 37.5 Gm Tube PO PRN PRN Hypoglycemia Protocol Hydrocortisone Sodium Succinate 100 mg 02/21/21 14:00 02/21/21 13:04 Hydrocortisone Sodium Succinate 100 Mg/2 Ml Vial IV PUSH 100 mg Q8HR SEBLE Administration Piperacillin/Tazobactam/Dextrose 3.375 gm in 50 mls @ 100 mls/hr 02/20/21 05:00 02/21/21 13:06 Zosyn 3.375 Gm/D5w 50ml Pm IVPB Infused Q6H SEBLE Infusion Norepinephrine Marisela
[2021-02-21 15:45] LABS: Anion Gap 11 mmol/L (8-16); Blood Urea Nitrogen 54 mg/dL (7-17); Calcium 7.8 mg/dL (8.4-10.2); Carbon Dioxide 24 mmol/L (22-30); Chloride 99 mmol/L (98-107); Estimated CRCL calculation 15 ml/min; Estimated Glomerular Filt Rate 8; Glucose 318 mg/dL (65-110); Potassium 4.2 mmol/L (3.4-5.0); Sodium 134 mmol/L (137-145)
[2021-02-21] MEDS: SODIUM CHLORIDE 0.9% IV 1,000 ML 150 ML IV CONT ×2 (16:01→23:16)
[2021-02-21 17:24] LABS: Glucose Point of Care 250 mg/dl (65-105)
[2021-02-21] MEDS: CENTRAL LINE FLUSH 10 ML IV PUSH ×2 (17:32→23:19)
[2021-02-21] MEDS: NOREPINEPHRINE 8 MG/D5W 250 ML 8 MG/250 ML BAG 11.25 MG IV CONT (18:34)
[2021-02-22] VITALS (26 sets, daily range): BP systolic 76–115; BP diastolic 43–77; PULSE 111–119; RESP 25–40; TEMP 36.6–37.3; O2SAT 91–96; BMI 47.3
[2021-02-22 00:56] LABS: Glucose Point of Care 247 mg/dl (65-105)
[2021-02-22] MEDS: INSULIN ASPART (*BKC) 100 UNITS/ML SUB-Q ×6 (00:56→20:52)
[2021-02-22] MEDS: CENTRAL LINE FLUSH 10 ML IV PUSH ×4 (05:08→20:07)
[2021-02-22] MEDS: HYDROCORTISONE SODIUM SUCCINATE 100 MG/2 ML VIAL IV PUSH ×3 (05:09→20:13)
[2021-02-22 05:27] LABS: Hematocrit 34.4 % (37.0-47.0); Hemoglobin 11.7 g/dL (12.0-15.0); Mean Corpuscular Hemoglobin 32.6 pg (26-34); Mean Corpuscular Volume 95.8 fl (80-100); Mean Platelet Volume 10.2 fl (7.4-10.4); Platelet Count Result 389 k/mm3 (150-375); Red Blood Count 3.59 M/mm3 (4.2-5.4); Red Cell Distribution Width 14.2 % (11.5-14.5); White Blood Count 19.5 K/mm3 (4.5-10.0)
[2021-02-22 06:38] LABS: Glucose Point of Care 301 mg/dl (65-105)
[2021-02-22] MEDS: SODIUM CHLORIDE 0.9% IV 1,000 ML 150 ML IV CONT (06:39)
[2021-02-22 06:48] LABS: Alanine Aminotransferase 556 U/L (4-35); Albumin Level 2.8 g/dL (3.5-5.1); Alkaline Phosphatase 1008 U/L (38-126); Anion Gap 14 mmol/L (8-16); Bilirubin,Total 6.8 mg/dL (0.2-1.3); Blood Urea Nitrogen 67 mg/dL (7-17); Calcium 7.4 mg/dL (8.4-10.2); Carbon Dioxide 20 mmol/L (22-30); Chloride 102 mmol/L (98-107); Estimated CRCL calculation 12 ml/min; Estimated Glomerular Filt Rate 6; Glucose 363 mg/dL (65-110); Magnesium 2.3 mg/dL (1.6-2.3); Potassium 4.6 mmol/L (3.4-5.0); Sodium 136 mmol/L (137-145)
[2021-02-22] MEDS: ENOXAPARIN 40 MG/0.4 ML SYRINGE SUB-Q (08:10)
[2021-02-22 08:44] LABS: Glucose Point of Care 319 mg/dl (65-105)
[2021-02-22] MEDS: INSULIN GLARGINE (*BKC) 100 UNITS/ML 30 UNITS SUB-Q (08:51)
[2021-02-22] MEDS: SODIUM BICARBONATE 8.4% 150 MEQ in WATER, STERILE FOR INJECTION 950 ML 75 MEQ IV CONT (09:14)
[2021-02-22 09:44] LABS: Aspartate Amino Transferase 1359 U/L (14-36)
--- NOTE | 2021-02-22 09:50 | PM.PNGS ---
Progress Note: A&P Assessment and Plan (1) Obstructive jaundice: Code(s): K83.1 - Obstruction of bile duct Status: Acute Assessment and Plan: Now she is more than 48 hours after the last dose of Eliquis and more invasive procedures could be performed. She is getting low-dose Lovenox as a DVT preventive. She also needs to have an ERCP to drain the bile duct and relieve her suspected ascending cholangitis. However today she is unstable enough on pressors that she may not be able to go to GI lab for the procedure. I have discussed this with Dr. Becerra and if anesthesia approves he is willing to even wean her from the ventif anesthesia needed to intubate her for the procedure. (2) Acute cholecystitis: Code(s): K81.0 - Acute cholecystitis Status: Acute Assessment and Plan: Now she is more than 48 hours after the last dose of Eliquis, so more invasive procedures could be performed. Dr. Rothman from Radiology placed an ultrasound-guided percutaneous drain in the gallbladder on 02/21 and sent off cultures from the gallbladder fluid. I think this is what is best for her at this time in view of her other comorbidities and problems. She also needs to have a ERCP to drain the bile duct and relieve her suspected ascending cholangitis. However, today she is unstable enough on pressors that she may not be able to go to GI lab for the procedure. (3) Septic shock: Code(s): A41.9 - Sepsis, unspecified organism; R65.21 - Severe sepsis with septic shock Status: Acute Assessment and Plan: see case folder note from today. (4) Insulin dependent type 2 diabetes mellitus: Code(s): E11.9 - Type 2 diabetes mellitus without complications; Z79.4 - [facility] (current) use of insulin Status: Acute Assessment and Plan: As per primary service. 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 (7) Diastolic congestive heart failure: Code(s): I50.30 - Unspecified diastolic (congestive) heart failure Status: Acute (8) Urinary tract infection: Code(s): N39.0 - Urinary tract infection, site not specified Status: Acute Assessment and Plan: The final cultures are pending from a clean-catch are not back yet but the ID is complete showing a Klebsiella sp, Marlena should cover this well. (9) Abnormal chest x-ray: Code(s): R93.89 - Abnormal findings on diagnostic imaging of other specified body structures Status: Acute Assessment and Plan: It appears from these studies that patient may also have pneumonia which would put her into possible multi organ failure. Additional Plan Thank you for allowing us to see the patient in consultation and we will continue to follow along with you. Dr. Elam covering this weekend Subjective Subjective Date/Time Seen: 02/22/21 08:50 Patient being turned by the nurses when I came in the room. They informed me that she has some pressure sores on one of her heels and the other on the sacral area. There is superficial skin breakdown with bruising and evidence of possible soft tissue injury in the area of the sacrum. Patient is now on a bariatric air bed. Patient still on pressors but not as much as yesterday. She is breathing on her own and complains of pain with turning. Nurses report there is good amount of dark brown drainage from the cholecystostomy tube that was placed yesterday. Dr. Avalos informed me that they are not planning ERCP today but possibly tomorrow trying to get her off of pressors before taking her to the GI lab. Clotilde
--- NOTE | 2021-02-22 10:49 | WPDINTPN ---
Progress Note: A&P Assessment and Plan (1) Septic shock: Code(s): A41.9 - Sepsis, unspecified organism; R65.21 - Severe sepsis with septic shock Status: Acute Assessment and Plan: Secondary to cholecystitis, cholangitis and UTI Patient was given 4 L of saline bolus on presentation and started on IV fluids. 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 Santos today regarding timing of ERCP. He wants to wait another day due to patient being on vasopressor and also the fact that she had received DVT prophylaxis dose of Lovenox today. He plans to do ERCP over next day or 2 Case also discussed with General surgery who recommend continuing consonant conservative management until ERCP is done (4) Acute cholecystitis: Code(s): K81.0 - Acute cholecystitis Status: Acute Assessment and Plan: Status post ultrasound-guided cholecystostomy placement Discussed with general surgery who are managing drain at this time Continue empiric Zosyn Culture sent and pending (5) Urinary tract infection: Code(s): N39.0 - Urinary tract infection, site not specified Status: Acute Assessment and Plan: Zosyn should cover for UTI Urine culture is pending (6) MONTRELL (acute kidney injury): Code(s): N17.9 - Acute kidney failure, unspecified Status: Acute Assessment and Plan: Likely prerenal which may have progressed to ATN secondary to sepsis Creatinine continues to worsen and urine output is poor Monitor electrolytes urine output and creatinine CT did not show any hydronephrosis Consult nephrology IV fluid with bicarb due to metabolic acidosis May need hemodialysis. (7) Elevated troponin: Code(s): R77.8 - Other specified abnormalities of plasma proteins Status: Acute Assessment and Plan: Likely secondary to septic shock and acute kidney injury EKG reviewed Reviewed echo Summary 1. Grossly normal left ventricular size and thickness. Grossly good left ventricular systolic function with estimated ejection fraction 55-60%. Theremay be some hypokinesis of the inferior wall but the left ventricle was difficult to visualize. Diastolic function is indeterminate. 2. No significant valve disease. 3. Unable to calculate pulmonary pressure with this study. 4. Highly technically difficult study; patient was combative and alsorefused IV definity contrast. In addition she was very tachycardic. 5. Rhythm indeterminate; tachycardia. (8) Insulin dependent type 2 diabetes mellitus: Code(s): E11.9 - Type 2 diabetes mellitus without complications; Z79.4 - skilled nursing (current) use of insulin Status: Acute Assessment and Plan: NPO, Lantus and sliding scale insulin at this time (9) Encephalopathy: Code(s): G93.40 - Encephalopathy, unspecified Status: Acute Assessment and Plan: Likely metabolic encephalopathy patient has baseline dementia and recent history of stroke. CT head on presentation showed old infarcts and cerebrovascular disease Monitor and avoid sedatives Additional Plan DVT prophylaxis -SCDs for now, she did receive Lovenox today but is on hold for now Nutrition -NPO Code Status - Full Code Total Critical Care Time - 32 minutes except separately billed procedures Due to a high probability of clinically significant, life threatening deterioration, th
[2021-02-22 11:40] LABS: Glucose Point of Care 305 mg/dl (65-105)
--- NOTE | 2021-02-22 12:01 | PM.CNNEP ---
Assessment and Plan Assessment and plan (1) MONTRELL (acute kidney injury): Code(s): N17.9 - Acute kidney failure, unspecified Status: Acute Assessment and Plan: The patient has acute kidney injury. she may have an element of chronic kidney disease from her diabetes as she does have lots of protein in the urine. But functionally her creatinine was okay before this. Renal sonogram is normal. Urinalysis shows red cells and white cells. Urine electrolytes are pre renal Most likely she has acute kidney injury from pre renal azotemia due to 3rd spacing from sepsis but also may have ATN because of the severity of her illness and need for pressors. She could have rhabdomyolysis as well. Will check a CPK renal ultrasound rules out obstruction glomerulonephritis and interstitial nephritis are unlikely in this clinical scenario I agree with holding off on more IV fluids. She has some swelling and more fluid is just going to make that worse. She is on pressors which will help support her blood pressure. I discussed with Dr. Becerra who says that clinically she looks a lot better than she did yesterday since they put the cholecystostomy tube in. Since she is on antibiotics and her gallbladder is drained then perhaps her sepsis will improve and her renal function will improve. If not she will need dialysis eventually. (2) Acute cholecystitis: Code(s): K81.0 - Acute cholecystitis Status: Acute Assessment and Plan: The patient has a cholecystostomy tube in. She is on antibiotic. She is going to get an ERCP at some point (3) Encephalopathy: Code(s): G93.40 - Encephalopathy, unspecified Status: Acute Assessment and Plan: this is most likely from her sepsis. Eventually uremia may set in but her BUN is only in the 60s right now. (4) Septic shock: Code(s): A41.9 - Sepsis, unspecified organism; R65.21 - Severe sepsis with septic shock Status: Acute Assessment and Plan: The patient is on pressors and antibiotics. (5) Insulin dependent type 2 diabetes mellitus: Code(s): E11.9 - Type 2 diabetes mellitus without complications; Z79.4 - senior living (current) use of insulin Status: Acute Assessment and Plan: The patient is on Accu-Cheks and sliding-scale insulin History of Present Illness Reason for Consult Consult date: 02/22/21 Chief Complaint Chief complaint: Acute Cholecystitis History of Present Illness Narrative: Radhames Reyes is an unfortunate 60-year-old lady who has multiple medical problems including diabetes, morbid obesity, hyperlipidemia, stroke, diastolic dysfunction, hypertension, chronic edema, venous stasis ulcer, chronic anticoagulation, and anemia. The patient came into the hospital with confusion. She also had nausea vomiting and abdominal pain. She was evaluated in the emergency room and found to have acute cholecystitis. Surgery and GI were consulted. The plan was to do EGD to remove stones and then surgery to remove the gallbladder however the patient deteriorated hemodynamically and moved to the ICU. Currently the patient is on IV fluids, vasopressin, and norepinephrine. Because of the deterioration, the ERCP was delayed and is planned for tomorrow. The patient normally has a normal creatinine. On admission her creatinine was 1.5 and since then has risen gradually to 6.8 today in spite of IV fluids and signs of fluid overload. The patient cannot give a history. She is not on any nephrotoxic medications. She was on metformin on admission but this was discontinued. Her lactic acid level has been fine. Notably she did not receive any contrast with that CT scan she had on admission. Review of Systems Review of Systems: ROS unobtainable: Yes unobtainable due to medical condition PMFSH Past Medical History Medical History Anemia Cerebrovascular acc
[2021-02-22 13:34] LABS: Creatine Kinase 4982 U/L (30-135)
[2021-02-22] MEDS: NOREPINEPHRINE 8 MG/D5W 250 ML 8 MG/250 ML BAG 9.38 MG IV CONT (13:53)
[2021-02-22] MEDS: BUMETANIDE INJ 1 MG/4 ML VIAL 2 MG IV PUSH ×2 (14:35→20:14)
[2021-02-22 16:17] LABS: Glucose Point of Care 370 mg/dl (65-105)
--- NOTE | 2021-02-22 16:38 | WPDGIPROGNO ---
Progress Note: A&P Assessment and Plan (1) Septic shock: Code(s): A41.9 - Sepsis, unspecified organism; R65.21 - Severe sepsis with septic shock Status: Acute Assessment and Plan: Continue Levophed, vasopressin and stress dose hydrocortisone blood culture sent and are pending Emergent central venous catheter placed in right IJ on presentation to ICU Lactic acid level has normalized opefully can be weanedfrom pressors (2) Obstructive jaundice: Code(s): K83.1 - Obstruction of bile duct Status: Acute Assessment and Plan: <del>In</del> <del>view</del>of marked leukocytosis, septic shock, , she clearly has suppurative cholangitis. ERCP needs to be done to releive obstruction as soon as possible, hopefully in the next day or 2. However, having her gallbladder drained at least with the catheter, should help to some extent until she can have a safe ERCP (3) Acute cholecystitis: Code(s): K81.0 - Acute cholecystitis Status: Acute Assessment and Plan: percutaneous drain has been placed in GB likely cholecystectomy sometime in the future Additional Plan we will have to take it day-to-day as to when we can perform her ERCP safely. Obviously this is Anesthesiology's call. with less staff on the weekends they would prefer it be done Thursday. I will restart her Lovenox for now Subjective Date/time seen: 02/22/21 16:38 the patient remains hypotensive even with pressors. Fortunately her white blood count is coming down indicating her sepsis is responding somewhat to antibiotics. Anesthesia clearly does not want to attempt having a large patient like this in the prone position with unstable blood pressure, therefore ERCP cannot be done until she is off pressors. Exam Const: General: no acute distress and ill appearing Nutritional Appearance: obese and overweight Limitations: language barrier ( Some expressive aphasia) Resp: Auscultation: clear to auscultation bilaterally GI: Inspection: obesity GI Palp: Yes abdominal tenderness ( Tender throughout, especially upper abdomen) Auscultation: normal bowel sounds Objective Data Vital Signs Vital Signs: Vital Signs - 24 hr 02/21/21 16:45 02/21/21 17:00 02/21/21 17:32 Temperature Pulse Rate 115 H 115 H 117 H Respiratory Rate Blood Pressure 116/62 111/53 L 115/65 Pulse Oximetry 02/21/21 18:00 02/21/21 18:10 02/21/21 18:34 Temperature Pulse Rate 115 H 117 H 116 H Respiratory Rate 29 H Blood Pressure 112/64 112/64 93/62 L Pulse Oximetry 96 02/21/21 20:00 02/21/21 22:00 02/22/21 00:00 Temperature 37.2 C 37.3 C Pulse Rate 116 H 117 H 115 H Respiratory Rate 28 H 30 H 30 H Blood Pressure 105/54 L 105/54 L 101/53 L Pulse Oximetry 96 94 95 02/22/21 02:00 02/22/21 04:00 02/22/21 05:26 Temperature 37.2 C Pulse Rate 114 H 111 H 116 H Respiratory Rate 28 H 26 H Blood Pressure 106/54 L 92/58 L Pulse Oximetry 94 94 02/22/21 06:00 02/22/21 08:00 02/22/21 08:27 Temperature 37.1 C Pulse Rate 115 H 115 H 119 H Respiratory Rate 30 H 34 H Blood Pressure 107/59 L 106/73 106/73 Pulse Oximetry 95 92 02/22/21 09:16 02/22/21 09:34 02/22/21 10:00 Temperature Pulse Rate 116 H 117 H 117 H Respiratory Rate 35 H Blood Pressure 85/58 L 76/43 L 93/66 L Pulse Oximetry 91 02/22/21 11:30 02/22/21 12:00 02/22/21 12:06 Temperature 37.2 C Pulse Rate 113 H 114 H 114 H Respiratory Rate 33 H 29 H 40 H Blood Pressure 104/59 L Pulse Oximetry 92 94 94 02/22/21 12:10 02/22/21 13:50 02/22/21 13:53 Temperature Pulse Rate 114 H 114 H 116 H Respiratory Rate Blood Pressure 104/59 L 115/77 Pulse Oximetry 02/22/21 13:56 02/22/21 14:00 Temperature Pulse Rate 116 H 114 H Respiratory Rate 26 H Blood Pressure 115/77 108/72 Pulse Oximetry 95 Intake/Output Intake/Output: Intake & Output 02/19/21 02/20/21 02/21/21 02/22/21 23:59 23:59 23:59 23:59 Intake Total 1
[2021-02-22 20:33] LABS: Glucose Point of Care 302 mg/dl (65-105)
[2021-02-23] VITALS (30 sets, daily range): BP systolic 62–117; BP diastolic 34–68; PULSE 92–116; RESP 20–44; TEMP 36.6–39.1; O2SAT 94–99
[2021-02-23 00:06] LABS: Glucose Point of Care 283 mg/dl (65-105)
[2021-02-23] MEDS: INSULIN ASPART (*BKC) 100 UNITS/ML SUB-Q ×6 (00:30→21:06)
[2021-02-23] MEDS: SODIUM BICARBONATE 8.4% 150 MEQ in WATER, STERILE FOR INJECTION 950 ML 75 MEQ IV CONT (00:30)
[2021-02-23 04:44] LABS: Glucose Point of Care 279 mg/dl (65-105)
[2021-02-23] MEDS: HYDROCORTISONE SODIUM SUCCINATE 100 MG/2 ML VIAL IV PUSH ×3 (04:59→21:06)
[2021-02-23] MEDS: CENTRAL LINE FLUSH 10 ML IV PUSH ×4 (05:00→20:38)
[2021-02-23 05:11] LABS: Hematocrit 33.4 % (37.0-47.0); Hemoglobin 11.6 g/dL (12.0-15.0); Mean Corpuscular HGB Conc 34.7 g/dl (32-36); Mean Corpuscular Volume 94.9 fl (80-100); Mean Platelet Volume 10.5 fl (7.4-10.4); Platelet Count Result 339 k/mm3 (150-375); Red Blood Count 3.52 M/mm3 (4.2-5.4); White Blood Count 18.2 K/mm3 (4.5-10.0)
[2021-02-23 05:28] LABS: Albumin Level 2.8 g/dL (3.5-5.1); Alkaline Phosphatase 1109 U/L (38-126); Anion Gap 13 mmol/L (8-16); Bilirubin,Total 7.6 mg/dL (0.2-1.3); Blood Urea Nitrogen 93 mg/dL (7-17); Calcium 7.6 mg/dL (8.4-10.2); Carbon Dioxide 24 mmol/L (22-30); Chloride 99 mmol/L (98-107); Glucose 324 mg/dL (65-110); Magnesium 2.4 mg/dL (1.6-2.3); Phosphorus 2.8 mg/dL (2.5-4.5); Potassium 4.8 mmol/L (3.4-5.0); Sodium 136 mmol/L (137-145)
[2021-02-23 05:41] LABS: Estimated CRCL calculation 10 ml/min; Estimated Glomerular Filt Rate 5
[2021-02-23 05:43] LABS: Alanine Aminotransferase 835 U/L (4-35)
[2021-02-23 06:32] LABS: Aspartate Amino Transferase 2810 U/L (14-36)
[2021-02-23] MEDS: INSULIN GLARGINE (*BKC) 100 UNITS/ML 30 UNITS SUB-Q (08:03)
[2021-02-23 08:19] LABS: Alveolar/Arterial O2 Gradient 155.3 mmHg; Base Excess ABG -0.4 mEq/l (+/-2.0); Fractional Inspired Oxygen 40 %; HCO3 ABG 22.9 mEq/l (22.0-26.0); Oxygen Content ABG 17.2 %vol (16.0-22.0); Oxygen Saturation ABG 97.4 % (95.0-100.0); Oxyhemoglobin 95.6 % THb (90.0-100.0); PCO2 ABG 33.1 mmHg (35.0-45.0); PO2 ABG 91.8 mmHg (80.0-100.0); Total Hemoglobin 12.7 g/dL (12.0-18.0); pH ABG 7.457 (7.350-7.450)
[2021-02-23 08:20] LABS: Device NASAL CANNULA; Site Drawn RIGHT FEMORAL
[2021-02-23 08:48] LABS: Glucose Point of Care 250 mg/dl (65-105)
--- NOTE | 2021-02-23 09:28 | WPDINTPN ---
Progress Note: A&P Assessment and Plan (1) Septic shock: Code(s): A41.9 - Sepsis, unspecified organism; R65.21 - Severe sepsis with septic shock Status: Acute Assessment and Plan: Secondary to cholecystitis, cholangitis and UTI Patient was given 4 L of saline bolus on presentation and started on IV fluids. Will decrease IV fluid rate at this time Continue Levophed, vasopressin and stress dose hydrocortisone blood culture sent and are pending Emergent central venous catheter placed in right IJ on presentation to ICU Lactic acid level has normalized (2) Current use of [facility] anticoagulation: Code(s): Z79.01 - development architect (current) use of anticoagulants Status: Acute Assessment and Plan: Eliquis is on hold DVT prophylaxis Lovenox has been held for possible ERCP tomorrow (3) Obstructive jaundice: Code(s): K83.1 - Obstruction of bile duct Status: Acute Assessment and Plan: I spoke to Dr. Santos yesterday regarding timing of ERCP. He wanted to wait another day due to patient being on vasopressor and also the fact that she had received DVT prophylaxis dose of Lovenox yesterday. He planned to do ERCP over next day or 2 DVT prophylaxis Lovenox on hold Case also discussed with General surgery who recommend continuing conservative management until ERCP is done (4) Acute cholecystitis: Code(s): K81.0 - Acute cholecystitis Status: Acute Assessment and Plan: Status post ultrasound-guided cholecystostomy placement Discussed with general surgery who are managing drain at this time Continue empiric antibiotics Culture sent and pending (5) Urinary tract infection: Code(s): N39.0 - Urinary tract infection, site not specified Status: Acute Assessment and Plan: Zosyn should cover for UTI Urine culture is growing Klebsiella which intermediate to Zosyn. Switch antibiotic cefepime and Flagyl (6) MONTRELL (acute kidney injury): Code(s): N17.9 - Acute kidney failure, unspecified Status: Acute Assessment and Plan: Likely prerenal which may have progressed to ATN secondary to sepsis Creatinine continues to worsen and urine output is poor Monitor electrolytes urine output and creatinine CT did not show any hydronephrosis Nephrology is following IV fluid with bicarb due to metabolic acidosis which will be decreased Patient will likely need hemodialysis.. I have spoken to patient's brother was patient's POA regarding hemodialysis and he is going to discuss with other siblings before making a decision whether patient would want hemodialysis at this stage of her life. (7) Elevated troponin: Code(s): R77.8 - Other specified abnormalities of plasma proteins Status: Acute Assessment and Plan: Likely secondary to septic shock and acute kidney injury EKG reviewed Reviewed echo Summary 1. Grossly normal left ventricular size and thickness. Grossly good left ventricular systolic function with estimated ejection fraction 55-60%. Theremay be some hypokinesis of the inferior wall but the left ventricle was difficult to visualize. Diastolic function is indeterminate. 2. No significant valve disease. 3. Unable to calculate pulmonary pressure with this study. 4. Highly technically difficult study; patient was combative and alsorefused IV definity contrast. In addition she was very tachycardic. 5. Rhythm indeterminate; tachycardia. (8) Insulin dependent type 2 diabetes mellitus: Code(s): E11.9 - Type 2 diabetes mellitus without complications; Z79.4 - shelter (current) use of insulin Status: Acute Assessment and Plan: NPO, Lantus and sliding scale insulin at this time (9) Encephalopathy: Code(s): G93.40 - Encephalopathy, unspecified Status: Acute Assessment and Plan: Likely metabolic encephalopathy patient has baseline dementia and recent history of stroke. Now also has sepsis and uremia
--- NOTE | 2021-02-23 10:05 | PM.PNNEP ---
Progress Note: A&P Assessment and Plan (1) MONTRELL (acute kidney injury): Code(s): N17.9 - Acute kidney failure, unspecified Status: Acute Assessment and Plan: The patient has acute kidney injury. she may have an element of chronic kidney disease from her diabetes as she does have lots of protein in the urine; however, functionally of her creatinine was okay before this acute illness Evaluation to date: renal sonogram is normal urinalysis shows red cells and white cells urine electrolytes are pre renal most likely she has acute kidney injury from pre renal azotemia due to 3rd spacing from sepsis but also may have ATN because of the severity of her illness and need for pressors. suspect she may require [facility]/dialysis in the next 24 - 48 hours but family not sure they want to pursue such an intervention at this time...will await their final decision... (2) Acute cholecystitis: Code(s): K81.0 - Acute cholecystitis Status: Acute Assessment and Plan: s/p cholecystostomy tube placement on antibiotics possible ERCP at some point GI and Surgery following (3) Encephalopathy: Code(s): G93.40 - Encephalopathy, unspecified Status: Acute Assessment and Plan: likely from her sepsis uremia may be playing a role as well (4) Septic shock: Code(s): A41.9 - Sepsis, unspecified organism; R65.21 - Severe sepsis with septic shock Status: Acute Assessment and Plan: due to cholecystitis on pressor support and antibiotics follow culture data (5) Insulin dependent type 2 diabetes mellitus: Code(s): E11.9 - Type 2 diabetes mellitus without complications; Z79.4 - detention (current) use of insulin Status: Acute Assessment and Plan: follow Accu-Cheks on sliding-scale insulin Discussed case with Dr. Becerra. Will continue to follow. Subjective Date/time seen: 02/23/21 10:05 Chart reviewed; febrile overnight and confusion/drowsiness persists; remain on vasopressor therapy to maintain MAP; renal function worsening with associated decline in urine output noted. Exam Narrative: General: ill appearing female; confused and drowsy Heart: normal S1 and S2; no rub Lungs: clear to auscultation Abdomen: tenderness to palpation in right upper quadrant; drain in place with dark bloody/bilious output Extremities: no cyanosis or clubbing; no edema Skin: warm and dry Objective Data Vital Signs Vital Signs: Vital Signs Temp Pulse Resp BP Pulse Ox 02/23/21 10:00 38.1 C H 96 26 H 102/52 L 98 02/23/21 09:52 99 02/23/21 08:00 37.8 C H 105 H 27 H 109/58 L 96 02/23/21 07:04 109 H 87/51 L 02/23/21 06:37 78/47 L 02/23/21 06:10 113 H 100/59 L 02/23/21 06:00 112 H 35 H 100/59 L 94 02/23/21 05:00 113 H 111/64 02/23/21 04:00 39.1 C H 116 H 44 H 107/66 94 02/23/21 03:55 116 H 30 H 94 02/23/21 02:57 114/65 02/23/21 02:56 114/65 02/23/21 02:00 115 H 35 H 114/65 94 02/23/21 00:00 116 H 24 H 116/60 94 02/22/21 23:56 116 H 25 H 94 02/22/21 21:45 115 H 30 H 111/65 94 02/22/21 20:07 115 H 104/71 02/22/21 20:00 36.6 C 115 H 35 H 111/65 94 02/22/21 18:09 115 H 113/62 02/22/21 18:00 113 H 32 H 113/62 95 02/22/21 17:53 114 H 02/22/21 16:00 37.1 C 114 H 35 H 105/63 95 Intake/Output Intake/Output: Intake & Output 02/20/21 02/21/21 02/22/21 02/23/21 23:59 23:59 23:59 23:59 Intake Total 1200 3680 2500 100 Output Total 500 520 350 60 Balance 700 3160 2150 40 Meds/Results Medications: Active Medications Generic Name Dose Route Start Last Admin Trade Name Freq PRN Reason Stop Dose Admin Dextrose 12.5 gm 02/21/21 08:13 Dextrose 50% 25 Gm/50 Ml Syringe IV PUSH PRN PRN Hypoglycemia Protocol Enoxaparin Sodium 30 mg 02/23/21 09:00 Enoxaparin 30 Mg/0.3 Ml Syringe SUB-Q DAILY SEBLE
--- NOTE | 2021-02-23 10:51 | WPDGIPROGNO ---
Progress Note: A&P Assessment and Plan (1) Septic shock: Code(s): A41.9 - Sepsis, unspecified organism; R65.21 - Severe sepsis with septic shock Status: Acute Assessment and Plan: Continue Levophed, vasopressin and stress dose hydrocortisone blood culture sent and are pending Emergent central venous catheter placed in right IJ on presentation to ICU Lactic acid level has normalized opefully can be weanedfrom pressors 02/23 Still requiring vasopressors to keep her systolic near 100. (2) Obstructive jaundice: Code(s): K83.1 - Obstruction of bile duct Status: Acute Assessment and Plan: <del>In</del> <del>view</del>of marked leukocytosis, septic shock, , she clearly has suppurative cholangitis. ERCP needs to be done to releive obstruction as soon as possible, hopefully in the next day or 2. However, having her gallbladder drained at least with the catheter, should help to some extent until she can have a safe ERCP Bilirubin is increasing as is alkaline phosphatase. ERCP needs to be performed but anesthesia as concern is her lying prone with her body habitus and being hypotensive on pressors already this would be very high risk. I am hopeful that we can proceed with ERCP on Thursday. This of course will not do much for her renal failure and other systemic problems but does need to be addressed (3) Acute cholecystitis: Code(s): K81.0 - Acute cholecystitis Status: Acute Assessment and Plan: percutaneous drain has been placed in GB likely cholecystectomy sometime in the future Additional Plan we will have to take it day-to-day as to when we can perform her ERCP safely. Obviously this is Anesthesiology's call. with less staff on the weekends they would prefer it be done Thursday. I will restart her Lovenox for now. I am going to hope that we can perform an ERCP assuming she is off pressors or least more stable, on Thursday. Subjective Date/time seen: 02/23/21 10:51 There is not significant change in her condition. She remains hypotensive, even with pressors. Temp is 37.8? there is marked elevation her creatinine kinase. She is too sedated to give me any history. creatinine which was normal on admission is now over 8. Exam Const: General: other ( sedated) Nutritional Appearance: obese Eyes: Sclera: abnormal sclerae and scleral abnormality ( icterus is developing) Cardio: Rhythm: regular rhythm GI: Inspection: obesity and other ( gallbladder drain in place) GI Palp: Yes abdominal tenderness ( she does react to palpation in upper abdomen) Objective Data Vital Signs Vital Signs: Vital Signs - 24 hr 02/22/21 11:30 02/22/21 12:00 02/22/21 12:06 Temperature 37.2 C Pulse Rate 113 H 114 H 114 H Respiratory Rate 33 H 29 H 40 H Blood Pressure 104/59 L Pulse Oximetry 92 94 94 02/22/21 12:10 02/22/21 13:50 02/22/21 13:53 Temperature Pulse Rate 114 H 114 H 116 H Respiratory Rate Blood Pressure 104/59 L 115/77 Pulse Oximetry 02/22/21 13:56 02/22/21 14:00 02/22/21 16:00 Temperature 37.1 C Pulse Rate 116 H 114 H 114 H Respiratory Rate 26 H 35 H Blood Pressure 115/77 108/72 105/63 Pulse Oximetry 95 95 02/22/21 17:53 02/22/21 18:00 02/22/21 18:09 Temperature Pulse Rate 114 H 113 H 115 H Respiratory Rate 32 H Blood Pressure 113/62 113/62 Pulse Oximetry 95 02/22/21 20:00 02/22/21 20:07 02/22/21 21:45 Temperature 36.6 C Pulse Rate 115 H 115 H 115 H Respiratory Rate 35 H 30 H Blood Pressure 111/65 104/71 111/65 Pulse Oximetry 94 94 02/22/21 23:56 02/23/21 00:00 02/23/21 02:00 Temperature Pulse Rate 116 H 116 H 115 H Respiratory Rate 25 H 24 H 35 H Blood Pressure 116/60 114/65 Pulse Oximetry 94 94 94 02/23/21 02:56 02/23/21 02:57 02/23/21 03:55 Temperature Pulse Rate 116 H Respiratory Rate 30 H Blood Pressure 114/65 114/65 Pulse Oximetry 94 02/23/21 04:00 02/23/21 05:00 02/23/21 0
[2021-02-23 11:40] LABS: Glucose Point of Care 282 mg/dl (65-105)
[2021-02-23] MEDS: NOREPINEPHRINE 8 MG/D5W 250 ML 8 MG/250 ML BAG 20.63 MG IV CONT ×2 (12:00→22:13)
[2021-02-23] MEDS: metroNIDAZOLE 500 MG/ISO 100ML 500 MG/100 ML BAG 100 MG IVPB ×3 (14:54→23:12)
--- NOTE | 2021-02-23 15:20 | PM.PNGS ---
Progress Note: A&P Assessment and Plan (1) Acute cholecystitis: Code(s): K81.0 - Acute cholecystitis Status: Acute Assessment and Plan: should be adequately treated with cholecystostomy tube. If no bile per tube tomorrow, will get cholecystogram to verify placement in the gallbladder. (2) Septic shock: Code(s): A41.9 - Sepsis, unspecified organism; R65.21 - Severe sepsis with septic shock Status: Acute Assessment and Plan: ERCP is being contemplated for acute cholangitis as the source. No procedure done today as patient is on high dose of vasopressor agents. Continues antibiotics and critical care management Subjective Subjective Date/Time Seen: 02/23/21 15:20 Patient reports: other ( Very drowsy, nonverbal) Interval history: Remains critically ill in the ICU on pressors with septic shock and jaundice. Review of Systems Review of Systems: ROS unobtainable: Yes unobtainable due to medical condition Exam GI: Inspection: non-distended, obesity and other ( bloody drainage noted perc cholecystostomy tube) GI Palp: Yes Soft to palpation and Yes Tenderness to palpation present (GI) ( right upper quadrant) Objective Data Vital Signs Vital Signs: Vital Signs - 24 hr 02/22/21 16:00 02/22/21 17:53 02/22/21 18:00 Temperature 37.1 C Pulse Rate 114 H 114 H 113 H Respiratory Rate 35 H 32 H Blood Pressure 105/63 113/62 Pulse Oximetry 95 95 02/22/21 18:09 02/22/21 20:00 02/22/21 20:07 Temperature 36.6 C Pulse Rate 115 H 115 H 115 H Respiratory Rate 35 H Blood Pressure 113/62 111/65 104/71 Pulse Oximetry 94 02/22/21 21:45 02/22/21 23:56 02/23/21 00:00 Temperature Pulse Rate 115 H 116 H 116 H Respiratory Rate 30 H 25 H 24 H Blood Pressure 111/65 116/60 Pulse Oximetry 94 94 94 02/23/21 02:00 02/23/21 02:56 02/23/21 02:57 Temperature Pulse Rate 115 H Respiratory Rate 35 H Blood Pressure 114/65 114/65 114/65 Pulse Oximetry 94 02/23/21 03:55 02/23/21 04:00 02/23/21 05:00 Temperature 39.1 C H Pulse Rate 116 H 116 H 113 H Respiratory Rate 30 H 44 H Blood Pressure 107/66 111/64 Pulse Oximetry 94 94 02/23/21 06:00 02/23/21 06:10 02/23/21 06:37 Temperature Pulse Rate 112 H 113 H Respiratory Rate 35 H Blood Pressure 100/59 L 100/59 L 78/47 L Pulse Oximetry 94 02/23/21 07:04 02/23/21 08:00 02/23/21 09:52 Temperature 37.8 C H Pulse Rate 109 H 105 H Respiratory Rate 27 H Blood Pressure 87/51 L 109/58 L Pulse Oximetry 96 99 02/23/21 10:00 Temperature 38.1 C H Pulse Rate 96 Respiratory Rate 26 H Blood Pressure 102/52 L Pulse Oximetry 98 Intake/Output Intake/Output: Intake & Output 02/20/21 02/21/21 02/22/21 02/23/21 23:59 23:59 23:59 23:59 Intake Total 1200 3680 2500 100 Output Total 500 520 350 60 Balance 700 3160 2150 40 Meds/Results Medications: Active Medications Generic Name Dose Route Start Last Admin Trade Name Freq PRN Reason Stop Dose Admin Dextrose 12.5 gm 02/21/21 08:13 Dextrose 50% 25 Gm/50 Ml Syringe IV PUSH PRN PRN Hypoglycemia Protocol Enoxaparin Sodium 30 mg 02/23/21 09:00 Enoxaparin 30 Mg/0.3 Ml Syringe SUB-Q DAILY SEBLE Glucagon 1 mg 02/21/21 08:13 Glucagon For Inj 1 Mg Vial IM PRN PRN Hypoglycemia Protocol Glucose 15 gm 02/21/21 08:13 Glucose Oral Gel 15 Gm Of Glucse In 37.5 Gm Tube PO PRN PRN Hypoglycemia Protocol Hydrocortisone Sodium Succinate 100 mg 02/21/21 14:00 02/23/21 14:55 Hydrocortisone Sodium Succinate 100 Mg/2 Ml Vial IV PUSH 100 mg Q8HR SEBLE Administration Norepinephrine Bitartrate 8 mg in 250 mls @ 9.375 mls/hr 02/21/21 08:15 02/23/21 06:37 Levophed 8 Mg/D5w 250 Ml IV CONT 5 mcg/min .[id number] SEBLE 9.38 mls/hr Titration Protocol 5 MCG/MIN Dextrose 1,000 mls @ 100 mls/hr 02/21/21 08:13 Dextrose 5% 1,000 Ml IVPB PRN PRN Hypoglyce
[2021-02-23] MEDS: ONDANSETRON INJ 4 MG/2 ML VIAL IV PUSH ×2 (17:11→20:38)
[2021-02-23 20:50] LABS: Glucose Point of Care 258 mg/dl (65-105)
[2021-02-23 20:54] LABS: Glucose Point of Care 293 mg/dl (65-105)
[2021-02-24] VITALS (12 sets, daily range): BP systolic 57–115; BP diastolic 44–58; PULSE 96–180; RESP 23–27; TEMP 37.2–38; O2SAT 93–97
[2021-02-24 00:11] LABS: Glucose Point of Care 284 mg/dl (65-105)
[2021-02-24] MEDS: INSULIN ASPART (*BKC) 100 UNITS/ML SUB-Q ×3 (00:16→08:02)
[2021-02-24] MEDS: CENTRAL LINE FLUSH 10 ML IV PUSH (04:23)
[2021-02-24 05:09] LABS: Hematocrit 34.7 % (37.0-47.0); Hemoglobin 12.5 g/dL (12.0-15.0); Mean Corpuscular Hemoglobin 33.4 pg (26-34); Mean Corpuscular Volume 92.8 fl (80-100); Mean Platelet Volume 10.4 fl (7.4-10.4); Platelet Count Result 410 k/mm3 (150-375); Red Blood Count 3.74 M/mm3 (4.2-5.4); Red Cell Distribution Width 14.2 % (11.5-14.5)
[2021-02-24] MEDS: metroNIDAZOLE 500 MG/ISO 100ML 500 MG/100 ML BAG 100 MG IVPB (05:18)
[2021-02-24] MEDS: HYDROCORTISONE SODIUM SUCCINATE 100 MG/2 ML VIAL IV PUSH (05:18)
[2021-02-24 05:31] LABS: Albumin Level 2.7 g/dL (3.5-5.1); Alkaline Phosphatase 1065 U/L (38-126); Anion Gap 17 mmol/L (8-16); Bilirubin,Total 9.3 mg/dL (0.2-1.3); Blood Urea Nitrogen 113 mg/dL (7-17); Calcium 7.6 mg/dL (8.4-10.2); Carbon Dioxide 24 mmol/L (22-30); Chloride 98 mmol/L (98-107); Estimated CRCL calculation 8 ml/min; Estimated Glomerular Filt Rate 4; Glucose 264 mg/dL (65-110); Magnesium 2.9 mg/dL (1.6-2.3); Potassium 5.4 mmol/L (3.4-5.0); Sodium 139 mmol/L (137-145)
[2021-02-24 05:32] LABS: Alanine Aminotransferase 919 U/L (4-35)
[2021-02-24 05:56] LABS: Aspartate Amino Transferase 2580 U/L (14-36)
[2021-02-24] MEDS: MORPHINE SULFATE (*CRX) 4 MG/ML INJ IV PUSH (07:39)
[2021-02-24] MEDS: INSULIN HUMAN REGULAR (*BKC) 100 UNITS/ML 10 UNITS IV PUSH (07:41)
[2021-02-24] MEDS: DEXTROSE 50% 25 GM/50 ML SYRINGE IV PUSH (07:41)
[2021-02-24] MEDS: INSULIN GLARGINE (*BKC) 100 UNITS/ML 30 UNITS SUB-Q (08:03)
[2021-02-24 08:20] LABS: Glucose Point of Care 210 mg/dl (65-105)
[2021-02-24] MEDS: NOREPINEPHRINE 8 MG/D5W 250 ML 8 MG/250 ML BAG 13 MG IV CONT (08:26)
[2021-02-24] MEDS: METOPROLOL TARTRATE INJ 5 MG/5 ML VIAL IV PUSH (08:33)
--- NOTE | 2021-02-24 09:00 | WPDINTPN ---
Progress Note: A&P Assessment and Plan (1) Septic shock: Code(s): A41.9 - Sepsis, unspecified organism; R65.21 - Severe sepsis with septic shock Status: Acute Assessment and Plan: Secondary to cholecystitis, cholangitis and UTI Patient was given 4 L of saline bolus on presentation and started on IV fluids. 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 [employer] principal anticoagulation: Code(s): Z79.01 - nursing home (current) use of anticoagulants Status: Acute Assessment and Plan: Eliquis is on hold (3) Obstructive jaundice: Code(s): K83.1 - Obstruction of bile duct Status: Acute (4) Acute cholecystitis: Code(s): K81.0 - Acute cholecystitis Status: Acute Assessment and Plan: Status post ultrasound-guided cholecystostomy placement Discussed with general surgery who are managing drain at this time Continue empiric antibiotics Culture sent and pending (5) Urinary tract infection: Code(s): N39.0 - Urinary tract infection, site not specified Status: Acute Assessment and Plan: Zosyn should cover for UTI Urine culture is growing Klebsiella which intermediate to Zosyn. Switch antibiotic cefepime and Flagyl (6) MONTRELL (acute kidney injury): Code(s): N17.9 - Acute kidney failure, unspecified Status: Acute Assessment and Plan: Likely prerenal which may have progressed to ATN secondary to sepsis Creatinine continues to worsen and urine output is poor Monitor electrolytes urine output and creatinine CT did not show any hydronephrosis Nephrology is following I gave patient patient insulin and D50 this morning for slightly elevated potassium. 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 Now also has sepsis and uremia Protecting airway at this time but may worsen further I obtained ABG yesterdaywhich showed adequate ventilation and no hypercarbia CT head on presentation showed old infarcts and cerebrovascular disease Monitor and avoid sedatives (9) Atrial fibrillation with RVR: Code(s): I48.91 - Unspecified atrial fibrillation Status: Acute Assessment and Plan: brief episode this morning which converted to sinus tach with IV Lopressor x1 Additional Plan DVT prophylaxis -SCDs for now, she did receive Lovenox today but is on hold for now Nutrition -NPO Code Status -I spoke to patient's brother Jose by phone yesterday and we discussed patient's including cholecystitis cholangitis septic shock and acute kidney injury. We also discussed the patient will likely need hemodialysis. Discussed options of ERCP, delay behind ERCP and eventual need for gallbladder surgery. He told me the patient only wanted conservative therapy and did not wanted any aggressive intervention. He requested the patient be made DNR yesterday as per her wishes. Wanted to wait another 24 hours to see if her kidney function recovers or if she makes any signs of improvement. I again spoke to him this morning and updated him with events of overnight. He states that he does not see any improvement with conservative therapy and at this point would like to proceed with comfort care considering the fact that she is in lot of pain from her gallbladder infection. I explained him the comfort measures process and answered his questions.
--- NOTE | 2021-02-24 10:19 | PM.PNGS ---
Progress Note: A&P Assessment and Plan (1) Septic shock: Code(s): A41.9 - Sepsis, unspecified organism; R65.21 - Severe sepsis with septic shock Status: Acute Assessment and Plan: Discussed with evp. Family may be withdrawing care. I will order CT of the abdomen as well as cholecystogram and Dr. Becerra will evaluate whether patient is stable enough to go for this imaging. (2) Obstructive jaundice: Code(s): K83.1 - Obstruction of bile duct Status: Acute Assessment and Plan: Bilirubin continues to climb (3) Acute cholecystitis: Code(s): K81.0 - Acute cholecystitis Status: Acute Assessment and Plan: No drainage per cholecystostomy tube, only old blood, bloody drainage there yesterday as well. Check imaging as above to verify its appropriate location. The may have had hemorrhagic cholecystitis which caused bleeding and common bile duct obstruction from the blood. Subjective Subjective Date/Time Seen: 02/24/21 10:19 Patient reports: other (Somnolent, non responsive, not intubated but on pressors) Review of Systems Review of Systems: ROS unobtainable: Yes unobtainable due to medical condition Exam GI: Inspection: other (No drainage per cholecystostomy tube, only old blood) GI Palp: Yes Soft to palpation and Yes Tenderness to palpation present (GI) (Right upper quadrant) Objective Data Vital Signs Vital Signs: Vital Signs - 24 hr 02/23/21 10:30 02/23/21 10:45 02/23/21 11:00 Temperature Pulse Rate 100 100 103 H Respiratory Rate Blood Pressure 77/68 L 88/49 L 62/34 L Pulse Oximetry 02/23/21 12:00 02/23/21 14:00 02/23/21 16:00 Temperature 38.1 C H 37.9 C H 36.6 C Pulse Rate 96 96 92 Respiratory Rate 26 H 22 H 20 Blood Pressure 102/52 L 103/56 L 117/64 Pulse Oximetry 98 95 94 02/23/21 18:00 02/23/21 20:00 02/23/21 20:37 Temperature 36.6 C 37.1 C Pulse Rate 92 92 93 Respiratory Rate 20 22 H Blood Pressure 117/64 100/58 L 100/58 L Pulse Oximetry 94 94 02/23/21 21:24 02/23/21 22:13 02/23/21 23:32 Temperature Pulse Rate 93 97 96 Respiratory Rate 22 H 22 H Blood Pressure 101/61 113/60 Pulse Oximetry 95 95 02/23/21 23:53 02/24/21 00:00 02/24/21 02:00 Temperature 37.2 C Pulse Rate 99 96 101 H Respiratory Rate 25 H 23 H Blood Pressure 107/57 L 99/58 L Pulse Oximetry 96 95 02/24/21 03:51 02/24/21 04:00 02/24/21 04:23 Temperature 38.0 C H Pulse Rate 104 H 106 H 103 H Respiratory Rate 24 H 27 H Blood Pressure 82/56 L 90/54 L Pulse Oximetry 95 97 02/24/21 05:20 02/24/21 05:26 02/24/21 08:00 Temperature 37.3 C Pulse Rate 106 H 103 H 147 H Respiratory Rate 25 H 24 H Blood Pressure 98/56 L 98/56 L 82/44 L Pulse Oximetry 93 93 02/24/21 08:03 02/24/21 08:26 02/24/21 08:29 Temperature Pulse Rate 103 H 168 H 175 H Respiratory Rate Blood Pressure 115/57 L 75/49 L 57/44 L Pulse Oximetry 02/24/21 08:33 Temperature Pulse Rate 180 H Respiratory Rate Blood Pressure Pulse Oximetry Intake/Output Intake/Output: Intake & Output 02/21/21 02/22/21 02/23/21 02/24/21 23:59 23:59 23:59 23:59 Intake Total 3680 2500 1950 450 Output Total 520 350 510 200 Balance 3160 2150 1440 250 Meds/Results Medications: Active Medications Generic Name Dose Route Start Last Admin Trade Name Freq PRN Reason Stop Dose Admin Atropine Sulfate 1 - 2 drop 02/24/21 09:00 Atropine Sulfate 1% Ophth Soln 5 Ml Bottle SUBLINGUAL Q4H PRN Secretions Dextrose 12.5 gm 02/21/21 08:13 Dextrose 50% 25 Gm/50 Ml Syringe IV PUSH PRN PRN Hypoglycemia Protocol Enoxaparin Sodium 30 mg 02/23/21 09:00 02/23/21 15:26 Enoxaparin 30 Mg/0.3 Ml Syringe SUB-Q Not Given DAILY SEBLE Glucagon 1 mg 02/21/21 08:13 Glucagon For Inj 1 Mg Vial IM PRN PRN Hypoglycemia Protocol Glucose 15 gm 12/02/21 08:13 Glucose Oral Gel 15 Gm Of Glucse In 37.5
[2021-02-24] MEDS: MORPHINE SULFATE (*CRX) 2 MG/ML INJ 5 MG IV PUSH (11:17)
[2021-02-24] MEDS: LORazepam INJ (*CRX) 2 MG/ML VIAL IV PUSH (11:18)
--- NOTE | 2021-02-24 15:25 | PM.DDS ---
Discharge Summary Date and Time Date of : 02/24/21 Time of : 14:11 Provider Pronounced By: Mahnaz Holliday RN Probable Cause of Probable Cause of : Sepsis Summary Hospital Course: Patient is a 60-year-old female who presents the ER with reports of new onset confusion as well as abdominal pain and vomiting. She is from a custodial and was noted to have jaundice. She has a history of CVA with right-sided weakness and expressive aphasia and most of the history was very limited because of this.CT scan and RUQ ultrasound suggest acute cholecystitis as well as a dilated common bile duct. This in the setting of transaminitis is concerning for biliary obstruction. There is also a possibility that her leukocytosis and acute illness could be related to ascending cholangitis rather than cholecystitis alone. GI has been consulted and she is scheduled for an ERCP. Continue broad-spectrum IV antibiotics, IV fluids, and analgesics, per surgery recommendation. Given the patient multiple comorbidities, she represent a high risk surgical risk candidate. We agree with the surgical advice to continue with the ERCP and place a percutaneous cholecystostomy tube in Radiology if necessary. On 02/21/2021, the patient presents persistent hypotension despite a bolus of IV fluid overnight. Patient was treated aggressively with 2 L normal saline IV boluses. She was transferred to ICU where she was given 2 additional L of saline bolus, started on Levophed; vasopressin and stress dose hydrocortisone were started. Emergent central venous catheter placed in right IJ on presentation to ICU. Despite those measures, the patient experienced severe hypotension. In view of marked leukocytosis, septic shock, patient clearly has suppurative cholangitis. ERCP was planned to relieve obstruction as soon as possible. On 02/21/2021, she underwent successful ultrasound-guided cholecystostomy tube placement. Continue empiric antibiotics. Culture sent and pending. Due to worsening creatinine, nephrology was consulted; she was diagnosed with acute kidney injury from pre renal azotemia due to 3rd spacing from sepsis but also may have ATN because of the severity of her illness and need for pressors. Renal ultrasound did nt show morphologic abnormalities. Additional Data Confirmation of as documented by pronouncing clinician: Pupillary Reflex, Palpable Pulses, Response to Stimuli, Heart Tones and Breath Sounds Name of Provider Notified: Dr Gaston Was code activated?: No Provider Requests Autopsy: No Family Requests Autopsy: No Airline Transport Pilot Notified: Yes Date [facility] Notified of : 02/24/21 Time [facility] Notified of : 14:23 Advance directives: Yes Hospice patient?: Yes (Comfort measures.)
== END 2021-02-24 14:11 | disposition expired | DRG 871 ==
LOC: ANHED 20:47 → ANH3MEDSUR 02-20 00:49 → ANHICU 02-22 09:22 → ANH2MED 02-24 15:40 → ANH3MEDSUR 02-27 12:06 → ANHICU 02-27 12:06
PROVIDERS: Internal Medicine; Internal Medicine Nephrology; Nurse Practitioner Family; Surgery; Admitting Provider Internal Medicine; Emergency Provider Emergency Medicine; PCP Family Medicine; Visit Provider Internal Medicine
DX: A41.9 Sepsis, unspecified organism (principal); K83.1 Obstruction of bile duct; R65.21 Severe sepsis with septic shock; K81.0 Acute cholecystitis; I69.351 Hemiplegia and hemiparesis following cerebral infarction affecting right dominant side; Z68.42 Body mass index [BMI] 45.0-49.9, adult; N17.9 Acute kidney failure, unspecified; E87.1 Hypo-osmolality and hyponatremia; N39.0 Urinary tract infection, site not specified; K83.09 Other cholangitis; G93.40 Encephalopathy, unspecified; I50.30 Unspecified diastolic (congestive) heart failure; I11.0 Hypertensive heart disease with heart failure; I69.320 Aphasia following cerebral infarction; L89.609 Pressure ulcer of unspecified heel, unspecified stage; L89.159 Pressure ulcer of sacral region, unspecified stage; E11.65 Type 2 diabetes mellitus with hyperglycemia; I48.91 Unspecified atrial fibrillation; Z66 Do not resuscitate; R77.8 Other specified abnormalities of plasma proteins; R93.89 Abnormal findings on diagnostic imaging of other specified body structures; E66.01 Morbid (severe) obesity due to excess calories; F03.90 Unspecified dementia, unspecified severity, without behavioral disturbance, psychotic disturbance, mood disturbance, and anxiety; I87.2 Venous insufficiency (chronic) (peripheral); Z79.01 Long term (current) use of anticoagulants; Z79.4 Long term (current) use of insulin; Z79.899 Other long term (current) drug therapy; Z86.14 Personal history of Methicillin resistant Staphylococcus aureus infection
CPT/HCPCS: 36415; 36600; 47490; 70450; 71045; 74176; 76705; 76775; 80048; 80053; 80076; 81001; 81050; 82043; 82550; 82805; 82948; 83036; 83605; 83690; 83735; 84100; 84134; 84156; 84300; 84484; 84540; 85025; 85027; 85610; 85730; 87040; 87070; 87075; 87077; 87086; 87088; 87102; 87186; 87205; 87206; 93005; 93306; 93308; 96361; 96365; 96366; 96372; 96375; 99285; A9270; C1729; C1751; G0378; J0692; J1650; J1720; J1815; J2060; J2270; J2405; J2543; J7030